=== PATIENT | female | born 1950 | race Caucasian/White ===

== ENCOUNTER 2016-05-10 09:39 | Outpatient (CLI) | payer MEDICARE, OTHER | END 2016-05-10 09:40 | disposition home or self-care (01) | DX: Z12.31 Encounter for screening mammogram for malignant neoplasm of breast (principal); Z80.3 Family history of malignant neoplasm of breast ==

== ENCOUNTER 2016-05-10 09:40 | Outpatient (CLI) | payer MEDICARE, OTHER | END 2016-05-10 09:41 | disposition home or self-care (01) | DX: M85.88 Other specified disorders of bone density and structure, other site (principal) ==

== ENCOUNTER 2016-07-19 05:23 | Emergency (ER) | payer MEDICARE, OTHER ==
[2016-07-19] MEDS ORDERED: IBUPROFEN 600 MG TABLET PO STA (05:40)
[2016-07-19] MEDS ORDERED: ACETAMINOPHEN 325 MG TABLET PO STA (05:41)
[2016-07-19] MEDS ORDERED: oxyCOD/ACETAMIN 5 MG/325 MG TABLET PO STA (06:25)
[2016-07-19] MEDS ORDERED: oxyCOD/ACETAMIN 5 MG/325 MG TABLET PO ONE (06:40)
== END 2016-07-19 06:46 | disposition home or self-care (01) ==
DX: E11.9 Type 2 diabetes mellitus without complications (principal); S82.841A Displaced bimalleolar fracture of right lower leg, initial encounter for closed fracture; X50.0XXA Overexertion from strenuous movement or load, initial encounter; X50.1XXA Overexertion from prolonged static or awkward postures, initial encounter; Y93.9 Activity, unspecified; Y92.009 Unspecified place in unspecified non-institutional (private) residence as the place of occurrence of the external cause; Y99.9 Unspecified external cause status
CPT/HCPCS: 29505; 73610; 99283; 99284; A9270

== ENCOUNTER 2016-07-25 10:25 | Day surgery (SDC) | payer MEDICARE, OTHER ==
[2016-07-25] MEDS ORDERED: ceFAZolin 2 GM/50 ML 50 ML IV ONE (10:26)
[2016-07-25] MEDS ORDERED: LACTATED RINGERS 1,000 ML IV ONE ×2 (11:04→13:10)
[2016-07-25] MEDS ORDERED: INSULIN REGULAR HUMAN 100 UNIT/1 ML 10 ML MDV ONE (11:19)
[2016-07-25] MEDS ORDERED: fentaNYL 100 MCG/2 ML VIAL IVP ONE (12:00)
[2016-07-25] MEDS ORDERED: LIDOCAINE-MPF 2% 5 ML VIAL IM ONE (12:00)
[2016-07-25] MEDS ORDERED: KETOROLAC 30 MG/ML VIAL IVP ONE (12:00)
[2016-07-25] MEDS ORDERED: ONDANSETRON 4 MG/2 ML VIAL IVP ONE (12:00)
[2016-07-25] MEDS ORDERED: HYDROmorphone 1 MG/ML SYRINGE IVP ONE (12:00)
[2016-07-25] MEDS ORDERED: MIDAZOLAM 2 MG/2 ML VIAL IVP ONE (12:00)
[2016-07-25] MEDS ORDERED: ACETAMINOPHEN 1,000 MG/100 ML VIAL IV ONE (12:00)
[2016-07-25] MEDS ORDERED: PROPOFOL 200 MG/20 ML VIAL IVP ONE (12:00)
[2016-07-25] MEDS ORDERED: ROPIVACAINE 0.5% PF 20 ML AMPULE EP ONE (12:00)
[2016-07-25] MEDS ORDERED: BUPIVACAINE 0.5% PF 10 ML VIAL SUBQ ONE ×2 (12:36→13:25)
[2016-07-25] MEDS ORDERED: ACETAMINOPHEN 1,000 MG/100 ML 100 ML IV PRN (20:08)
[2016-07-25] MEDS ORDERED: ONDANSETRON 4 MG/2 ML VIAL IVP PRN (20:08)
[2016-07-25] MEDS ORDERED: LACTATED RINGERS 1,000 ML IV SCH (21:00)
[2016-07-25] MEDS ORDERED: oxyCOD/ACETAMIN 5 MG/325 MG TABLET PO PRN (21:31)
== END 2016-07-25 10:26 | disposition home or self-care (01) ==
PROC: 0QSG04Z Reposition Right Tibia with Internal Fixation Device, Open Approach (ICD-10-PCS; 2016-07-25)
PROC: 0QSJ04Z Reposition Right Fibula with Internal Fixation Device, Open Approach (ICD-10-PCS; principal; 2016-07-25 11:30)
DX: S82.841A Displaced bimalleolar fracture of right lower leg, initial encounter for closed fracture (principal); X50.1XXA Overexertion from prolonged static or awkward postures, initial encounter; Y92.008 Other place in unspecified non-institutional (private) residence as the place of occurrence of the external cause; E11.9 Type 2 diabetes mellitus without complications; G47.30 Sleep apnea, unspecified; M19.90 Unspecified osteoarthritis, unspecified site; Z83.49 Family history of other endocrine, nutritional and metabolic diseases; Z82.61 Family history of arthritis; Z83.3 Family history of diabetes mellitus; Z81.8 Family history of other mental and behavioral disorders; Z80.9 Family history of malignant neoplasm, unspecified; Z79.84 Long term (current) use of oral hypoglycemic drugs
CPT/HCPCS: 27814; 73600; A9270; C1713; J0131; J0690; J1170; J1815; J7120

== ENCOUNTER 2016-11-15 07:35 | Outpatient (CLI) | payer MEDICARE, OTHER ==
--- NOTE | 2016-11-15 12:22 | MRI Report ---
EXAM: RIGHT SHOULDER MRI WITHOUT CONTRAST EXAM DATE: 11/15/2016 08:20 AM. CLINICAL HISTORY: Impingement syndrome of right shoulder. COMPARISON: None. TECHNIQUE: Multiplanar, multisequence T1-weighted and fluid-sensitive sequences of the shoulder witho ut contrast. Other: None. FINDINGS: Rotator Cuff: Full-thickness tear of the distal anterior supraspinatus measuring 1.2 cm medial to lat eral and 1.4 cm anteroposterior. Moderate to severe thickening and increased intrasubstance signal th roughout the distal supraspinatus and infraspinatus as well as upper fibers of the subscapularis. Mil d atrophy of the supraspinatus with minimal fatty infiltration. Long Head Biceps Tendon: Thickening and increased intrasubstance signal throughout the intra-articula r portion. Otherwise intact. Labrum: Linear high signal consistent with small tear at the base of the lower anterior labrum. Adjac ent subchondral cyst formation and mild degree of marrow edema. Some blunting of the superior labrum. Remainder of the labrum appears intact. Bones and Articular Surfaces: There may be small cartilage fissuring adjacent to the anteroinferior l abral tear. Mild cartilage thinning over the humeral head. Irregularity of the humeral head subchondr al bone plate. Marrow edema throughout the humeral head most pronounced in the subchondral region. Ap pearance suggests either humeral head avascular necrosis with some collapse of the articular surface versus late subacute or chronic fracture deformity and secondary degenerative change. Acromioclavicular Joint: Mild degenerative change. Type II acromion. IMPRESSION: 1. Full-thickness tear of the distal anterior supraspinatus measuring 1.2 x 1.4 cm. 2. Moderate to severe supraspinatus, infraspinatus and subscapularis tendinosis. 3. Tear at the anteroinferior glenoid with some adjacent cartilage fissuring, subchondral edema and s ubchondral cyst formation. 4. Deformity of the humeral head subchondral bone plate with pronounced subchondral edema. 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 Alternatively, old posttraumatic deformity with secondary degenerative change. 5. Moderate tendinosis of the intra-articular long head biceps. [facility] MUSCULOSKELET[facility]IOLOG[facility] SECTION Referring Provider Line: [phone] SITE ID: [id number]
== END 2016-11-15 07:36 | disposition home or self-care (01) ==
LOC: DI 07:35
PROVIDERS: ATTEND Orthopaedic Surgery
DX: S46.811A Strain of other muscles, fascia and tendons at shoulder and upper arm level, right arm, initial encounter (principal); M21.821 Other specified acquired deformities of right upper arm; M75.91 Shoulder lesion, unspecified, right shoulder

== ENCOUNTER 2016-12-10 10:49 | Outpatient (CLI) | payer MEDICARE, OTHER ==
[2016-12-10 11:03] LABS: BASOPHILS % (AUTO) 0.4 %; EOSINOPHILS # (AUTO) 0.1 10^3/uL (0.0-0.7); EOSINOPHILS % (AUTO) 0.9 %; HCT - HEMATOCRIT 45.5 % (37.0-47.0); HGB - HEMOGLOBIN 15.3 g/dL (12.0-16.0); LYMPHOCYTES # (AUTO) 1.7 10^3/uL (1.5-3.5); LYMPHOCYTES % (AUTO) 18.6 %; MEAN CORPUSCULAR HEMOGLOBIN 31.4 pg (27.0-31.0); MEAN CORPUSCULAR HGB CONC 33.6 g/dL (32.0-36.0); MEAN CORPUSCULAR VOLUME 93.4 fL (81.0-99.0); MEAN PLATELET VOLUME 7.8 fL (7.9-10.8); MONOCYTES # (AUTO) 0.7 10^3/uL (0.0-1.0); MONOCYTES % (AUTO) 8.1 %; NEUTROPHILS # (AUTO) 6.4 10^3/uL (1.5-6.6); RED BLOOD COUNT 4.88 10^6/uL (4.20-5.40); RED CELL DISTRIBUTION WIDTH 13.2 % (12.0-15.0); UNCORRECTED WHITE BLOOD COUNT 8.9 x10^3/uL; WHITE BLOOD COUNT 8.9 x10^3/uL (4.8-10.8)
[2016-12-10 11:34] LABS: ALBUMIN/GLOBULIN RATIO 1.3 (1.0-2.2); BILIRUBIN,TOTAL 0.7 mg/dL (0.2-1.0); CALCIUM 9.4 mg/dL (8.5-10.3); CREATININE 0.7 mg/dL (0.4-1.0); POTASSIUM 4.1 mmol/L (3.5-5.0); TOTAL PROTEIN 7.5 g/dL (6.7-8.2)
== END 2016-12-10 10:50 | disposition home or self-care (01) ==
LOC: LAB 10:49
PROVIDERS: ATTEND Orthopaedic Surgery
DX: Z01.818 Encounter for other preprocedural examination (principal); Z79.899 Other long term (current) drug therapy
CPT/HCPCS: 36415; 80053; 85025; 93005

== ENCOUNTER → 2016-12-11 | Outpatient (CLI) | payer MEDICARE, OTHER ==
[2016-12-11 20:12] LABS: CHOL/HDL RATIO 4.9 (<4.4); CHOLESTEROL 251 mg/dL; HDL CHOLESTEROL 51 mg/dL; LDL/HDL RATIO 2.7 (<4.4); TRIGLYCERIDES 307 mg/dL; VLDL CHOLESTEROL 61 mg/dL
[2016-12-11 20:37] LABS: HEMOGLOBIN A1C 1.68 g/dL
[2016-12-11 20:42] LABS: THYROID STIMULATING HORMONE 1.99 uIU/mL (0.34-5.60)
== END ==
LOC: LAB.WCP 08:00
PROVIDERS: ATTEND Family Medicine
DX: E11.9 Type 2 diabetes mellitus without complications (principal); R53.83 Other fatigue
CPT/HCPCS: 36415; 80061; 83036; 84439; 84443; 84481; 84482

== ENCOUNTER 2017-04-15 08:00 | Outpatient (CLI) | payer MEDICARE, OTHER ==
[2017-04-15 19:02] LABS: BASOPHILS % (AUTO) 0.3 %; EOSINOPHILS # (AUTO) 0.1 10^3/uL (0.0-0.7); EOSINOPHILS % (AUTO) 1.7 %; HGB - HEMOGLOBIN 14.2 g/dL (12.0-16.0); LYMPHOCYTES # (AUTO) 1.8 10^3/uL (1.5-3.5); LYMPHOCYTES % (AUTO) 21.3 %; MEAN CORPUSCULAR HEMOGLOBIN 31.3 pg (27.0-31.0); MEAN CORPUSCULAR VOLUME 94.9 fL (81.0-99.0); MONOCYTES # (AUTO) 0.8 10^3/uL (0.0-1.0); MONOCYTES % (AUTO) 9.5 %; NEUTROPHILS # (AUTO) 5.7 10^3/uL (1.5-6.6); NEUTROPHILS % (AUTO) 67.2 %; PLT - PLATELET COUNT 263 10^3/uL (130-450); RED BLOOD COUNT 4.55 10^6/uL (4.20-5.40); WHITE BLOOD COUNT 8.6 x10^3/uL (4.8-10.8)
[2017-04-15 19:25] LABS: ALBUMIN 4.2 g/dL (3.2-5.5); ALBUMIN/GLOBULIN RATIO 1.3 (1.0-2.2); ALKALINE PHOSPHATASE 107 IU/L (42-121); ALT ALANINE AMINOTRANSFERASE 31 IU/L (10-60); AST ASPARTATE AMINOTRANSFERASE 23 IU/L (10-42); BILIRUBIN,TOTAL 0.8 mg/dL (0.2-1.0); BUN - BLOOD UREA NITROGEN 16 mg/dL (6-20); CALCIUM 8.9 mg/dL (8.5-10.3); CARBON DIOXIDE - CO2 21 mmol/L (21-32); CHLORIDE 104 mmol/L (101-111); CHOL/HDL RATIO 4.9 (<4.4); CHOLESTEROL 231 mg/dL; CREATININE 0.5 mg/dL (0.4-1.0); GFR - MDRD 123 (>89); GLUCOSE 143 mg/dL (70-100); HDL CHOLESTEROL 47 mg/dL; LDL CHOLESTEROL,CALCULATED 151 mg/dL; LDL/HDL RATIO 3.2 (<4.4); SODIUM 134 mmol/L (135-145); TOTAL PROTEIN 7.4 g/dL (6.7-8.2); VLDL CHOLESTEROL 33 mg/dL
[2017-04-15 19:40] LABS: HB2 TOTAL 15.2 g/dL; HEMOGLOBIN A1C 0.99 g/dL; HEMOGLOBIN A1C % 8.1 % (4.6-6.2)
== END 2017-04-15 08:01 | disposition home or self-care (01) ==
LOC: LAB.WCP 08:00
PROVIDERS: ATTEND Family Medicine
DX: E11.65 Type 2 diabetes mellitus with hyperglycemia (principal)
CPT/HCPCS: 36415; 80053; 80061; 82043; 83036; 85025

== ENCOUNTER 2017-06-06 14:47 | Outpatient (CLI) | payer MEDICARE, OTHER | END 2017-06-06 14:48 | disposition home or self-care (01) | LOC: RT 14:47 | PROVIDERS: ATTEND Orthopaedic Surgery | DX: Z01.810 Encounter for preprocedural cardiovascular examination (principal) | CPT/HCPCS: 93005 ==

== ENCOUNTER 2017-06-20 08:00 | Outpatient (CLI) | payer MEDICARE, OTHER ==
[2017-06-20 18:59] LABS: BASOPHILS % (AUTO) 0.5 %; EOSINOPHILS # (AUTO) 0.1 10^3/uL (0.0-0.7); EOSINOPHILS % (AUTO) 1.6 %; HGB - HEMOGLOBIN 13.4 g/dL (12.0-16.0); LYMPHOCYTES # (AUTO) 1.7 10^3/uL (1.5-3.5); LYMPHOCYTES % (AUTO) 25.3 %; MEAN CORPUSCULAR HEMOGLOBIN 30.4 pg (27.0-31.0); MEAN CORPUSCULAR HGB CONC 32.6 g/dL (32.0-36.0); MEAN CORPUSCULAR VOLUME 93.3 fL (81.0-99.0); MEAN PLATELET VOLUME 8.2 fL (7.9-10.8); MONOCYTES # (AUTO) 0.6 10^3/uL (0.0-1.0); MONOCYTES % (AUTO) 9.3 %; NEUTROPHILS # (AUTO) 4.4 10^3/uL (1.5-6.6); NEUTROPHILS % (AUTO) 63.3 %; PLT - PLATELET COUNT 275 10^3/uL (130-450); RED BLOOD COUNT 4.41 10^6/uL (4.20-5.40); RED CELL DISTRIBUTION WIDTH 13.6 % (12.0-15.0); WHITE BLOOD COUNT 6.9 x10^3/uL (4.8-10.8)
[2017-06-20 19:25] LABS: BILIRUBIN,URINE NEGATIVE (NEGATIVE); GLUCOSE, URINE (UA) 100 mg/dL (NEGATIVE); KETONES,URINE (UA) NEGATIVE (NEGATIVE); LEUKOCYTE ESTERASE, URINE NEGATIVE (NEGATIVE); NITRITE,URINE NEGATIVE (NEGATIVE); OCCULT BLOOD,URINE NEGATIVE (NEGATIVE); PROTEIN,URINE 30 mg/dL (NEGATIVE); UROBILINOGEN,URINE 0.2 (NORMAL) E.U./dL (NORMAL)
[2017-06-20 19:38] LABS: HB2 TOTAL 14.2 g/dL; HEMOGLOBIN A1C 1.05 g/dL; HEMOGLOBIN A1C % 8.9 % (4.6-6.2)
[2017-06-20 19:42] LABS: CLARITY,URINE HAZY (CLEAR)
[2017-06-20 19:44] LABS: CALCIUM 8.6 mg/dL (8.5-10.3); CREATININE 0.5 mg/dL (0.4-1.0)
[2017-06-20 20:33] LABS: BACTERIA,URINE None Seen /HPF (None Seen); RBC,URINE 0-5 /HPF (0-5); SQUAMOUS EPITHELIAL CELL,UR FEW Squamous (<= Few)
== END 2017-06-20 08:01 | disposition home or self-care (01) ==
LOC: LAB.WCP 08:00
PROVIDERS: ATTEND Orthopaedic Surgery
DX: Z01.812 Encounter for preprocedural laboratory examination (principal); D64.9 Anemia, unspecified; M25.511 Pain in right shoulder; N39.0 Urinary tract infection, site not specified; R73.9 Hyperglycemia, unspecified
CPT/HCPCS: 36415; 80048; 81001; 81003; 83036; 84466; 85025; 87086

== ENCOUNTER 2018-06-16 14:40 | Outpatient (CLI) | payer MEDICARE, OTHER ==
[2018-06-16 19:04] LABS: HB2 TOTAL 16.8 g/dL; HEMOGLOBIN A1C 1.66 g/dL; HEMOGLOBIN A1C % 11.2 % (4.6-6.2)
[2018-06-16 19:11] LABS: ALBUMIN 3.8 g/dL (3.2-5.5); ALKALINE PHOSPHATASE 132 IU/L (42-121); ALT ALANINE AMINOTRANSFERASE 24 IU/L (10-60); AST ASPARTATE AMINOTRANSFERASE 26 IU/L (10-42); BILIRUBIN,TOTAL 1.1 mg/dL (0.2-1.0); BUN - BLOOD UREA NITROGEN 10 mg/dL (6-20); CALCIUM 9.3 mg/dL (8.5-10.3); CARBON DIOXIDE - CO2 26 mmol/L (21-32); CHLORIDE 98 mmol/L (101-111); CHOL/HDL RATIO 4.3 (<4.4); CHOLESTEROL 232 mg/dL; CREATININE 0.5 mg/dL (0.4-1.0); GFR - MDRD 123 (>89); GLUCOSE 187 mg/dL (70-100); HDL CHOLESTEROL 54 mg/dL; LDL CHOLESTEROL,CALCULATED 133 mg/dL; LDL/HDL RATIO 2.5 (<4.4); SODIUM 136 mmol/L (135-145); TOTAL PROTEIN 7.6 g/dL (6.7-8.2); VLDL CHOLESTEROL 45 mg/dL
[2018-06-16 19:27] LABS: BASOPHILS % (AUTO) 0.3 %; EOSINOPHILS # (AUTO) 0.1 10^3/uL (0.0-0.7); EOSINOPHILS % (AUTO) 1.2 %; HGB - HEMOGLOBIN 15.3 g/dL (12.0-16.0); LYMPHOCYTES # (AUTO) 2.1 10^3/uL (1.5-3.5); LYMPHOCYTES % (AUTO) 21.3 %; MEAN CORPUSCULAR HEMOGLOBIN 30.6 pg (27.0-31.0); MEAN CORPUSCULAR HGB CONC 33.1 g/dL (32.0-36.0); MEAN CORPUSCULAR VOLUME 92.2 fL (81.0-99.0); MEAN PLATELET VOLUME 8.4 fL (7.9-10.8); MONOCYTES # (AUTO) 0.8 10^3/uL (0.0-1.0); MONOCYTES % (AUTO) 7.9 %; NEUTROPHILS # (AUTO) 6.8 10^3/uL (1.5-6.6); NEUTROPHILS % (AUTO) 69.3 %; PLT - PLATELET COUNT 300 10^3/uL (130-450); WHITE BLOOD COUNT 9.8 x10^3/uL (4.8-10.8)
== END 2018-06-16 14:41 | disposition home or self-care (01) ==
LOC: LAB.WCP 14:40
PROVIDERS: ATTEND Family Medicine
DX: E11.65 Type 2 diabetes mellitus with hyperglycemia (principal)
CPT/HCPCS: 36415; 80053; 80061; 82043; 83036; 83721; 84443; 85025

== ENCOUNTER 2018-09-17 11:54 | Outpatient (CLI) | payer MEDICARE, OTHER ==
[2018-09-17 19:17] LABS: HGB - HEMOGLOBIN 14.7 g/dL (12.0-16.0); MEAN CORPUSCULAR HEMOGLOBIN 31.2 pg (27.0-31.0); MEAN CORPUSCULAR HGB CONC 33.5 g/dL (32.0-36.0); MEAN CORPUSCULAR VOLUME 93.2 fL (81.0-99.0); MEAN PLATELET VOLUME 8.9 fL (7.9-10.8); RED BLOOD COUNT 4.71 10^6/uL (4.20-5.40); RED CELL DISTRIBUTION WIDTH 13.7 % (12.0-15.0); WHITE BLOOD COUNT 8.7 x10^3/uL (4.8-10.8)
[2018-09-17 19:34] LABS: BUN - BLOOD UREA NITROGEN 13 mg/dL (6-20); CARBON DIOXIDE - CO2 22 mmol/L (21-32); CHLORIDE 101 mmol/L (101-111); CREATININE 0.5 mg/dL (0.4-1.0); GFR - MDRD 123 (>89); GLUCOSE 436 mg/dL (70-100); SODIUM 134 mmol/L (135-145); URIC ACID 3.2 mg/dL (2.6-7.2)
[2018-09-17 20:16] LABS: CRP - C-REACTIVE PROTEIN < 1.0 mg/dL (0-1.0)
[2018-09-18 19:44] LABS: HB2 TOTAL 15.9 g/dL; HEMOGLOBIN A1C 1.9 g/dL; HEMOGLOBIN A1C % 13.1 % (4.6-6.2)
== END 2018-09-17 11:55 | disposition home or self-care (01) ==
LOC: LAB.WCP 11:54
PROVIDERS: ATTEND Family Medicine
DX: E11.8 Type 2 diabetes mellitus with unspecified complications (principal); M79.10 Myalgia, unspecified site
CPT/HCPCS: 36415; 80048; 81599; 83036; 84443; 84550; 85027; 85651; 86140

== ENCOUNTER 2018-10-06 18:40 | Outpatient (CLI) | payer MEDICARE, OTHER | END 2018-10-06 19:15 | disposition home or self-care (01) | LOC: LAB.R 18:40 | PROVIDERS: ATTEND Physician Assistant Medical | DX: N30.00 Acute cystitis without hematuria (principal) | CPT/HCPCS: 87077; 87086; 87181 ==

== ENCOUNTER 2019-03-11 08:00 | Outpatient (CLI) | payer MEDICARE, OTHER ==
[2019-03-11 19:01] LABS: ALBUMIN 3.9 g/dL (3.2-5.5); ALBUMIN/GLOBULIN RATIO 1.1 (1.0-2.2); BILIRUBIN,TOTAL 0.8 mg/dL (0.2-1.0); CALCIUM 8.9 mg/dL (8.5-10.3); CREATININE 0.6 mg/dL (0.4-1.0); TOTAL PROTEIN 7.3 g/dL (6.7-8.2)
[2019-03-11 19:22] LABS: HB2 TOTAL 14.8 g/dL; HEMOGLOBIN A1C 0.9 g/dL; HEMOGLOBIN A1C % 7.7 % (4.6-6.2)
== END 2019-03-11 23:59 | disposition home or self-care (01) ==
LOC: LAB.WCP 08:00
PROVIDERS: ATTEND Family Medicine
DX: Z79.4 Long term (current) use of insulin (principal); E11.65 Type 2 diabetes mellitus with hyperglycemia
CPT/HCPCS: 36415; 80053; 83036

== ENCOUNTER 2019-04-16 12:35 | Outpatient (CLI) | payer MEDICARE, OTHER | END 2019-04-16 12:36 | disposition critical access hospital (66) | LOC: EMS 12:35 | PROVIDERS: ATTEND Surgery | DX: R06.03 Acute respiratory distress (principal); R06.02 Shortness of breath; R05 Cough | CPT/HCPCS: A0425; A0427 ==

== ENCOUNTER 2019-04-16 12:48 | Emergency (ER) | payer MEDICARE, OTHER ==
[2019-04-16] MEDS ORDERED: ALBUTEROL NEB 2.5 MG/3 ML INH STA (13:32)
[2019-04-16] MEDS ORDERED: predniSONE 20 MG TABLET PO STA (14:22)
--- NOTE | 2019-04-16 14:22 | ED Physician Documentation ---
History of Present Illness - Stated complaint Stated Complaint: SOA - Chief complaint Chief Complaint: Resp - History obtained from History obtained from: Patient, EMS - History of Present Illness Timing: How many days ago (Several days) Pain level max: 0 Pain level now: 0 Improved by: nebulizer Worsened by: exertion, cough - Additonal information Additional information: 68-year-old female presents to the emergency department with a cough for the past few weeks. She states over the past few days had difficulty breathing. Has used inhalers in the past, but she states that she has not used 1 this time. She saw her doctor this morning and was prescribed steroids and an inhaler, she started feeling more short of breath when she got home and called 911. EMS arrived and states that she appeared hypoxic. They gave her a DuoNeb en route and she is feeling better. No fevers. Review of Systems Ten Systems: 10 systems reviewed and negative Constitutional: denies: Fever, Chills Nose: denies: Rhinorrhea / runny nose, Congestion GI: denies: Vomiting, Diarrhea Skin: denies: Rash Musculoskeletal: denies: Neck pain, Back pain Neurologic: denies: Headache PD PAST MEDICAL HISTORY - Past Medical History Cardiovascular: None Respiratory: Sleep apnea Endocrine/Autoimmune: Type 2 diabetes GI: GERD : None HEENT: None Psych: Depression, Anxiety, ADD/ADHD Musculoskeletal: Osteoarthritis, Fibromyalgia Derm: None - Past Surgical History Past Surgical History: Yes General: Colonoscopy Ortho: Carpal Tunnel surgery, Other HEENT: Other - Present Medications Home Medications: Ambulatory Orders Medication Instructions Recorded Confirmed Acetaminophen [Tylenol] 650 mg PO Q4HR PRN 12/10/16 09/29/18 Cyanocobalamin (Vitamin B-12) 1,000 mcg PO BID 12/10/16 09/29/18 [Vitamin B-12] Folic Acid 0.4 mg PO DAILY 12/10/16 09/29/18 Ibuprofen [Motrin] 400 - 800 mg PO Q4HR PRN 12/10/16 09/29/18 Metformin HCl [Metformin HCl ER] 1,000 mg PO BID 12/10/16 09/29/18 Ascorbic Acid [Vitamin C] 500 mg PO DAILY 09/29/18 09/29/18 Cholecalciferol (Vitamin D3) 4,000 unit PO DAILY 09/29/18 09/29/18 [Vitamin D] Lactobacillus Acidophilus 1 each PO DAILY 09/29/18 09/29/18 [Probiotic Acidophilus] Phenylephrine HCl [Sudafed PE] 10 mg PO DAILY PM PRN 09/29/18 09/29/18 diphenhydrAMINE [Benadryl] 25 mg PO Q4-6H PRN 09/29/18 09/29/18 Albuterol Sulfate [Proair Hfa 1 - 2 puffs INH Q4H PRN #1 inhaler 04/16/19 Inhaler] - Allergies Allergies/Adverse Reactions: Allergies Allergy/AdvReac Type Severity Reaction Status Date / Time No Known Drug Allergies Allergy Verified 04/16/19 12:52 - Social History Does the pt smoke?: No Smoking Status: Never smoker Does the pt drink ETOH?: No Does the pt have substance abuse?: No - Immunizations Immunizations are current?: Yes - POLST Patient has POLST: No PD ED PE NORMAL - Vitals Vital signs reviewed: Yes - General General: Alert and oriented X 3, No acute distress, Well developed/nourished - HEENT HEENT: Ears normal, Moist mucous membranes, Pharynx benign - Neck Neck: Supple, no meningeal sign - Cardiac Cardiac: RRR - Respiratory Respiratory: No respiratory distress, Other (Diminished breath sounds and wheezing bilaterally) - Abdomen Abdomen: Soft, Non tender, Non distended - Derm Derm: Warm and dry - Extremities Extremities: No calf tenderness / cord - Neuro Neuro: Alert and oriented X 3 - Psych Psych: Normal mood, Normal affect Results - Vitals Vitals: Vital Signs - 24 hr 04/16/19 04/16/19 04/16/19 12:52 13:10 14:01 Temperature 37.0 C 36.8 C Heart Rate 130 H 106 H 97 Respiratory 18 24 20 Rate Blood Pressure 144/84 H 144/83 H O2 Saturation 84 L 96 04/16/19 04/16/19 14:37 15:41 Temperature 36.8 C Heart Rate 103 H 99 Respiratory 18 24 Rate Blood Pressure 138/78 H 137/74 H O2 Saturation 92 94 Oxygen O2 Source Room air Oxygen Flow Rate 4 - Labs Labs: Laboratory Tests 04/16/19 04/16/19 14:19 14:19 WBC 16.6 H RBC 4.88 Hgb 15.3 Hct 46.0 MCV 94.3 MCH 31.4 H MCHC 33.3 RDW 13.2 Plt Count 292 MPV 9.2 Neut # (Auto) 14.0 H Lymph # (Auto) 1.1 L Alger # (Auto) 1.1 H Eos # (Auto) 0.1 Baso # (Auto) 0.1 Absolute Nucleated RBC 0.00 Nucleated RBC % 0.0 Sodium 134 L Potassium 4.1 Chloride 101 Carbon Dioxide 23 Anion Gap 10.0 BUN 16 Creatinine 0.7 Estimated GFR (MDRD) 83 L Glucose 224 H Calcium 9.0 Total Bilirubin 0.7 AST 48 H ALT 38 Alkaline Phosphatase 117 Total Protein 7.6 Albumin 3.9 Globulin 3.7 Albumin/Globulin Ratio 1.1 Lipase 72 H - Rads (name of study) cxr Radiology: Prelim report reviewed, EMP read contemporaneously, See rad report (No acute disease) PD MEDICAL DECISION MAKING - ED course Complexity details: reviewed results, re-evaluated patient, considered differential, d/w patient ED course: Patient feels better after steroids and nebulizer treatments. Patient is well- appearing, nontoxic. Afebrile. No hypoxia or respiratory distress after treatment. Ambulating without difficulty. She only has a nebulizer at home, will prescribe an inhaler for her as well. She already has a prednisone prescription at home. Patient counseled regarding signs and symptoms for which I believe and urgent re-evaluation would be necessary. Patient with good understanding of and agreement to plan and is comfortable going home at this time This document was made in part using voice recognition software. While efforts are made to proofread this document, sound alike and grammatical errors may occur. Departure - Departure Disposition: 01 Home, Self Care Clinical Impression: Viral URI Condition: Good Instructions: ED URI Viral W Wheezing Follow-Up: Vern Muhammad DO [Primary Care Provider] - Within 1 week Prescriptions: Albuterol Sulfate [Proair Hfa Inhaler] 1 - 2 puffs INH Q4H PRN #1 inhaler PRN Reason: Shortness Of Air/Wheezing Comments: Continue the prednisone and albuterol as prescribed by your doctor this morning. Return if you worsen. Discharge Date/Time: 04/16/19 16:04
[2019-04-16 14:25] LABS: BASOPHILS # (AUTO) 0.1 10^3/uL (0.0-0.1); BASOPHILS % (AUTO) 0.5 %; EOSINOPHILS # (AUTO) 0.1 10^3/uL (0.0-0.7); EOSINOPHILS % (AUTO) 0.6 %; HGB - HEMOGLOBIN 15.3 g/dL (12.0-16.0); LYMPHOCYTES # (AUTO) 1.1 10^3/uL (1.5-3.5); LYMPHOCYTES % (AUTO) 6.9 %; MEAN CORPUSCULAR HEMOGLOBIN 31.4 pg (27.0-31.0); MEAN CORPUSCULAR HGB CONC 33.3 g/dL (32.0-36.0); MEAN CORPUSCULAR VOLUME 94.3 fL (81.0-99.0); MEAN PLATELET VOLUME 9.2 fL (7.9-10.8); MONOCYTES # (AUTO) 1.1 10^3/uL (0.0-1.0); MONOCYTES % (AUTO) 6.6 %; NEUTROPHILS % (AUTO) 84.4 %; PLT - PLATELET COUNT 292 10^3/uL (130-450); RED BLOOD COUNT 4.88 10^6/uL (4.20-5.40); RED CELL DISTRIBUTION WIDTH 13.2 % (12.0-15.0); WHITE BLOOD COUNT 16.6 x10^3/uL (4.8-10.8)
[2019-04-16] MEDS ORDERED: predniSONE 20 MG TABLET ONE (14:32)
--- NOTE | 2019-04-16 14:36 | XRAY Report ---
Reason: dyspnea Procedure Date: 04/16/2019 Accession Number: [id number] / [id number] Procedure: XR - Chest 1 View X-Ray CPT Code: 32783 Final Report FULL RESULT: EXAM: CHEST RADIOGRAPHY EXAM DATE: 04/16/2019 02:26 PM. CLINICAL HISTORY: Dyspnea. COMPARISON: None. TECHNIQUE: 1 view. FINDINGS: Lungs/Pleura: No focal opacities evident. No pleural effusion. No pneumothorax. Mediastinum: Atherosclerotic aortic calcification. Other: Potential small hiatal hernia. IMPRESSION: No consolidation. [facility]
[2019-04-16 14:38] LABS: ALBUMIN 3.9 g/dL (3.2-5.5); ALBUMIN/GLOBULIN RATIO 1.1 (1.0-2.2); BILIRUBIN,TOTAL 0.7 mg/dL (0.2-1.0); CREATININE 0.7 mg/dL (0.4-1.0); TOTAL PROTEIN 7.6 g/dL (6.7-8.2)
[2019-04-16 15:42] VITALS: BP 137/74
== END 2019-04-16 16:04 | disposition home or self-care (01) ==
LOC: EDUNIT# → ED 12:48
DX: J06.9 Acute upper respiratory infection, unspecified (principal); R06.2 Wheezing; E11.9 Type 2 diabetes mellitus without complications; Z79.84 Long term (current) use of oral hypoglycemic drugs
CPT/HCPCS: 36415; 71045; 80053; 83690; 85025; 94640; 99284; J7512

== ENCOUNTER 2019-04-16 23:32 | Emergency (ER) | payer MEDICARE, OTHER ==
--- NOTE | 2019-04-16 23:42 | ED Physician Documentation ---
PD HPI DYSPNEA - Stated complaint Stated Complaint: SOA - Chief complaint Chief Complaint: Resp - History obtained from History obtained from: Patient - History of Present Illness Timing - onset: How many weeks ago ("few weeks" (per patient) of sinus congestion with post-nasal drip and occasional cough and frequently "clearing throat". The cough has been steadily worsening, and became associated with dyspnea past 1-2 days. She saw her PMD this morning, was prescribed medication for her nebulizer as well as steroid (prednisone). Patient had not yet filled the rx when the difficulty breathing worsened and thus she came to [facility] ED. She was found to have wheezing on exam and responded well to neb treatements. Also given 60mg prednisone. CXR and blood tests were reassuring although 16K WBC noted. She says she felt back to baseline by the time she was discharged. She then filled the prescriptions. Her breathing worsened and thus she returns to the ED for reevaluation) Timing - duration: Weeks Timing - details: Gradual onset Pain level max: 0 Pain level now: 0 Improved by: Inhaler/neb, Rest Worsened by: Exertion Associated symptoms: Cough. No: Fever, Wheezing, Chest pain / discomfort, Palpitations, Diaphoresis, Bilateral edema, Unilateral edema Recently seen: Clinic, Emergency Dept Review of Systems Constitutional: denies: Fever, Chills, Sweats Ears: denies: Ear pain Throat: denies: Sore throat Cardiac: reports: Reviewed and negative Respiratory: reports: Dyspnea, Cough. denies: Hemoptysis, Wheezing GI: reports: Reviewed and negative Skin: denies: Rash Musculoskeletal: denies: Neck pain PD PAST MEDICAL HISTORY - Past Medical History Cardiovascular: None Respiratory: Sleep apnea Endocrine/Autoimmune: Type 2 diabetes GI: GERD : None HEENT: None Psych: Depression, Anxiety, ADD/ADHD Musculoskeletal: Osteoarthritis, Fibromyalgia Derm: None - Past Surgical History Past Surgical History: Yes General: Colonoscopy Ortho: Carpal Tunnel surgery, Other HEENT: Other - Present Medications Home Medications: Ambulatory Orders Medication Instructions Recorded Confirmed Acetaminophen [Tylenol] 650 mg PO Q4HR PRN 12/10/16 09/29/18 Cyanocobalamin (Vitamin B-12) 1,000 mcg PO BID 12/10/16 09/29/18 [Vitamin B-12] Folic Acid 0.4 mg PO DAILY 12/10/16 09/29/18 Ibuprofen [Motrin] 400 - 800 mg PO Q4HR PRN 12/10/16 09/29/18 Metformin HCl [Metformin HCl ER] 1,000 mg PO BID 12/10/16 09/29/18 Ascorbic Acid [Vitamin C] 500 mg PO DAILY 09/29/18 09/29/18 Cholecalciferol (Vitamin D3) 4,000 unit PO DAILY 09/29/18 09/29/18 [Vitamin D] Lactobacillus Acidophilus 1 each PO DAILY 09/29/18 09/29/18 [Probiotic Acidophilus] Phenylephrine HCl [Sudafed PE] 10 mg PO DAILY PM PRN 09/29/18 09/29/18 diphenhydrAMINE [Benadryl] 25 mg PO Q4-6H PRN 09/29/18 09/29/18 Albuterol Sulfate [Proair Hfa 1 - 2 puffs INH Q4H PRN #1 inhaler 04/16/19 Inhaler] - Allergies Allergies/Adverse Reactions: Allergies Allergy/AdvReac Type Severity Reaction Status Date / Time No Known Drug Allergies Allergy Verified 04/16/19 23:36 - Social History Does the pt smoke?: No Smoking Status: Never smoker Does the pt drink ETOH?: No Does the pt have substance abuse?: No - Immunizations Immunizations are current?: Yes - POLST Patient has POLST: No PD ED PE NORMAL - Vitals Vital signs reviewed: Yes - General General: Alert and oriented X 3, No acute distress, Well developed/nourished, Other (inspiratory stridor but otherwise NAD, speaking in full sentences) - HEENT HEENT: Moist mucous membranes, Pharynx benign - Neck Neck: Supple, no meningeal sign - Cardiac Cardiac: RRR, No murmur - Respiratory Respiratory: No respiratory distress, Clear bilaterally - Abdomen Abdomen: Soft, Non tender - Derm Derm: Normal color, Warm and dry - Extremities Extremities: No edema Results - Vitals Vitals: Oxygen O2 Source Room air - Labs Labs: Laboratory Tests 04/17/19 04/17/19 01:58 01:58 WBC 13.9 H RBC 4.62 Hgb 14.1 Hct 43.3 MCV 93.7 MCH 30.5 MCHC 32.6 RDW 13.3 Plt Count 335 MPV 9.2 Neut # (Auto) 11.4 H Lymph # (Auto) 1.2 L Ray # (Auto) 1.2 H Eos # (Auto) 0.0 Baso # (Auto) 0.0 Absolute Nucleated RBC 0.00 Nucleated RBC % 0.0 Sodium 137 Potassium 4.1 Chloride 104 Carbon Dioxide 22 Anion Gap 11.0 BUN 22 H Creatinine 0.9 Estimated GFR (MDRD) 62 L Glucose 235 H Calcium 9.4 - Rads (name of study) CT chest w/contrast Radiology: Prelim report reviewed, See rad report CT neck w/ contrast Radiology: Prelim report reviewed, See rad report PD MEDICAL DECISION MAKING - ED course Complexity details: reviewed results, re-evaluated patient, considered differential, d/w patient ED course: modest improvement after duoneb, both by patient report as well as noticeable decrease in inspiratory stridor. While awaiting CT results, her stridor and report of dyspnea worsened. Given another neb (albuterol). I discussed this case with process project engineer recreation coordinator at [facility]; he recommends I discuss case with ENT. Patient did not have noticeable improvement with albuterol, although she did subsequently gradually improve without further intervention. I then d/w Dr. Agee (ENT at [facility]); he recommends 20mg IV decadron and can discharge if she continues to improve. This medication/dose was given and patient continued to improve. Prior to discharge, she had no stridor at rest, mild inspiratory stridor with ambulation. She is comfortable with d/c and has appointment already arranged to see PMD on Friday. I encouraged her to return if worse in any way Departure - Departure Disposition: 01 Home, Self Care Clinical Impression: Stridor Dyspnea Qualifiers: Dyspnea type: unspecified Qualified Code(s): R06.00 - Dyspnea, unspecified Condition: Good Instructions: ED Dyspnea Shortness of Breath Follow-Up: Kem Agee MD [Physician No Access] - Vern Muhammad DO [Primary Care Provider] - (Friday as scheduled. ) Discharge Date/Time: 04/17/19 06:09
[2019-04-16] MEDS ORDERED: IPRATROPIUM/ALBUTEROL 3 ML NEB INH STA (23:44)
[2019-04-17 02:03] LABS: BASOPHILS % (AUTO) 0.1 %; HGB - HEMOGLOBIN 14.1 g/dL (12.0-16.0); LYMPHOCYTES # (AUTO) 1.2 10^3/uL (1.5-3.5); LYMPHOCYTES % (AUTO) 8.6 %; MEAN CORPUSCULAR HEMOGLOBIN 30.5 pg (27.0-31.0); MEAN CORPUSCULAR HGB CONC 32.6 g/dL (32.0-36.0); MEAN CORPUSCULAR VOLUME 93.7 fL (81.0-99.0); MEAN PLATELET VOLUME 9.2 fL (7.9-10.8); MONOCYTES # (AUTO) 1.2 10^3/uL (0.0-1.0); MONOCYTES % (AUTO) 8.3 %; NEUTROPHILS # (AUTO) 11.4 10^3/uL (1.5-6.6); NEUTROPHILS % (AUTO) 82.3 %; PLT - PLATELET COUNT 335 10^3/uL (130-450); RED BLOOD COUNT 4.62 10^6/uL (4.20-5.40); RED CELL DISTRIBUTION WIDTH 13.3 % (12.0-15.0); WHITE BLOOD COUNT 13.9 x10^3/uL (4.8-10.8)
[2019-04-17 02:10] LABS: CALCIUM 9.4 mg/dL (8.5-10.3); CREATININE 0.9 mg/dL (0.4-1.0)
[2019-04-17] MEDS ORDERED: IOVERSOL 320 100 ML VIAL IVP ONE ×2 (02:18→03:06)
--- NOTE | 2019-04-17 03:20 | CT Report ---
Reason: dyspnea, stridor Procedure Date: 04/17/2019 Accession Number: [id number] / [id number] Procedure: CT - CHEST W CPT Code: Final Report FULL RESULT: EXAM: CT CHEST EXAM DATE:04/17/2019 02:36 AM CLINICAL HISTORY: Dyspnea, stridor. COMPARISONS: None. TECHNIQUE: Routine helical CT imaging was performed through the chest. IV contrast: OPTI 320 100ML. Oral contrast No. Reconstructions: Coronal and sagittal. In accordance with CT protocol optimization, one or more of the following dose reduction techniques were utilized for this exam: automated exposure control, adjustment of mA and/or KV based on patient size, or use of iterative reconstructive technique. FINDINGS: Lungs/Pleura: Multifocal air trapping throughout both lungs greatest in the left lower lobe where there is also faint groundglass opacification. 5 mm nodule in the lateral segment of middle lobe image 2 of 3 series 11. Pulmonary vasculature is normal. No pleural effusion. No pneumothorax. Heart/mediastinum: Calcification at the wall of the left atrium. No pericardial effusion. No lymphadenopathy or mass. Bones: Unremarkable. Visualized Abdomen: Unremarkable. Other: Moderate coronary artery and mild aortic atherosclerotic calcifications. IMPRESSION: Multifocal air trapping throughout both lungs and ground glass opacification in the left lower lobe, which may reflect small airways disease from inflammation or infection. Calcification at the wall of the left atrium, which may reflect chronic thrombus. A workup for atrial fibrillation may be considered. Moderate coronary artery and mild aortic atherosclerotic calcifications. 5 mm pulmonary nodule in the right middle lobe. In the absence of risk factors, no further workup is warranted. In a patient with risk factors, a follow-up chest CT in 12 months may be considered. [facility]
--- NOTE | 2019-04-17 04:13 | CT Report ---
Reason: dyspnea, stridor Procedure Date: 04/17/2019 Accession Number: [id number] / [id number] Procedure: CT - SOFT TISSUE NECK W CPT Code: Final Report FULL RESULT: EXAM: CT SOFT TISSUE NECK WITH CONTRAST. EXAM DATE: 04/17/2019 03:02 AM. HISTORY: Dyspnea, stridor. COMPARISONS: None. TECHNIQUE: Routine soft tissue neck CT protocol with contrast. Reconstructions: Coronal and sagittal. IV contrast: OPTI 320 100ML. In accordance with CT protocol optimization, one or more of the following dose reduction techniques were utilized for this exam: automated exposure control, adjustment of mA and/or KV based on patient size, or use of iterative reconstructive technique. FINDINGS: There is no evidence of a mass lesion, abscess, or lymphadenopathy in the neck. The nasopharynx, oropharynx, and hypopharynx are unremarkable. Oral cavity is partially obscured by dental artifact but otherwise unremarkable. Floor of mouth is unremarkable. Major salivary glands appear normal. Laryngeal structures are unremarkable. Subglottic airway is widely patent. Thyroid gland appears normal. Partially visualized intracranial structures and orbits are unremarkable. Visualized sinuses and mastoid air cells are clear. Visualized lung apices are clear. Moderate degenerative change is noted in the lower cervical spine. IMPRESSION: 1. Unremarkable CT of neck soft tissues. 2. No evidence of a mass lesion, abscess, or lymphadenopathy in the neck. 3. Upper aerodigestive tract appears unremarkable. No evidence of airway compromise in the neck. [facility]
[2019-04-17] MEDS ORDERED: ALBUTEROL NEB 2.5 MG/3 ML INH STA (04:35)
[2019-04-17] MEDS ORDERED: DEXAMETHASONE 10 MG/ML VIAL IVP STA (05:01)
[2019-04-17 06:09] VITALS: BP 135/70
== END 2019-04-17 06:09 | disposition home or self-care (01) ==
LOC: ED 23:32
DX: R06.1 Stridor (principal); R06.00 Dyspnea, unspecified; R91.1 Solitary pulmonary nodule; E11.9 Type 2 diabetes mellitus without complications; J06.9 Acute upper respiratory infection, unspecified; R06.2 Wheezing; Z79.84 Long term (current) use of oral hypoglycemic drugs; G47.30 Sleep apnea, unspecified
CPT/HCPCS: 36415; 70491; 71045; 71260; 80048; 80053; 83690; 85025; 94640; 96374; 99284; J7512; Q9967

== ENCOUNTER 2019-04-22 11:01 | Outpatient (CLI) | payer MEDICARE, OTHER | END 2019-04-22 11:02 | disposition home or self-care (01) | LOC: DI 11:01 | PROVIDERS: ATTEND Family Medicine | DX: I25.10 Atherosclerotic heart disease of native coronary artery without angina pectoris (principal); I51.7 Cardiomegaly | CPT/HCPCS: 93306 ==

== ENCOUNTER 2019-05-07 13:00 | Outpatient (CLI) | payer MEDICARE, OTHER ==
--- NOTE | 2019-05-07 14:06 | CT Report ---
Reason: POSTNASAL DRIP, CHRONIC SINUSITIS Procedure Date: 05/07/2019 Accession Number: [id number] / [id number] Procedure: CT - Sinuses CPT Code: Final Report FULL RESULT: EXAM: CT SINUS EXAM DATE: 05/07/2019 01:33 PM. HISTORY: postnasal drip, chronic sinusitis. COMPARISONS: None. TECHNIQUE: Bone algorithm CT imaging performed through the sinuses. Iodinated IV contrast: None. Reconstructions: Multiplanar reformats. In accordance with CT protocol optimization, one or more of the following dose reduction techniques were utilized for this exam: automated exposure control, adjustment of mA and/or KV based on patient size, or use of iterative reconstructive technique. FINDINGS: Mastoid air cells are well aerated. Mucosal thickening versus sessile retention cyst/polyp formation is seen in each sphenoid sinus. Paranasal sinuses are otherwise clear. Nasal septum is minimally bowed to the right posteriorly. Nasal cavity is patent. The osteomeatal unit is patent bilaterally. IMPRESSION: 1. Mucosal thickening versus sessile retention cyst/polyp formation is seen in each sphenoid sinus. [facility]
--- NOTE | 2019-05-07 15:33 | XRAY Report ---
Reason: DYSPHONIA Procedure Date: 05/07/2019 Accession Number: [id number] / [id number] Procedure: FL - Esophogram CPT Code: Final Report FULL RESULT: EXAM: BARIUM ESOPHAGRAM EXAM DATE: 05/07/2019 02:52 PM. CLINICAL HISTORY: DYSPHONIA. COMPARISONS: None. TECHNIQUE: Routine double contrast esophagram. Fluoroscopy Time: 1 minute 18 seconds. Number of Images: 26. FINDINGS: Swallowing Mechanism: Normal. No tracheal aspiration or penetration. Esophageal Motility: Disorganized peristaltic stripping wave ending in diffuse esophageal spasm. Mucosa: Normal. No ulcerations or masses. Gastroesophageal Junction: There is a small hiatal hernia and spontaneous reflux. Other: None. IMPRESSION: Spontaneous reflux with diffuse esophageal spasm in the setting of small hiatal hernia. [facility]
== END 2019-05-07 13:01 | disposition home or self-care (01) ==
LOC: DI 13:00
PROVIDERS: ATTEND Otolaryngology
DX: J32.8 Other chronic sinusitis (principal); K21.9 Gastro-esophageal reflux disease without esophagitis; K44.9 Diaphragmatic hernia without obstruction or gangrene; K22.4 Dyskinesia of esophagus; R49.0 Dysphonia
CPT/HCPCS: 70486; 74220

== ENCOUNTER 2019-07-02 08:00 | Outpatient (CLI) | payer MEDICARE, OTHER ==
[2019-07-02 17:32] LABS: BASOPHILS # (AUTO) 0.1 10^3/uL (0.0-0.1); BASOPHILS % (AUTO) 0.6 %; EOSINOPHILS # (AUTO) 0.2 10^3/uL (0.0-0.7); HGB - HEMOGLOBIN 14.2 g/dL (12.0-16.0); LYMPHOCYTES # (AUTO) 1.8 10^3/uL (1.5-3.5); LYMPHOCYTES % (AUTO) 19.8 %; MEAN CORPUSCULAR HEMOGLOBIN 29.8 pg (27.0-31.0); MEAN CORPUSCULAR HGB CONC 32.3 g/dL (32.0-36.0); MEAN CORPUSCULAR VOLUME 92.2 fL (81.0-99.0); MEAN PLATELET VOLUME 9.8 fL (7.9-10.8); MONOCYTES # (AUTO) 0.8 10^3/uL (0.0-1.0); NEUTROPHILS # (AUTO) 6.1 10^3/uL (1.5-6.6); PLT - PLATELET COUNT 316 10^3/uL (130-450); RED BLOOD COUNT 4.76 10^6/uL (4.20-5.40); RED CELL DISTRIBUTION WIDTH 13.3 % (12.0-15.0)
[2019-07-02 18:28] LABS: ALBUMIN 4.2 g/dL (3.2-5.5); ALBUMIN/GLOBULIN RATIO 1.2 (1.0-2.2); ALKALINE PHOSPHATASE 102 IU/L (42-121); ALT ALANINE AMINOTRANSFERASE 23 IU/L (10-60); AST ASPARTATE AMINOTRANSFERASE 20 IU/L (10-42); BUN - BLOOD UREA NITROGEN 15 mg/dL (6-20); CARBON DIOXIDE - CO2 23 mmol/L (21-32); CHLORIDE 104 mmol/L (101-111); CHOL/HDL RATIO 4.6 (<4.4); CHOLESTEROL 223 mg/dL; CREATININE 0.6 mg/dL (0.4-1.0); CREATININE,URINE 159.3 mg/dL; GLUCOSE 161 mg/dL (70-100); HB2 TOTAL 14.5 g/dL; HDL CHOLESTEROL 49 mg/dL; HEMOGLOBIN A1C 0.95 g/dL; HEMOGLOBIN A1C % 8.1 % (4.6-6.2); LDL CHOLESTEROL,CALCULATED 145 mg/dL; MICROALBUM/CREATININE RATIO,UR 175.1 ug/mg (<30.0); MICROALBUMIN,URINE 27.9 mg/dL (0-300.0); SODIUM 137 mmol/L (135-145); TOTAL PROTEIN 7.6 g/dL (6.7-8.2); VLDL CHOLESTEROL 29 mg/dL
== END 2019-07-02 23:59 | disposition home or self-care (01) ==
LOC: LAB.WCP 08:00
PROVIDERS: ATTEND Family Medicine
DX: E11.9 Type 2 diabetes mellitus without complications (principal)
CPT/HCPCS: 36415; 80053; 80061; 82043; 82570; 83036; 83721; 85025

== ENCOUNTER 2020-02-22 08:00 | Outpatient (CLI) | payer MEDICARE, OTHER ==
[2020-02-22 17:49] LABS: BASOPHILS % (AUTO) 0.3 %; EOSINOPHILS # (AUTO) 0.1 10^3/uL (0.0-0.7); EOSINOPHILS % (AUTO) 1.6 %; LYMPHOCYTES # (AUTO) 2.1 10^3/uL (1.5-3.5); LYMPHOCYTES % (AUTO) 23.2 %; MEAN CORPUSCULAR HEMOGLOBIN 29.7 pg (27.0-31.0); MEAN CORPUSCULAR HGB CONC 32.1 g/dL (32.0-36.0); MEAN CORPUSCULAR VOLUME 92.6 fL (81.0-99.0); MEAN PLATELET VOLUME 10.3 fL (7.9-10.8); MONOCYTES # (AUTO) 0.8 10^3/uL (0.0-1.0); MONOCYTES % (AUTO) 8.3 %; PLT - PLATELET COUNT 301 10^3/uL (130-450); RED BLOOD COUNT 4.71 10^6/uL (4.20-5.40); RED CELL DISTRIBUTION WIDTH 13.8 % (12.0-15.0)
[2020-02-22 18:07] LABS: CREATININE,URINE 106.1 mg/dL; MICROALBUM/CREATININE RATIO,UR 74.5 ug/mg (<30.0); MICROALBUMIN,URINE 7.9 mg/dL (0-300.0)
[2020-02-22 18:16] LABS: ALBUMIN 3.9 g/dL (3.2-5.5); ALBUMIN/GLOBULIN RATIO 1.1 (1.0-2.2); ALKALINE PHOSPHATASE 118 IU/L (42-121); ALT ALANINE AMINOTRANSFERASE 24 IU/L (10-60); AST ASPARTATE AMINOTRANSFERASE 23 IU/L (10-42); BUN - BLOOD UREA NITROGEN 12 mg/dL (6-20); CARBON DIOXIDE - CO2 24 mmol/L (21-32); CHLORIDE 103 mmol/L (101-111); CHOL/HDL RATIO 3.3 (<4.4); CHOLESTEROL 157 mg/dL; CREATININE 0.4 mg/dL (0.4-1.0); GLUCOSE 188 mg/dL (70-100); HDL CHOLESTEROL 47 mg/dL; LDL CHOLESTEROL,CALCULATED 86 mg/dL; LDL/HDL RATIO 1.8 (<4.4); SODIUM 137 mmol/L (135-145); TOTAL PROTEIN 7.3 g/dL (6.7-8.2); VLDL CHOLESTEROL 24 mg/dL
== END 2020-02-22 23:59 | disposition home or self-care (01) ==
LOC: LAB.WCP 08:00
PROVIDERS: ATTEND Family Medicine
DX: E11.9 Type 2 diabetes mellitus without complications (principal)
CPT/HCPCS: 36415; 80053; 80061; 82043; 82570; 83036; 83721; 84443; 85025

== ENCOUNTER 2020-05-16 07:00 | Outpatient (CLI) | payer MEDICARE, OTHER ==
--- NOTE | 2020-05-16 20:43 | XRAY Report ---
PROCEDURE: Knee 3 View RT INDICATIONS: PX IN R KNEE TECHNIQUE: 3 views of the right knee(s) were acquired. COMPARISON: None. FINDINGS: Bones: No fractures or dislocations. Mild to moderate tricompartmental osteoarthritis is seen more prominent in medial femoral tibial compartment. No suspicious bony lesions. Soft tissues: No joint effusion. No suspicious soft tissue calcifications. IMPRESSION: Mild to moderate tricompartmental osteoarthritis more prominent in medial femoral tibial compartment. No right knee fracture or dislocation. No significant joint effusion. Reviewed by: Norman Campbell MD on 05/16/2020 8:42 PM PST Approved by: Norman Campbell MD on 05/16/2020 8:42 PM PST Station ID: [id number]
== END 2020-05-16 23:59 | disposition home or self-care (01) ==
LOC: DI.N 07:00
PROVIDERS: ATTEND Nurse Practitioner
DX: M17.11 Unilateral primary osteoarthritis, right knee (principal)

== ENCOUNTER 2020-05-23 08:00 | Outpatient (CLI) | payer MEDICARE, OTHER ==
[2020-05-23 18:02] LABS: CREATININE 0.5 mg/dL (0.4-1.0)
[2020-05-23 18:16] LABS: CREATININE,URINE 92.2 mg/dL; MICROALBUM/CREATININE RATIO,UR 201.7 ug/mg (<30.0); MICROALBUMIN,URINE 18.6 mg/dL (0-300.0)
[2020-05-23 20:18] LABS: HEMOGLOBIN A1c% 10.2 % (4.27-6.07)
== END 2020-05-23 23:59 | disposition home or self-care (01) ==
LOC: LAB.WCP 08:00
PROVIDERS: ATTEND Family Medicine
DX: E11.8 Type 2 diabetes mellitus with unspecified complications (principal)
CPT/HCPCS: 36415; 80048; 82043; 82570; 83036

== ENCOUNTER 2020-08-28 08:00 | Outpatient (CLI) | payer MEDICARE, OTHER ==
[2020-08-28 12:31] LABS: THYROID STIMULATING HORMONE 4.78 uIU/mL (0.34-5.60)
[2020-08-28 12:33] LABS: FREE T3 3.7 pg/mL (2.5-3.9)
[2020-08-28 12:34] LABS: FREE T4 (FREE THYROXINE) 0.7 ng/dL (0.58-1.64)
[2020-08-28 12:35] LABS: ALBUMIN 4.2 g/dL (3.2-5.5); ALBUMIN/GLOBULIN RATIO 1.3 (1.0-2.2); ALKALINE PHOSPHATASE 127 IU/L (42-121); ALT ALANINE AMINOTRANSFERASE 19 IU/L (10-60); AST ASPARTATE AMINOTRANSFERASE 22 IU/L (10-42); BILIRUBIN,TOTAL 0.8 mg/dL (0.2-1.0); BUN - BLOOD UREA NITROGEN 12 mg/dL (6-20); CARBON DIOXIDE - CO2 26 mmol/L (21-32); CHLORIDE 100 mmol/L (101-111); CHOL/HDL RATIO 5.2 (<4.4); CHOLESTEROL 234 mg/dL; CREATININE 0.6 mg/dL (0.4-1.0); GFR - MDRD 99 (>89); GLUCOSE 158 mg/dL (70-100); HDL CHOLESTEROL 45 mg/dL; LDL CHOLESTEROL,CALCULATED 155 mg/dL; LDL/HDL RATIO 3.4 (<4.4); SODIUM 134 mmol/L (135-145); TOTAL PROTEIN 7.5 g/dL (6.7-8.2); TRIGLYCERIDES 170 mg/dL; VLDL CHOLESTEROL 34 mg/dL
[2020-08-28 13:22] LABS: ESTIMATED AVERAGE GLUCOSE 214 mg/dL (70-100); HEMOGLOBIN A1c% 9.1 % (4.27-6.07)
== END 2020-08-28 23:59 | disposition home or self-care (01) ==
LOC: LAB.WCP 08:00
PROVIDERS: ATTEND Physician Assistant Medical
DX: E11.8 Type 2 diabetes mellitus with unspecified complications (principal)
CPT/HCPCS: 36415; 80053; 80061; 83036; 83721; 84439; 84443; 84481

== ENCOUNTER 2020-12-04 12:57 | Outpatient (CLI) | payer MEDICARE, OTHER ==
[2020-12-04 17:57] LABS: BASOPHILS # (AUTO) 0.1 10^3/uL (0.0-0.1); BASOPHILS % (AUTO) 0.6 %; EOSINOPHILS # (AUTO) 0.2 10^3/uL (0.0-0.7); EOSINOPHILS % (AUTO) 1.6 %; HCT - HEMATOCRIT 46.5 % (37.0-47.0); LYMPHOCYTES # (AUTO) 1.9 10^3/uL (1.5-3.5); LYMPHOCYTES % (AUTO) 17.3 %; MEAN CORPUSCULAR HEMOGLOBIN 30.1 pg (27.0-31.0); MEAN CORPUSCULAR HGB CONC 32.3 g/dL (32.0-36.0); MEAN CORPUSCULAR VOLUME 93.4 fL (81.0-99.0); MEAN PLATELET VOLUME 9.9 fL (7.9-10.8); MONOCYTES # (AUTO) 0.9 10^3/uL (0.0-1.0); MONOCYTES % (AUTO) 8.5 %; NEUTROPHILS # (AUTO) 7.7 10^3/uL (1.5-6.6); NEUTROPHILS % (AUTO) 71.3 %; PLT - PLATELET COUNT 339 10^3/uL (130-450); RED BLOOD COUNT 4.98 10^6/uL (4.20-5.40); RED CELL DISTRIBUTION WIDTH 13.3 % (12.0-15.0); WHITE BLOOD COUNT 10.8 x10^3/uL (4.8-10.8)
[2020-12-04 18:17] LABS: ALBUMIN 3.9 g/dL (3.2-5.5); ALBUMIN/GLOBULIN RATIO 1.1 (1.0-2.2); ALKALINE PHOSPHATASE 138 IU/L (42-121); ALT ALANINE AMINOTRANSFERASE 21 IU/L (10-60); AST ASPARTATE AMINOTRANSFERASE 23 IU/L (10-42); BUN - BLOOD UREA NITROGEN 12 mg/dL (6-20); CALCIUM 9.2 mg/dL (8.5-10.3); CARBON DIOXIDE - CO2 25 mmol/L (21-32); CHLORIDE 102 mmol/L (101-111); CHOL/HDL RATIO 4.5 (<4.4); CHOLESTEROL 204 mg/dL; CREATININE 0.7 mg/dL (0.4-1.0); GFR - MDRD 83 (>89); GLUCOSE 202 mg/dL (70-100); HDL CHOLESTEROL 45 mg/dL; LDL CHOLESTEROL,CALCULATED 126 mg/dL; LDL/HDL RATIO 2.8 (<4.4); POTASSIUM 4.2 mmol/L (3.5-5.0); SODIUM 136 mmol/L (135-145); TOTAL PROTEIN 7.6 g/dL (6.7-8.2); TRIGLYCERIDES 163 mg/dL; VLDL CHOLESTEROL 33 mg/dL
[2020-12-04 18:25] LABS: THYROID STIMULATING HORMONE 2.48 uIU/mL (0.34-5.60)
[2020-12-04 18:26] LABS: CREATININE,URINE 106.3 mg/dL; MICROALBUMIN,URINE 40.5 mg/dL (0-300.0)
[2020-12-04 20:08] LABS: ESTIMATED AVERAGE GLUCOSE 217 mg/dL (70-100); HEMOGLOBIN A1c% 9.2 % (4.27-6.07)
== END 2020-12-04 23:59 | disposition home or self-care (01) ==
LOC: LAB.WCP 12:57
PROVIDERS: ATTEND Family Medicine
DX: I10 Essential (primary) hypertension (principal); E78.5 Hyperlipidemia, unspecified; E11.8 Type 2 diabetes mellitus with unspecified complications
CPT/HCPCS: 36415; 80053; 80061; 82043; 82570; 83036; 83721; 84443; 85025

== ENCOUNTER 2021-03-16 13:35 | Outpatient (CLI) | payer MEDICARE, OTHER ==
[2021-03-16 18:25] LABS: ALBUMIN/GLOBULIN RATIO 1.1 (1.0-2.2); ALKALINE PHOSPHATASE 138 IU/L (42-121); ALT ALANINE AMINOTRANSFERASE 39 IU/L (10-60); AST ASPARTATE AMINOTRANSFERASE 28 IU/L (10-42); BILIRUBIN,TOTAL 0.9 mg/dL (0.2-1.0); BUN - BLOOD UREA NITROGEN 10 mg/dL (6-20); CALCIUM 8.9 mg/dL (8.5-10.3); CARBON DIOXIDE - CO2 26 mmol/L (21-32); CHLORIDE 98 mmol/L (101-111); CHOLESTEROL 216 mg/dL; CREATININE 0.5 mg/dL (0.4-1.0); GFR - MDRD 122 (>89); GLUCOSE 175 mg/dL (70-100); HDL CHOLESTEROL 43 mg/dL; LDL CHOLESTEROL,CALCULATED 130 mg/dL; POTASSIUM 4.2 mmol/L (3.5-5.0); SODIUM 134 mmol/L (135-145); TOTAL PROTEIN 7.5 g/dL (6.7-8.2); TRIGLYCERIDES 216 mg/dL; VLDL CHOLESTEROL 43 mg/dL
[2021-03-16 20:20] LABS: ESTIMATED AVERAGE GLUCOSE 189 mg/dL (70-100); HEMOGLOBIN A1c% 8.2 % (4.27-6.07)
== END 2021-03-16 23:59 | disposition home or self-care (01) ==
LOC: LAB.WCP 13:35
PROVIDERS: ATTEND Family Medicine
DX: E11.8 Type 2 diabetes mellitus with unspecified complications (principal)
CPT/HCPCS: 36415; 80053; 80061; 83036; 83721

== ENCOUNTER 2021-04-05 07:00 | Outpatient (CLI) | payer MEDICARE, OTHER ==
[2021-04-05] MEDS ORDERED: ALBUTEROL 1 PUFF INH STA (14:46)
== END 2021-04-05 23:59 | disposition home or self-care (01) ==
LOC: RT 07:00
PROVIDERS: ATTEND Family Medicine
DX: R06.02 Shortness of breath (principal)
CPT/HCPCS: 94060

== ENCOUNTER 2021-04-05 13:09 | Outpatient (CLI) | payer MEDICARE, OTHER ==
--- NOTE | 2021-04-05 15:56 | CT Report ---
PROCEDURE: CHEST WO INDICATIONS: SHORTNESS OF BREATH TECHNIQUE: Noncontrast 1mm axial images were acquired from the pulmonary apices to the posterior costophrenic an gles. Axial 5 mm soft tissue kernel reconstructions were performed as well as 8 mm axial MIP and cor onal and sagittal 5 mm reformations. For radiation dose reduction, the following was used: automate d exposure control, adjustment of mA and/or kV according to patient size. COMPARISON: 04/17/2019 FINDINGS: Image quality: Excellent. Lungs and pleura: Subtle bibasilar groundglass opacities are no longer seen. There are persistent sm all areas of air trapping throughout both lungs. No emphysematous changes. A subpleural right middle lobe nodule measuring about 4 mm is stable. No new nodules. No dense consolidation, pleural effusion, or pneumothorax. Central and peripheral airways are patent and of normal caliber. Mediastinum: Heart size is normal. Moderate coronary artery calcification. No pericardial effusion. No mediastinal adenopathy by size criteria. Thoracic aorta and central pulmonary arteries are norm al in size. Esophagus is normal in caliber. Small hiatal hernia. Bones and chest wall: No suspicious bony lesions. Multilevel degenerative endplate spurs throughout the thoracic spine. No vertebral body compression fractures. No axillary or supraclavicular adenopa thy by size criteria. The thyroid is normal in size and there are no incidental findings. Abdomen: Marked hepatic steatosis. Mildly prominent josh hepatis lymph node measuring 1.5 cm in víctor rt axis, . Visualized upper abdominal solid organs and bowel loops appear otherwise normal in the absence of contrast. IMPRESSION: 1. Persistent changes of mild air trapping throughout both lungs, but no new nodules, consolidations, or emphysematous changes. 2. Stable right middle lobe lung nodule. Follow-up in one year recommended. 3. Interval resolution of mild bibasilar groundglass opacities. 4. Moderate coronary artery atherosclerotic calcification. 5. Marked hepatic steatosis seen previously. There is also stable josh hepatis lymph node, potential ly reactive. Reviewed by: Celia Leavitt MD on 04/05/2021 3:55 PM PST Approved by: Celia Leavitt MD on 04/05/2021 3:55 PM PST Station ID: [id number]
== END 2021-04-05 13:10 | disposition home or self-care (01) ==
LOC: DI 13:09
PROVIDERS: ATTEND Family Medicine
DX: R06.02 Shortness of breath (principal); R91.1 Solitary pulmonary nodule; I25.10 Atherosclerotic heart disease of native coronary artery without angina pectoris; K76.0 Fatty (change of) liver, not elsewhere classified; J98.8 Other specified respiratory disorders

== ENCOUNTER 2021-06-13 13:45 | Outpatient (CLI) | payer MEDICARE, OTHER ==
[2021-06-13 18:00] LABS: BASOPHILS % (AUTO) 0.4 %; EOSINOPHILS # (AUTO) 0.2 10^3/uL (0.0-0.7); EOSINOPHILS % (AUTO) 1.7 %; HCT - HEMATOCRIT 41.8 % (37.0-47.0); HGB - HEMOGLOBIN 14.1 g/dL (12.0-16.0); LYMPHOCYTES # (AUTO) 2.1 10^3/uL (1.5-3.5); LYMPHOCYTES % (AUTO) 20.3 %; MEAN CORPUSCULAR HEMOGLOBIN 31.2 pg (27.0-31.0); MEAN CORPUSCULAR HGB CONC 33.7 g/dL (32.0-36.0); MEAN CORPUSCULAR VOLUME 92.5 fL (81.0-99.0); MEAN PLATELET VOLUME 10.1 fL (7.9-10.8); MONOCYTES # (AUTO) 0.9 10^3/uL (0.0-1.0); MONOCYTES % (AUTO) 8.6 %; NEUTROPHILS # (AUTO) 7.1 10^3/uL (1.5-6.6); NEUTROPHILS % (AUTO) 68.3 %; PLT - PLATELET COUNT 333 10^3/uL (130-450); RED BLOOD COUNT 4.52 10^6/uL (4.20-5.40); RED CELL DISTRIBUTION WIDTH 13.9 % (12.0-15.0); WHITE BLOOD COUNT 10.4 x10^3/uL (4.8-10.8)
[2021-06-13 18:29] LABS: CREATININE,URINE 148.1 mg/dL; MICROALBUM/CREATININE RATIO,UR 106.7 ug/mg (<30.0); MICROALBUMIN,URINE 15.8 mg/dL (0-300.0)
[2021-06-13 21:17] LABS: ESTIMATED AVERAGE GLUCOSE 200 mg/dL (70-100); HEMOGLOBIN A1c% 8.6 % (4.27-6.07)
[2021-06-13 21:35] LABS: ALBUMIN/GLOBULIN RATIO 1.2 (1.0-2.2); ALKALINE PHOSPHATASE 151 IU/L (42-121); ALT ALANINE AMINOTRANSFERASE 29 IU/L (10-60); AST ASPARTATE AMINOTRANSFERASE 25 IU/L (10-42); BILIRUBIN,TOTAL 0.8 mg/dL (0.2-1.0); BUN - BLOOD UREA NITROGEN 12 mg/dL (6-20); CALCIUM 9.3 mg/dL (8.5-10.3); CARBON DIOXIDE - CO2 25 mmol/L (21-32); CHLORIDE 103 mmol/L (101-111); CHOL/HDL RATIO 5.1 (<4.4); CHOLESTEROL 228 mg/dL; CREATININE 0.5 mg/dL (0.4-1.0); GFR - MDRD 122 (>89); GLUCOSE 165 mg/dL (70-100); HDL CHOLESTEROL 45 mg/dL; LDL CHOLESTEROL,CALCULATED 158 mg/dL; LDL/HDL RATIO 3.5 (<4.4); POTASSIUM 4.4 mmol/L (3.5-5.0); SODIUM 137 mmol/L (135-145); TOTAL PROTEIN 7.3 g/dL (6.7-8.2); TRIGLYCERIDES 123 mg/dL; VLDL CHOLESTEROL 25 mg/dL
== END 2021-06-13 13:46 | disposition home or self-care (01) ==
LOC: LAB.N 13:45
PROVIDERS: ATTEND Family Medicine
DX: E11.8 Type 2 diabetes mellitus with unspecified complications (principal); Z79.4 Long term (current) use of insulin; I25.10 Atherosclerotic heart disease of native coronary artery without angina pectoris; E78.5 Hyperlipidemia, unspecified
CPT/HCPCS: 36415; 80053; 80061; 82043; 82570; 83036; 83721; 85025

== ENCOUNTER 2021-09-27 10:26 | Outpatient (CLI) | payer MEDICARE, OTHER | END 2021-09-27 10:27 | disposition home or self-care (01) | LOC: DI 10:26 | PROVIDERS: ATTEND Nurse Practitioner Family | DX: R01.1 Cardiac murmur, unspecified (principal) | CPT/HCPCS: 93306 ==

== ENCOUNTER 2021-10-12 14:06 | Outpatient (CLI) | payer MEDICARE, OTHER ==
[2021-10-12 17:57] LABS: BASOPHILS # (AUTO) 0.1 10^3/uL (0.0-0.1); BASOPHILS % (AUTO) 0.4 %; EOSINOPHILS # (AUTO) 0.2 10^3/uL (0.0-0.7); EOSINOPHILS % (AUTO) 1.9 %; HCT - HEMATOCRIT 44.7 % (37.0-47.0); HGB - HEMOGLOBIN 14.7 g/dL (12.0-16.0); LYMPHOCYTES % (AUTO) 17.7 %; MEAN CORPUSCULAR HEMOGLOBIN 30.4 pg (27.0-31.0); MEAN CORPUSCULAR HGB CONC 32.9 g/dL (32.0-36.0); MEAN CORPUSCULAR VOLUME 92.4 fL (81.0-99.0); MEAN PLATELET VOLUME 10.2 fL (7.9-10.8); MONOCYTES # (AUTO) 1.1 10^3/uL (0.0-1.0); MONOCYTES % (AUTO) 9.4 %; NEUTROPHILS # (AUTO) 7.8 10^3/uL (1.5-6.6); PLT - PLATELET COUNT 332 10^3/uL (130-450); RED BLOOD COUNT 4.84 10^6/uL (4.20-5.40); RED CELL DISTRIBUTION WIDTH 13.9 % (12.0-15.0); WHITE BLOOD COUNT 11.2 x10^3/uL (4.8-10.8)
[2021-10-12 18:04] LABS: ALBUMIN 3.8 g/dL (3.2-5.5); ALBUMIN/GLOBULIN RATIO 0.9 (1.0-2.2); ALKALINE PHOSPHATASE 144 IU/L (42-121); ALT ALANINE AMINOTRANSFERASE 21 IU/L (10-60); AST ASPARTATE AMINOTRANSFERASE 23 IU/L (10-42); BILIRUBIN,TOTAL 0.9 mg/dL (0.2-1.0); BUN - BLOOD UREA NITROGEN 12 mg/dL (6-20); CALCIUM 9.5 mg/dL (8.5-10.3); CARBON DIOXIDE - CO2 26 mmol/L (21-32); CHLORIDE 100 mmol/L (101-111); CHOL/HDL RATIO 5.1 (<4.4); CHOLESTEROL 215 mg/dL; CREATININE 0.7 mg/dL (0.4-1.0); GFR - MDRD 83 (>89); GLUCOSE 191 mg/dL (70-100); HDL CHOLESTEROL 42 mg/dL; LDL CHOLESTEROL,CALCULATED 141 mg/dL; LDL/HDL RATIO 3.4 (<4.4); POTASSIUM 4.4 mmol/L (3.5-5.0); SODIUM 137 mmol/L (135-145); TOTAL PROTEIN 7.9 g/dL (6.7-8.2); TRIGLYCERIDES 158 mg/dL; VLDL CHOLESTEROL 32 mg/dL
[2021-10-12 18:14] LABS: THYROID STIMULATING HORMONE 2.66 uIU/mL (0.34-5.60)
[2021-10-12 20:24] LABS: ESTIMATED AVERAGE GLUCOSE 197 mg/dL (70-100); HEMOGLOBIN A1c% 8.5 % (4.27-6.07)
== END 2021-10-12 14:07 | disposition home or self-care (01) ==
LOC: LAB.N 14:06
PROVIDERS: ATTEND Nurse Practitioner Family
DX: I10 Essential (primary) hypertension (principal); E11.8 Type 2 diabetes mellitus with unspecified complications; E78.5 Hyperlipidemia, unspecified; E55.9 Vitamin D deficiency, unspecified
CPT/HCPCS: 36415; 80053; 80061; 82306; 83036; 83721; 84443; 85025

== ENCOUNTER 2021-10-25 10:00 | Outpatient (CLI) | payer MEDICARE, OTHER ==
--- NOTE | 2021-11-06 09:10 | Mammography Report ---
BILATERAL DIGITAL SCREENING MAMMOGRAM 3D/2D: 10/25/2021 CLINICAL: Routine screening. Comparison is made to exams dated: 04/03/2015 mammogram and 05/10/2016 mammogram - [facility]. There are scattered fibroglandular elements in both breasts. There are benign vascular calcifications in both breasts. No significant masses, calcifications, or other findings are seen in either breast. There has been no significant interval change. IMPRESSION: BENIGN There is no mammographic evidence of malignancy. A 1 year screening mammogram is recommended. Based on the Tyrer Cuzick model (a risk assessment model) the patients lifetime risk is 8.3% and her 10 year risk is 5.3%. According to the ACR, ACS, and NCCN guidelines, an annual breast MRI exam brody g with mammogram is recommended if the patients lifetime risk is 20% or greater. This exam was interpreted at Station ID: [id number]. NOTE: For mammograms, a report in lay terms will be sent to the patient. Approximately 15% of breast malignancies will not be visualized mammographically. In the management of a palpable breast mass, a negative mammogram must not discourage biopsy of a clinically suspicious lesion. Electronically Signed By: Carson Mcmullen M.D. slc/penrad:11/06/2021 08:03:13 ACR BI-RADS Category 2: Benign Finding(s) 3342F PARENCHYMAL PATTERN: (A) - The breast(s) demonstrate(s) scattered fibroglandular densities. BI-RADS CATEGORY: (2) - 2 RECOMMENDATION: (ANNUAL) - Recommend routine annual screening mammography. [id number] 1 year screening LATERALITY: (B)
== END 2021-10-25 10:01 | disposition home or self-care (01) ==
LOC: DI 10:00
PROVIDERS: ATTEND Nurse Practitioner Family
DX: Z12.31 Encounter for screening mammogram for malignant neoplasm of breast (principal)

== ENCOUNTER 2022-01-16 14:46 | Outpatient (CLI) | payer MEDICARE, OTHER ==
[2022-01-16 18:35] LABS: CALCIUM 9.1 mg/dL (8.5-10.3); CREATININE 0.6 mg/dL (0.4-1.0); POTASSIUM 4.4 mmol/L (3.5-5.0)
[2022-01-16 21:17] LABS: ESTIMATED AVERAGE GLUCOSE 192 mg/dL (70-100); HEMOGLOBIN A1c% 8.3 % (4.27-6.07)
== END 2022-01-16 14:47 | disposition home or self-care (01) ==
LOC: LAB.N 14:46
PROVIDERS: ATTEND Nurse Practitioner Family
DX: E11.8 Type 2 diabetes mellitus with unspecified complications (principal)
CPT/HCPCS: 36415; 80048; 83036

== ENCOUNTER 2022-01-22 12:55 | Emergency (ER) | payer MEDICARE, OTHER ==
--- OUTSIDE RECORDS SUMMARY | 2022-01-22 13:29 | EXTERNAL MEDICAL SUMMARY RPT | Continuity of Care Document ---
:1950 Author Organization [facility] Address [address] [place] [address] Phone Allergies No information. Encounters No information. Functional Status No information. Immunizations No information. Medications No information. Problems No information. Procedures No information. Results/Labs test date author facility value unit interpret ation Result panel 1 (unknown) (no (unknown) (unknown) (no value) (units (unk nown) date) unknown) (unknown) (no (unknown) (unknown) [address] [place] [address] (units (unknown) date) unknown) (unknown) (no (unknown) (unknown) [place], [place] (units ( unknown) date) [id number] unknown) (unknown) (no (unknown) (unknown) [facility] (units (unknown) date) unknown) (unknown) (no (unknown) (unknown) [facility] (units (unknown) date) Report unknown) (unknown) (no (unknown) (unknown) Signed (units (unkno wn) date) unknown) (unknown) (no (unknown) (unknown) (no value) (units (unk nown) date) unknown) (unknown) (no (unknown) (unknown) 10/26/21 (units (unkno wn) date) unknown) (unknown) (no (unknown) (unknown) 92% of maximum (units (unknown) date) predicted heart unknown) rate achieved. Appropriate BP response to (unknown) (no (unknown) (unknown) Angina during the (units (unknown) date) study. unknown) (unknown) (no (unknown) (unknown) Approved by: (units (u nknown) date) Meg Addison MD unknown) on 10/29/2021 at 13:37 (unknown) (no (unknown) (unknown) COMPARISON: None. (units (unknown) date) unknown) (unknown) (no (unknown) (unknown) Dictated by: (units (u nknown) date) Meg Addison MD unknown) on 10/29/2021 at 13:35 (unknown) (no (unknown) (unknown) FINDINGS: The (units ( unknown) date) patient exercised unknown) for 3 minutes and 10 seconds reaching 4.6 (unknown) (no (unknown) (unknown) IMPRESSION: Low (units (unknown) date) risk, normal unknown) treadmill ECG only stress test with moderately (unknown) (no (unknown) (unknown) INDICATIONS: (units (u nknown) date) Atherosclerotic unknown) heart disease (unknown) (no (unknown) (unknown) No ST changes (units ( unknown) date) with exercise. unknown) Occasional PACs and PVCs during the study. (unknown) (no (unknown) (unknown) exercise (units (unkno wn) date) tolerance (HUI unknown) +43%). (unknown) (no (unknown) (unknown) [id number] (units (unkno wn) date) unknown) (unknown) (no (unknown) (unknown) Accession Number: (units (unknown) date) [id number] unknown) (unknown) (no (unknown) (unknown) Age/Sex: 70 / F (units (unknown) date) Date of Service: unknown) (unknown) (no (unknown) (unknown) : 1950 (units (unknown) date) Acct:[id number] unknown) (unknown) (no (unknown) (unknown) Loc: [facility] (units (unkno wn) date) unknown) (unknown) (no (unknown) (unknown) METs, HUI 43%. (units (unknown) date) unknown) (unknown) (no (unknown) (unknown) Ordering (units ( wn) date) Provider: unknown) Meg Addison MD (unknown) (no (unknown) (unknown) PROCEDURE: NM (units ( unknown) date) EXERCISE TREADMILL unknown) NON NUC (unknown) (no (unknown) (unknown) Patient: (units (o wn) date) Rosemarie Stephens MR#: unknown) [id number] (unknown) (no (unknown) (unknown) Procedure: (units (unk nown) date) Exercise treadmill unknown) NON NUC (unknown) (no (unknown) (unknown) exercise. No (units (u nknown) date) unknown) (unknown) (no (unknown) (unknown) reduced (units (unkno wn) date) unknown) Result panel 2 (unknown) (no date) (unknown) (unknown) Negative (units (unkn own) unknown) Social History No information. Vital Signs No information.
[2022-01-22] MEDS ORDERED: ALBUTEROL NEB 2.5 MG/3 ML INH STA (13:31)
[2022-01-22] MEDS ORDERED: IPRATROPIUM 0.2 MG/ML NEB INH STA (13:31)
[2022-01-22] MEDS ORDERED: methylPREDNISolone SUCCINATE 125 MG/2 ML VIAL IVP STA (13:38)
[2022-01-22 13:39] LABS: BASOPHILS % (AUTO) 0.3 %; EOSINOPHILS # (AUTO) 0.1 10^3/uL (0.0-0.7); HCT - HEMATOCRIT 43.3 % (37.0-47.0); HGB - HEMOGLOBIN 14.1 g/dL (12.0-16.0); LYMPHOCYTES # (AUTO) 1.9 10^3/uL (1.5-3.5); LYMPHOCYTES % (AUTO) 15.7 %; MEAN CORPUSCULAR HEMOGLOBIN 29.5 pg (27.0-31.0); MEAN CORPUSCULAR HGB CONC 32.6 g/dL (32.0-36.0); MEAN CORPUSCULAR VOLUME 90.6 fL (81.0-99.0); MEAN PLATELET VOLUME 9.2 fL (7.9-10.8); MONOCYTES # (AUTO) 1.2 10^3/uL (0.0-1.0); MONOCYTES % (AUTO) 9.9 %; NEUTROPHILS # (AUTO) 8.9 10^3/uL (1.5-6.6); NEUTROPHILS % (AUTO) 72.1 %; PLT - PLATELET COUNT 308 10^3/uL (130-450); RED BLOOD COUNT 4.78 10^6/uL (4.20-5.40); WHITE BLOOD COUNT 12.3 x10^3/uL (4.8-10.8)
--- NOTE | 2022-01-22 13:53 | ED Physician Documentation ---
History of Present Illness - Stated complaint Stated Complaint: SOA - Chief complaint Chief Complaint: Resp - Additonal information Additional information: 71-year-old female presents to the emergency department for evaluation of dyspnea. Symptoms began last night. She presents the emergency department with audible stridor and moderate distress and tachypnea though no real hypoxia. Patient denies any history of asthma or COPD. She is able to speak in full sentences. She does state that a number of years ago she had similar and she believes it is because her sinuses drain into her throat occluding her airway. She denies any chest pain. Review of Systems Constitutional: denies: Fever, Chills Cardiac: denies: Chest pain / pressure, Palpitations Respiratory: reports: Dyspnea GI: reports: Reviewed and negative : reports: Reviewed and negative Skin: reports: Reviewed and negative PD PAST MEDICAL HISTORY - Past Medical History Cardiovascular: Hypertension, High cholesterol, Coronary artery disease Respiratory: Asthma, Sleep apnea Endocrine/Autoimmune: Type 2 diabetes GI: GERD : None HEENT: None Psych: Depression, Anxiety, ADD/ADHD Musculoskeletal: Osteoarthritis, Fibromyalgia Derm: None - Past Surgical History Past Surgical History: Yes General: Colonoscopy Ortho: Carpal Tunnel surgery, Other HEENT: Other - Present Medications Home Medications: Ambulatory Orders Medication Instructions Recorded Confirmed Acetaminophen [Tylenol] 650 mg PO Q4HR PRN 12/10/16 09/29/18 Cyanocobalamin (Vitamin B-12) 1,000 mcg PO BID 12/10/16 09/29/18 [Vitamin B-12] Folic Acid 0.4 mg PO DAILY 12/10/16 09/29/18 Ibuprofen [Motrin] 400 - 800 mg PO Q4HR PRN 12/10/16 09/29/18 Metformin HCl [Metformin HCl ER] 1,000 mg PO BID 12/10/16 09/29/18 Ascorbic Acid [Vitamin C] 500 mg PO DAILY 09/29/18 09/29/18 Cholecalciferol (Vitamin D3) 4,000 unit PO DAILY 09/29/18 09/29/18 [Vitamin D] Lactobacillus Acidophilus 1 each PO DAILY 09/29/18 09/29/18 [Probiotic Acidophilus] Phenylephrine HCl [Sudafed PE] 10 mg PO DAILY PM PRN 09/29/18 09/29/18 diphenhydrAMINE [Benadryl] 25 mg PO Q4-6H PRN 09/29/18 09/29/18 Albuterol Sulfate [Proair Hfa 1 - 2 puffs INH Q4H PRN #1 inhaler 04/16/19 Inhaler] - Allergies Allergies/Adverse Reactions: Allergies Allergy/AdvReac Type Severity Reaction Status Date / Time No Known Drug Allergies Allergy Verified 04/16/19 23:36 - Social History Does the pt smoke?: No Smoking Status: Never smoker Does the pt drink ETOH?: No Does the pt have substance abuse?: No - Immunizations Immunizations are current?: Yes - POLST Patient has POLST: No PD ED PE EXPANDED - General General: Alert, Other (Moderate respiratory distress with stridor) - Cardiac Cardiac: Regular Rate, Radial strong equal, Pedal strong equal, Cap refill < 2 sec - Respiratory Respiratory: Clear to ausultation david, Stridor (Clear lung sounds in all the lung soria. She is obvious stridor emanating from the upper airway. Exam of the posterior oropharynx is unrevealing without soft palate asymmetry or edema. No tongue or lip swelling. Normal phonation. Painful swallow) - Abdomen Abdomen: Normal Bowel sounds - Derm Derm: Normal color, Warm and dry - Extremities Extremities: Normal. No: Deformity, Tenderness - Neuro Neuro: Alert and Oriented X 3, CNII-XII intact Results - Vitals Vitals: Vital Signs - 24 hr 01/22/22 01/22/22 01/22/22 13:04 13:06 13:36 Temperature 37.2 C 37.2 C Heart Rate 118 H 118 H 105 H Respiratory 19 19 14 Rate Blood Pressure 148/92 H 148/92 H 149/79 H O2 Saturation 99 99 94 01/22/22 01/22/22 01/22/22 14:00 14:06 15:00 Temperature Heart Rate 99 90 100 Respiratory 18 20 24 Rate Blood Pressure 150/70 H 162/71 H O2 Saturation 95 95 01/22/22 15:30 Temperature Heart Rate 100 Respiratory 24 Rate Blood Pressure 136/83 H O2 Saturation 95 Oxygen O2 Source Room air - EKG (time done) 1312 Rate: Rate (enter#) (103) Rhythm: Sinus tachycardia, Other (PVC) [place]: Normal Intervals: Normal MD. No: Prolonged QT QRS: LVH Ischemia: ST elevation c/w repol Compare to prior EKG: Old EKG unavailable Computer interpretation: Agree with computer - Labs Labs: Laboratory Tests 01/22/22 01/22/22 01/22/22 13:22 13:34 13:34 WBC 12.3 H RBC 4.78 Hgb 14.1 Hct 43.3 MCV 90.6 MCH 29.5 MCHC 32.6 RDW 14.0 Plt Count 308 MPV 9.2 Neut # (Auto) 8.9 H Lymph # (Auto) 1.9 [place] # (Auto) 1.2 H Eos # (Auto) 0.1 Baso # (Auto) 0.0 Absolute Nucleated RBC 0.00 Nucleated RBC % 0.0 Sodium 137 Potassium 4.6 Chloride 102 Carbon Dioxide 27 Anion Gap 8.0 BUN 12 Creatinine 0.6 Estimated GFR (MDRD) 99 Glucose 151 H POC Whole Bld Glucose 173 H Calcium 9.8 Total Bilirubin 1.0 AST 49 H ALT 69 H Alkaline Phosphatase 186 H Troponin I High Sens Total Protein 8.0 Albumin 4.2 Globulin 3.8 Albumin/Globulin Ratio 1.1 Lipase 30 01/22/22 13:34 WBC RBC Hgb Hct MCV MCH MCHC RDW Plt Count MPV Neut # (Auto) Lymph # (Auto) [place] # (Auto) Eos # (Auto) Baso # (Auto) Absolute Nucleated RBC Nucleated RBC % Sodium Potassium Chloride Carbon Dioxide Anion Gap BUN Creatinine Estimated GFR (MDRD) Glucose POC Whole Bld Glucose Calcium Total Bilirubin AST ALT Alkaline Phosphatase Troponin I High Sens 7.2 Total Protein Albumin Globulin Albumin/Globulin Ratio Lipase - Rads (name of study) CT soft tissue neck Radiology: Final report received (No upper airway obstruction identified within limitations related to motion artifact. No foreign body is identified) cxr Radiology: Final report received (Diffusely increased interstitial markings could represent pulmonary edema or atypical infection) PD MEDICAL DECISION MAKING - ED course Complexity details: reviewed old records, reviewed results, re-evaluated patient, considered differential, d/w patient ED course: 71-year-old female presents emergency department for evaluation of acute respiratory distress and airway stridor. She reports that for about the last 24 hours that she had been having a lot of sinus drainage. If she is unable to keep it adequately moist she reports that it dries out and begins to impact her airway. The only way that she is able to get it out is by coughing forcefully. At home she tried nebulizers to loosen the secretions but was unable to. On presentation to the emergency department she had audible upper airway stridor though she was able to phonate. Cardiopulmonary auscultation was otherwise unremarkable. She was rather tachypneic with a respiratory rate in the 40s but room air saturations were about 92 to 96%. Patient was immediately placed on a DuoNeb/albuterol nebulizer. Given the concern for upper airway stridor she was also administered Solu-Medrol IV. Her chest x-ray was without acute focal findings which was expected given the presentation. Subsequent CT of the neck did not show any findings to suggest airway impingement. On reevaluation she is now free of stridor. She states that after the nebulizer occurred she was able to adequately cough up secretions and now has no audible stridor. The patient did obtain CBC that showed some mild leukocytosis which I attribute to marginalization. Her electrolytes were without acute findings. At this time patient is stable for discharge home. She is encouraged to do steam and humidification at home. She was given some saline here to help with nebulize at home should she develop a recurrence of the symptoms. Given resolved symptoms and lack of findings on CT imaging will defer a course of steroids. I am also making the recommendation for her to follow closely with her primary care provider. She may benefit from using Flonase to help reduce nasal secretions that would then not dry up. Departure - Departure Disposition: 01 Home, Self Care Clinical Impression: Inspiratory stridor Condition: Stable Record reviewed to determine appropriate education?: Yes Comments: Rosemarie melendez came to the emergency department with difficulty breathing. The type of presentation you had a something called stridor which indicates some upper airway inflammation. Your labs did not show anything of worry however the CT that we did also showed no findings to suggest swelling or mass within your upper airway or neck. You describe to us that mucus gets dried out in your throat and obstructs her airway. I encourage you to use Flonase and nasal spray at home. This should help reduce the amount of nasal secretions that you create which should help prevent an exacerbation of your symptoms. However if you develop it again I encourage you to use the saline as a nebulizer. If despite using saline you continue to have difficulty breathing or redevelop stridor do not hesitate to return to the ER for second evaluation. Discussed this ED visit with your primary care provider. You likely benefit from referral to a park interpretive ranger or ear nose throat doctor for longer-term evaluation of this concern.
[2022-01-22 14:03] LABS: ALBUMIN 4.2 g/dL (3.2-5.5); ALBUMIN/GLOBULIN RATIO 1.1 (1.0-2.2); CALCIUM 9.8 mg/dL (8.5-10.3); CREATININE 0.6 mg/dL (0.4-1.0); POTASSIUM 4.6 mmol/L (3.5-5.0)
[2022-01-22] MEDS ORDERED: iohexoL-300 100 ML VIAL ONE (14:12)
--- NOTE | 2022-01-22 14:25 | XRAY Report ---
PROCEDURE: Chest 1 View X-Ray INDICATIONS: Chest pain TECHNIQUE: One view of the chest was acquired. COMPARISON: 04/05/2021 FINDINGS: Surgical changes and devices: None. Lungs and pleura: Diffusely increased interstitial markings with mild cephalization of pulmonary ves sels. Mediastinum: Mediastinal contours appear normal. Heart size is borderline enlarged. Bones and chest wall: No suspicious bony lesions. Overlying soft tissues appear unremarkable. IMPRESSION: Diffusely increased interstitial markings could represent pulmonary edema or atypical infection. Ronni elate with CBC and BNP. Reviewed by: Denton Reyes MD on 01/22/2022 2:24 PM PDT Approved by: Denton Reyes MD on 01/22/2022 2:24 PM PDT Station ID: [id number]
--- NOTE | 2022-01-22 15:27 | CT Report ---
PROCEDURE: SOFT TISSUE NECK W INDICATIONS: upper airway obstruction CONTRAST: 100ml Omnipaque 300 TECHNIQUE: After the administration of intravenous contrast, 3.0 mm axial sections acquired from the sella to th e aortic arch. Additional oblique axial 3.0 mm sections acquired through the pharynx. 3 mm thick co shaheen reformats were generated. For radiation dose reduction, the following was used: automated exp osure control, adjustment of mA and/or kV according to patient size. COMPARISON: None. FINDINGS: Image quality: Degraded by patient motion artifact Lymph nodes: No enlarged lymph nodes seen throughout the neck. Vessels: Visualized vasculature appears patent. Neck spaces: The oropharynx, nasopharynx, and pharynx demonstrate no mucosal lesions. The vocal cor ds, false vocal cords, pyriform sinuses, epiglottis, vallecula, and tongue base all appear normal. E xtramucosal spaces appear unremarkable. Glands: The parotid and submandibular glands appear normal. The thyroid is normal in size and there are no incidental findings. Miscellaneous: Visualized brain and orbits appear normal. Lung apices appear clear. Superficial so ft tissues appear normal. Bones: No suspicious bony lesions. Spine degenerative disc disease and facet arthropathy are noted. Visualized sinuses and mastoids appear unremarkable. IMPRESSION: No upper airway obstruction identified within limitations related to motion artifact. No foreign body is identified. Reviewed by: Brianna Boykin MD, PhD on 01/22/2022 3:26 PM PDT Approved by: Brianna Boykin MD, PhD on 01/22/2022 3:26 PM PDT Station ID: [id number]
[2022-01-22 16:13] VITALS: BP 138/68
[2022-01-23] MEDS ORDERED: iohexoL-300 100 ML VIAL IVP ONE (07:13)
== END 2022-01-22 16:15 | disposition home or self-care (01) ==
LOC: ED 12:55
DX: R06.1 Stridor (principal)
CPT/HCPCS: 36415; 70491; 71045; 80053; 83690; 84484; 85025; 93005; 94640; 96374; 99283; 99284; A9270; Q9967

== ENCOUNTER 2022-01-23 10:32 | Outpatient (CLI) | payer MEDICARE, OTHER | END 2022-01-23 10:33 | disposition critical access hospital (66) | LOC: EMS 10:32 | DX: R06.02 Shortness of breath (principal); R06.2 Wheezing; R00.0 Tachycardia, unspecified | CPT/HCPCS: A0425; A0427 ==

== ENCOUNTER 2022-01-23 10:49 | Inpatient (IN) | payer MEDICARE, OTHER ==
--- OUTSIDE RECORDS SUMMARY | 2022-01-23 10:55 | EXTERNAL MEDICAL SUMMARY RPT | Continuity of Care Document ---
:1950 Author Organization [facility] Address [address] [place] [address] Phone Allergies No information. Encounters No information. Functional Status No information. Immunizations No information. Medications No information. Problems No information. Procedures No information. Results/Labs test date author facility value unit interpret ation Result panel 1 (unknown) (no (unknown) (unknown) (no value) (units (unk nown) date) unknown) (unknown) (no (unknown) (unknown) [address] [place] [address] (units (unknown) date) unknown) (unknown) (no (unknown) (unknown) [place], [place] (units ( unknown) date) [id number] unknown) (unknown) (no (unknown) (unknown) [facility] (units (unknown) date) unknown) (unknown) (no (unknown) [...] (HUI unknown) +43%). (unknown) (no (unknown) (unknown) [id number] (units (unkno wn) date) unknown) (unknown) (no (unknown) (unknown) Accession Number: (units (unknown) date) [id number] unknown) (unknown) (no (unknown) (unknown) Age/Sex: 70 / F (units (unknown) date) Date of Service: unknown) (unknown) (no (unknown) (unknown) : 1950 (units (unknown) date) Acct:[id number] unknown) (unknown) (no (unknown) (unknown) Loc: [facility] (units (o wn) date) unknown) (unknown) (no (unknown) (unknown) [...]
[2022-01-23] MEDS ORDERED: ALBUTEROL NEB 2.5 MG/3 ML INH ONE (11:04)
--- NOTE | 2022-01-23 11:07 | ED Physician Documentation ---
PD HPI DYSPNEA - Stated complaint Stated Complaint: COPD EXACERBATION - Chief complaint Chief Complaint: Resp - History obtained from History obtained from: Patient - History of Present Illness Timing - onset: How many days ago (several) Timing - onset during: Rest, Light activity Timing - duration: Days Timing - details: Gradual onset, Still present (worsening since yesterday) Inciting event(s): URI. No: Immobilization/travel Improved by: O2, Inhaler/neb Associated symptoms: Cough, Wheezing. No: Fever, Chest pain / discomfort, Bilateral edema Similar symptoms before: Diagnosis (She states she did have a nebulizer with a respiratory infection about 2 years ago. No ongoing need or use for it. No underlying history of COPD per se. Non-smoker.) Recently seen: Emergency Dept (yesterday with more upper resp/throat symptoms and stridorous sounds. Improved with neb treatment. Stable and clinically good for discharge yesterday. Increasedd dyspnea and cough today.) Review of Systems Constitutional: reports: Myalgias. denies: Fever Nose: reports: Rhinorrhea / runny nose, Congestion Throat: reports: Sore throat Cardiac: denies: Chest pain / pressure, Palpitations, Pedal edema Respiratory: reports: Dyspnea, Cough, Wheezing GI: denies: Abdominal Pain, Nausea, Vomiting, Diarrhea Skin: denies: Rash, Lesions Neurologic: reports: Generalized weakness. denies: Focal weakness, Numbness, Near syncope, Altered mental status, Headache PD PAST MEDICAL HISTORY - Past Medical History Cardiovascular: Hypertension, High cholesterol, Coronary artery disease Respiratory: Asthma, Sleep apnea Endocrine/Autoimmune: Type 2 diabetes GI: GERD : None HEENT: None Psych: Depression, Anxiety, ADD/ADHD Musculoskeletal: Osteoarthritis, Fibromyalgia Derm: None - Past Surgical History Past Surgical History: Yes General: Colonoscopy Ortho: Carpal Tunnel surgery, Other HEENT: Other - Present Medications Home Medications: Ambulatory Orders Medication Instructions Recorded Confirmed Acetaminophen [Tylenol] 650 mg PO Q4HR PRN 12/10/16 09/29/18 Cyanocobalamin (Vitamin B-12) 1,000 mcg PO BID 12/10/16 09/29/18 [Vitamin B-12] Folic Acid 0.4 mg PO DAILY 12/10/16 09/29/18 Ibuprofen [Motrin] 400 - 800 mg PO Q4HR PRN 12/10/16 09/29/18 Metformin HCl [Metformin HCl ER] 1,000 mg PO BID 12/10/16 09/29/18 Ascorbic Acid [Vitamin C] 500 mg PO DAILY 09/29/18 09/29/18 Cholecalciferol (Vitamin D3) 4,000 unit PO DAILY 09/29/18 09/29/18 [Vitamin D] Lactobacillus Acidophilus 1 each PO DAILY 09/29/18 09/29/18 [Probiotic Acidophilus] Phenylephrine HCl [Sudafed PE] 10 mg PO DAILY PM PRN 09/29/18 09/29/18 diphenhydrAMINE [Benadryl] 25 mg PO Q4-6H PRN 09/29/18 09/29/18 Albuterol Sulfate [Proair Hfa 1 - 2 puffs INH Q4H PRN #1 inhaler 04/16/19 Inhaler] - Allergies Allergies/Adverse Reactions: Allergies Allergy/AdvReac Type Severity Reaction Status Date / Time No Known Drug Allergies Allergy Verified 04/16/19 23:36 - Social History Does the pt smoke?: No Smoking Status: Never smoker Does the pt drink ETOH?: No Does the pt have substance abuse?: No - Immunizations Immunizations are current?: Yes - POLST Patient has POLST: No PD ED PE NORMAL - Vitals Vital signs reviewed: Yes - General General: Alert and oriented X 3, Well developed/nourished, Other - HEENT HEENT: Ears normal, Moist mucous membranes, Pharynx benign - Neck Neck: Supple, no meningeal sign, No adenopathy - Cardiac Cardiac: RRR, No murmur - Respiratory Respiratory: No: Clear bilaterally (There is some work of breathing with accessory muscle use and tachypnea. There is diffuse wheeziness and also central wheezing as well. Normal phonation and able to swallow normally.) - Abdomen Abdomen: Soft, Non tender, Non distended - Derm Derm: Normal color, Warm and dry, No rash - Extremities Extremities: No edema, No calf tenderness / cord - Neuro Neuro: Alert and oriented X 3, No motor deficit, Normal speech Results - Vitals Vitals: Vital Signs - 24 hr 01/23/22 01/23/22 01/23/22 11:00 11:04 11:10 Temperature 37.1 C Heart Rate 84 119 H Respiratory 27 H 30 H Rate Blood Pressure 146/77 H O2 Saturation 92 84 L If not protocol 6 : Oxygen Flow, liters/minute 01/23/22 11:55 Temperature Heart Rate 120 H Respiratory 29 H Rate Blood Pressure 165/40 H O2 Saturation 91 L If not protocol 6 : Oxygen Flow, liters/minute Oxygen O2 Source Oxymizer Oxygen Flow Rate 6 - Labs Labs: Laboratory Tests 01/23/22 01/23/22 01/23/22 11:30 11:30 11:30 WBC 22.2 H RBC 4.51 Hgb 13.3 Hct 41.9 MCV 92.9 MCH 29.5 MCHC 31.7 L RDW 14.6 Plt Count 301 MPV 9.7 Neut # (Auto) 17.9 H Lymph # (Auto) 1.6 [place] # (Auto) 1.9 H Eos # (Auto) 0.0 Baso # (Auto) 0.1 Absolute Nucleated RBC 0.00 Nucleated RBC % 0.0 Manual Slide Review Indicated Platelet Estimate NORMAL (130-450,000) Platelet Morphology NORMAL APPEARANCE RBC Morph Micro Appear NORMAL APPEARANCE Sodium 132 L Potassium 3.8 Chloride 100 L Carbon Dioxide 18 L Anion Gap 14.0 H BUN 24 H Creatinine 0.9 Estimated GFR (MDRD) 62 L Glucose 384 H Lactic Acid 4.9 H* Calcium 8.6 Total Bilirubin 0.9 AST 481 H ALT 274 H Alkaline Phosphatase 184 H B-Natriuretic Peptide Total Protein 6.8 Albumin 3.3 Globulin 3.5 Albumin/Globulin Ratio 0.9 L Lipase 37 01/23/22 11:30 WBC RBC Hgb Hct MCV MCH MCHC RDW Plt Count MPV Neut # (Auto) Lymph # (Auto) [place] # (Auto) Eos # (Auto) Baso # (Auto) Absolute Nucleated RBC Nucleated RBC % Manual Slide Review Platelet Estimate Platelet Morphology RBC Morph Micro Appear Sodium Potassium Chloride Carbon Dioxide Anion Gap BUN Creatinine Estimated GFR (MDRD) Glucose Lactic Acid Calcium Total Bilirubin AST ALT Alkaline Phosphatase B-Natriuretic Peptide 87 Total Protein Albumin Globulin Albumin/Globulin Ratio Lipase - Rads (name of study) chest xray Radiology: Prelim report reviewed (interstitial prominence consider CHF versus pneumonia), See rad report PD MEDICAL DECISION MAKING - ED course Complexity details: reviewed results (Diffuse interstitial changes consistent with pneumonitis versus CHF, clinically correlate.), re-evaluated patient, considered differential (Presume progressive upper respiratory infection now to pneumonitis/pneumonia. Now hypoxic compared to yesterday.), d/w patient ED course: The patient was having work of breathing and diffuse wheezing. This improved with nebulizer on route by EMS and further improvement with nebulizers here in the ER. She was hypoxic on room air but improved with nasal cannula. She did increase to 1 Oxymizer at 6 L nasal cannula initially. She is breathing much more comfortably and we likely can reduce that down. She has not required any further oxygenation beyond nasal cannula. She is now satting at 95 to 96%. She does have markers for significant infection with an elevated white count and lactate. There is no findings to correlate with CHF and her BNP is normal so I believe this is more interstitial infiltrate. Her respiratory panel is still pending but sounds likely to be possible RSV or similar type virus. We will cover for bacterial causes prudently after discussion with the hospitalist. Departure - Departure Disposition: 66 [facility] DC/Xfer Clinical Impression: Acute pneumonia, Hypoxia, Sepsis, COVID-19 Condition: Stable
[2022-01-23] MEDS ORDERED: ALBUTEROL NEB 2.5 MG/3 ML INH STA (11:18)
[2022-01-23] MEDS ORDERED: DEXAMETHASONE 10 MG/ML VIAL IVP STA (11:22)
[2022-01-23 11:38] LABS: BASOPHILS # (AUTO) 0.1 10^3/uL (0.0-0.1); BASOPHILS % (AUTO) 0.2 %; HCT - HEMATOCRIT 41.9 % (37.0-47.0); HGB - HEMOGLOBIN 13.3 g/dL (12.0-16.0); LYMPHOCYTES # (AUTO) 1.6 10^3/uL (1.5-3.5); LYMPHOCYTES % (AUTO) 7.3 %; MEAN CORPUSCULAR HEMOGLOBIN 29.5 pg (27.0-31.0); MEAN CORPUSCULAR HGB CONC 31.7 g/dL (32.0-36.0); MEAN CORPUSCULAR VOLUME 92.9 fL (81.0-99.0); MEAN PLATELET VOLUME 9.7 fL (7.9-10.8); MONOCYTES # (AUTO) 1.9 10^3/uL (0.0-1.0); MONOCYTES % (AUTO) 8.6 %; NEUTROPHILS # (AUTO) 17.9 10^3/uL (1.5-6.6); NEUTROPHILS % (AUTO) 80.9 %; PLT - PLATELET COUNT 301 10^3/uL (130-450); RED BLOOD COUNT 4.51 10^6/uL (4.20-5.40); RED CELL DISTRIBUTION WIDTH 14.6 % (12.0-15.0); WHITE BLOOD COUNT 22.2 x10^3/uL (4.8-10.8)
[2022-01-23 11:51] LABS: SLIDE REVIEW? Indicated
[2022-01-23 11:52] LABS: PLATELET ESTIMATE, MANUAL NORMAL (130-450,000) (NORMAL); PLATELET MORPHOLOGY NORMAL APPEARANCE (NORMAL); RBC MORPHOLOGY (MULTIPLE) NORMAL APPEARANCE (NORMAL)
[2022-01-23 11:55] LABS: ALBUMIN 3.3 g/dL (3.2-5.5); ALBUMIN/GLOBULIN RATIO 0.9 (1.0-2.2); BILIRUBIN,TOTAL 0.9 mg/dL (0.2-1.0); CALCIUM 8.6 mg/dL (8.5-10.3); CREATININE 0.9 mg/dL (0.4-1.0); POTASSIUM 3.8 mmol/L (3.5-5.0); TOTAL PROTEIN 6.8 g/dL (6.7-8.2)
--- NOTE | 2022-01-23 12:13 | XRAY Report ---
PROCEDURE: Chest 1 View X-Ray INDICATIONS: chest pain TECHNIQUE: One view of the chest was acquired. COMPARISON: 01/22/2022 FINDINGS: Heart size enlarged, there is moderate vascular congestion, similar prior exam. Pleural spaces are cl ear. Centralized pulmonary infiltrate present. Osseous structures are demineralized. Degenerative changes noted involving both shoulders. IMPRESSION: Cardiomegaly, moderate vascular congestion and probable central pulmonary edema, similar to the prior exam. Reviewed by: Star Rodríguez MD on 01/23/2022 11:12 AM MARTI Approved by: Star Rodríguez MD on 01/23/2022 11:12 AM MARTI Station ID: [id number]
[2022-01-23] MEDS ORDERED: SODIUM CHLORIDE 0.9% 1,000 ML IV STA (12:39)
[2022-01-23] MEDS ORDERED: cefTRIAXone 1 GM VIAL IVP STA (12:47)
[2022-01-23] MEDS ORDERED: AZITHROMYCIN INJ 500 MG in SODIUM CHLORIDE 0.9% 250 ML IV STA (12:47)
[2022-01-23 12:52] LABS: CORONAVIRUS 229E-RESP PCR NOT DETECTED; CORONAVIRUS HKU1-RESP PCR NOT DETECTED; CORONAVIRUS NL63-RESP PCR NOT DETECTED; CORONAVIRUS OC43-RESP PCR NOT DETECTED
[2022-01-23 12:53] LABS: B. PARAPERTUSSIS- RESP PCR PAN NOT DETECTED; B. PERTUSSIS- RESP PCR PANEL NOT DETECTED; C. PNEUMONIAE- RESP PCR PANEL NOT DETECTED; HUMAN METAPNEUMOVIRUS NOT DETECTED; INFLUENZA A- RESP PCR PANEL NOT DETECTED; INFLUENZA B - RESP PCR PANEL NOT DETECTED; M. PNEUMONIAE- RESP PCR PANEL NOT DETECTED; PARAINFLUENZA VIRUS 1 NOT DETECTED; PARAINFLUENZA VIRUS 2 NOT DETECTED; PARAINFLUENZA VIRUS 3 NOT DETECTED; PARAINFLUENZA VIRUS 4 NOT DETECTED; RHINOVIRUS/ENTEROVIRUS NOT DETECTED; RSV- RESP PCR PANEL NOT DETECTED
[2022-01-23 12:54] LABS: SARS-CoV-2 -RESP PCR PANEL DETECTED
[2022-01-23] MEDS ORDERED: ACETAMINOPHEN 325 MG TABLET PO STA (13:24)
[2022-01-23] MEDS ORDERED: ONDANSETRON 4 MG/2 ML VIAL IVP PRN (15:19)
[2022-01-23] MEDS ORDERED: IPRATROPIUM/ALBUTEROL 3 ML NEB INH PRN (15:23)
--- NOTE | 2022-01-23 15:32 | HISTORY & PHYSICAL EXAMINATION ---
Chief Complaint - Chief Complaint Chief Complaint: SOB History of Present Illness - Admitted From Admitted From:: ED - History Obtained From History obtained from: ED provider, chart review and the pt - History of Present Illness HPI Comment/Other: This is a 71-year-old white female with a history of CAD, past history of a COPD exacerbation but no longer on nebulizers, diabetes on metformin. The patient developed shortness of breath with cough and upper respiratory including nasal congestion for 2 days. With this she came to the ER yesterday when she had shortness of breath and air hunger including stridor. She underwent a CT of the neck then, got nebulizers, steroid and had improvement, no findings of obstruction found on neck imaging. Her chest x-ray showed diffuse hazy congestion, her BNP was normal at 87 however and her wheezing improved therefore she was discharged home with presumptive diagnosis of viral pneumonitis. Then today she presented back to the emergency room with worsening cough with sputum production, worsening shortness of breath but the stridor was no longer present. She had documented oxygen desaturations of 84% on room air in the ED. She received nebulizers and started on supplemental oxygen. Chest x-ray shows worsening haziness consistent with interstitial pneumonia. Her white count which was 12 yesterday has increased to 22 today (but she did get Solu-Medrol yesterday). Her lactic acid level is elevated at 4.9. Her viral screen shows that she has COVID-positive results. The patient herself reports she is not short of breath but is wearing nasal cannula supplemental oxygen. She says there is minimal sputum production. She reports no fever, diarrhea or abdominal upset. She says that in the ER she was told that her "chest was clear yesterday and today" and is surprised she has Covid pneumonia, because she has tried to be careful to prevent getting it. The patient is being admitted to the Hospitalist service for community-acquired pneumonia, COVID-pneumonia, and sepsis with a COPD exacerbation. I discussed her CODE BLUE wishes and she wants to be a Full Code, including intubation and being on the ventilator, if needed. History - Past Medical History Cardiovascular: reports: Hypertension, High cholesterol, Coronary artery disease Respiratory: reports: Asthma, Sleep apnea (She does not use her CPAP machine because it blows air into her tear duct where she has a stent on the L, which causes bubbling and dry eye) Neuro: reports: None Endocrine/Autoimmune: reports: Type 2 diabetes GI: reports: GERD : reports: None HEENT: reports: None Psych: reports: Depression, Anxiety, ADD/ADHD Musculoskeletal: reports: Osteoarthritis, Fibromyalgia Derm: reports: None MRSA Hx?: No - Past Surgical History General: reports: Colonoscopy Ortho: reports: Carpal Tunnel surgery, Other HEENT: reports: Other - Family & Social History Family History: Mother: , Father: , Sister: Alive and Well (She has 2 older sisters, 1 has many comorbidities) Family History Comment/Other: She has 6 natural children, they are healthy Living arrangement: At home Living Situation: Alone Social History Notes: She never smoked cigarettes, she drinks no alcohol. She uses no illicit drugs. She is and is a retired [employer]. - Substance History Use: Uses substance without health or social issues: NONE - POLST Patient has POLST: No Meds/Allgy - Home Medications Home Medications: Ambulatory Orders Medication Instructions Recorded Confirmed Acetaminophen [Tylenol] 650 mg PO Q4HR PRN 12/10/16 01/23/22 Cyanocobalamin (Vitamin B-12) 1,000 mcg PO BID 12/10/16 01/23/22 [Vitamin B-12] Folic Acid 0.4 mg PO DAILY 12/10/16 01/23/22 Ibuprofen [Motrin] 400 - 800 mg PO Q4HR PRN 12/10/16 01/23/22 Metformin HCl [Metformin HCl ER] 1,000 mg PO BID 12/10/16 01/23/22 Ascorbic Acid [Vitamin C] 500 mg PO DAILY 09/29/18 01/23/22 Cholecalciferol (Vitamin D3) 4,000 unit PO DAILY 09/29/18 01/23/22 [Vitamin D] Lactobacillus Acidophilus 1 each PO DAILY 09/29/18 01/23/22 [Probiotic Acidophilus] Albuterol Sulfate [Proair Hfa 1 - 2 puffs INH Q4H PRN #1 inhaler 04/16/19 01/23/22 Inhaler] Insulin Aspart [NovoLOG] 30 unit SQ TID 01/23/22 01/23/22 Insulin Glargine [Lantus Solostar] 46 unit SQ DAILY 01/23/22 01/23/22 Rosuvastatin Calcium [Crestor] 5 mg PO DAILY 01/23/22 01/23/22 Exenatide Microspheres [Bydureon 2 mg SQ .WEEKLY 01/24/22 01/24/22 Bcise] - Allergies Allergies/Adverse Reactions: Allergies Allergy/AdvReac Type Severity Reaction Status Date / Time No Known Drug Allergies Allergy Verified 04/16/19 23:36 Review of Systems - Ears, Nose & Throat Ears, Nose & Throat: reports: Nasal obstruction, Nasal congestion, Postnasal drainage - Respiratory Respiratory: reports: Cough, SOB with exertion - All Other Systems All Other Systems: reports: Reviewed and negative Exam - Vital Signs Vital Signs: Vital Signs x48h Temp Pulse Resp BP Pulse Ox O2 Flow Rate 01/23/22 15:00 36.8 C 104 H 27 H 128/69 95 6 01/23/22 13:04 36.7 C 92 26 H 113/53 L 93 6 01/23/22 11:55 120 H 29 H 165/40 H 91 L 6 01/23/22 11:10 119 H 30 H 6 01/23/22 11:04 84 L 01/23/22 11:00 37.1 C 84 27 H 146/77 H 92 - Physical Exam General Appearance: positive: No acute distress (wearing O2 per HiFlow n.c.), Other (Obese, appears younger than her stated age.) Eyes Bilateral: positive: Normal inspection, EOMI ENT: positive: ENT inspection nml, No signs of dehydration, Other (wearing HiFlo oximizer via n.c.) Neck: positive: Nml inspection, No JVD Respiratory: positive: Breath sounds nml (clear but very diminished) Cardiovascular: positive: Regular rate & rhythm, No murmur, Other (distant heart sounds due to obesity) Abdomen: positive: Non-tender, Other Skin: positive: Warm, Dry Extremities: positive: Non-tender, No pedal edema Neurologic/Psychiatric: positive: Oriented x3 (Non-focal) Conclusion/Plan - Problem List (1) Acute respiratory failure with hypoxia Conclusion/Plan: This is from her underlying atypical pneumonia which is likely from COVID. Will continue with supplemental oxygen, keeping O2 sats greater than 90%. We will treat the underlying problem (2) Sepsis Conclusion/Plan: Likely related to her current respiratory infection We will start the patient on IV fluids. Follow her lactic acid level to assure it is improving. (3) Pneumonia due to COVID-19 virus Conclusion/Plan: Will begin treatment for COVID-pneumonia causing hypoxia. Give supplemental oxygen to achieve saturations greater than 90%. Begin remdesivir. Continue Decadron daily IV. Will order a hand-held inhaler to use as needed wheezing and air hunger. I did discuss her wishes if the respiratory status worsens and she would agree to be put on a ventilator. (4) CAP (community acquired pneumonia) Conclusion/Plan: We will begin the patient on empiric antibiotics using ceftriaxone and Zithromax Radha WBC daily (5) COPD exacerbation Conclusion/Plan: She describes that she has needed prescriptions for nebulizers in the past "when she gets a bad deep pneumonia). Otherwise she actually has not been diagnosed with COPD or asthma. Will continue with prn inhaled bronchodilator treatments now and scheduled daily IV Decadron (6) Diabetes mellitus Conclusion/Plan: Will order a carb controlled diet, continue long-acting insulin and short acting insulin with meals plus order hypoglycemia protocol, fingerstick checks and sliding scale insulin coverage. Check A1c with morning labs. (7) History of coronary artery disease Conclusion/Plan: As per EMR. Will resume all her usual medications once they are reconciled (8) Morbid obesity with BMI of 40.0-44.9, adult Conclusion/Plan: As per Hx. - Lab Results Fish Bones: 01/24/22 04:43 01/24/22 04:43 - Diagnostic Imaging Results Diagnostic Imaging Results: positive: Final report reviewed - Other Other Results/Comments: Attestation: The patient is expected to be discharged or transferred to another facility within 96 hours: Yes.
[2022-01-23] MEDS: SODIUM CHLORIDE 0.9% 1,000 ML IV SCH (16:56)
[2022-01-23] MEDS: SODIUM CHLORIDE FLUSH 0.9% 10 ML SYRINGE IVP SCH (16:57)
[2022-01-23] MEDS ORDERED: INSULIN LISPRO 300 UNIT/3 ML PEN SUBQ SCH ×2 (17:00→23:00)
--- NOTE | 2022-01-23 17:39 | PHARMACY PROGRESS NOTE ---
- Best Possible Medication History Admit Date and Time: 01/23/22 1519 Processed by: Nursing Medication History completed: Yes As the person ultimately responsible for medication therapy, providers are able to order a medication from an existing home medication list in [facility] via the "Reconcile Routine" prior to Confirmation of that medication by technical support specialist. Such practice is discouraged except when the physician, in their clinical judgment, deems that a medical need exists for a medication without regard to previous use.
[2022-01-23] MEDS ORDERED: REMDESIVIR 100MG VIAL 200 MG in SODIUM CHLORIDE 0.9% 250 ML IV ONE (18:00)
[2022-01-23] MEDS: guaiFENesin 600 MG TABLET PO SCH (20:54)
[2022-01-23] MEDS ORDERED: INSULIN ASPART 300 UNIT/3 ML PEN SUBQ ONE (22:00)
[2022-01-23] MEDS ORDERED: INSULIN GLARGINE-YFGN 300 UNIT/3 ML PEN SUBQ SCH (22:02)
[2022-01-24] MEDS: ACETAMINOPHEN 325 MG TABLET PO PRN ×4 (00:11→23:41)
[2022-01-24] MEDS: SODIUM CHLORIDE FLUSH 0.9% 10 ML SYRINGE IVP SCH ×3 (00:37→16:53)
[2022-01-24] MEDS: SODIUM CHLORIDE 0.9% 1,000 ML IV SCH ×2 (04:14→16:49)
[2022-01-24] MEDS: ALBUTEROL 1 PUFF INH PRN ×3 (04:28→18:03)
[2022-01-24 05:17] LABS: BASOPHILS % (AUTO) 0.2 %; HCT - HEMATOCRIT 39.3 % (37.0-47.0); HGB - HEMOGLOBIN 12.6 g/dL (12.0-16.0); LYMPHOCYTES % (AUTO) 10.9 %; MEAN CORPUSCULAR HEMOGLOBIN 29.6 pg (27.0-31.0); MEAN CORPUSCULAR HGB CONC 32.1 g/dL (32.0-36.0); MEAN CORPUSCULAR VOLUME 92.3 fL (81.0-99.0); MEAN PLATELET VOLUME 9.9 fL (7.9-10.8); MONOCYTES % (AUTO) 9.2 %; NEUTROPHILS % (AUTO) 78.8 %; PLT - PLATELET COUNT 312 10^3/uL (130-450); RED BLOOD COUNT 4.26 10^6/uL (4.20-5.40); RED CELL DISTRIBUTION WIDTH 14.8 % (12.0-15.0); WHITE BLOOD COUNT 18.2 x10^3/uL (4.8-10.8)
[2022-01-24 05:21] LABS: ABNORMAL LYMPHS % (MANUAL) 0 %; BAND NEUTROPHILS % (MANUAL) 0 %
[2022-01-24 05:27] LABS: CALCIUM 8.7 mg/dL (8.5-10.3); CREATININE 0.7 mg/dL (0.4-1.0)
[2022-01-24 05:36] LABS: DIFFERENTIAL COMMENT MANUAL DIFFERENTIAL; LYMPHOCYTES # (MANUAL) 2.4 10^3/uL (1.5-3.5); LYMPHOCYTES % (MANUAL) 13 %; MONOCYTES # (MANUAL) 2.4 10^3/uL (0.0-1.0); NEUTROPHILS # (MANUAL) 13.5 10^3/uL (1.5-6.6); PLATELET ESTIMATE, MANUAL NORMAL (130-450,000) (NORMAL); PLATELET MORPHOLOGY NORMAL APPEARANCE (NORMAL); RBC MORPHOLOGY (MULTIPLE) NORMAL APPEARANCE (NORMAL); WBC MORPHOLOGY (MULTIPLE) NORMAL APPEARANCE (NORMAL)
[2022-01-24] MEDS: INSULIN LISPRO 300 UNIT/3 ML PEN SUBQ SCH ×6 (08:33→21:08)
[2022-01-24] MEDS: DEXAMETHASONE 4 MG/ML VIAL IVP SCH (08:36)
[2022-01-24] MEDS: ENOXAPARIN 40 MG/0.4 ML SYRINGE SUBQ SCH (08:36)
[2022-01-24] MEDS: SACCHAROMYCES BOULARDII 250 MG CAPSULE PO SCH ×2 (08:36→16:50)
[2022-01-24] MEDS: guaiFENesin 600 MG TABLET PO SCH ×2 (08:36→21:08)
[2022-01-24] MEDS: AZITHROMYCIN INJ 500 MG in SODIUM CHLORIDE 0.9% 250 ML IV SCH (08:37)
[2022-01-24] MEDS ORDERED: INSULIN GLARGINE-YFGN 300 UNIT/3 ML PEN SUBQ SCH ×2 (09:00→21:00)
[2022-01-24] MEDS: cefTRIAXone 2 GM in SODIUM CHLORIDE 0.9% MINIBAG 100 ML IV SCH (09:58)
[2022-01-24 12:39] LABS: ESTIMATED AVERAGE GLUCOSE 194 mg/dL (70-100); HEMOGLOBIN A1c% 8.4 % (4.27-6.07)
--- NOTE | 2022-01-24 13:42 | PROVIDER PROGRESS NOTE ---
Assessment/Plan - Problem List (1) Acute respiratory failure with hypoxia Assessment/Plan: This is from her underlying atypical pneumonia which is likely from COVID and has improved slightly Will continue with supplemental oxygen, keeping O2 sats greater than 90%. We are treating the underlying problem (2) Sepsis Conclusion/Plan: Likely related to her current respiratory infection. Her lactic acid level has decreased and she is clinically better. She is on IV fluid hydration at 100 cc/hr, and will decrease the rate due to pedal edema (3) Pneumonia due to COVID-19 virus Conclusion/Plan: We began treatment for COVID-pneumonia causing hypoxia. She reports her cough is loosening up ever since iv fluids and Mucinex started. WBC elevated likely from steroid use. Isolation ordered. Cont supplemental oxygen to achieve saturations greater than 90%. Cont remdesivir. Continue Decadron daily IV. Will order a hand-held inhaler to use as needed wheezing and air hunger. At admission I did discuss her wishes if the respiratory status worsens and she would agree to be put on a ventilator. (4) CAP (community acquired pneumonia) Conclusion/Plan: We will begin the patient on empiric antibiotics using ceftriaxone and Zithromax Follow WBC daily (5) COPD exacerbation Conclusion/Plan: She describes that she has needed prescriptions for nebulizers in the past "when she gets a bad deep pneumonia". Otherwise she actually has not been diagnosed w ith COPD or asthma. Will continue with prn inhaled bronchodilator treatments now and scheduled daily IV Decadron (6) Diabetes mellitus Conclusion/Plan: We ordered a carb controlled diet, continue long-acting insulin and short acting insulin with meals plus ordered hypoglycemia protocol, fingerstick checks and sliding scale insulin coverage. Awaiting A1c with morning labs. (7) History of coronary artery disease Conclusion/Plan: As per EMR. Will resume all her usual medications once they are reconciled (8) Morbid obesity with BMI of 40.0-44.9, adult Conclusion/Plan: As per Hx. - Current Meds Current Meds: Current Medications Generic Name Dose Route Start Last Admin Trade Name Freq PRN Reason Stop Dose Admin Acetaminophen 650 mg 01/23/22 15:19 01/24/22 08:36 Acetaminophen 325 Mg Tablet PO 650 mg Q4HR PRN Administration Pain 1 to 4, or Fever Albuterol 2 puffs 01/23/22 15:48 01/24/22 11:32 Albuterol 1 Puff INH 2 puffs Q4H PRN Administration Wheezing Dexamethasone 6 mg 01/24/22 09:00 01/24/22 08:36 Dexamethasone 4 Mg/Ml Vial IVP 01/26/22 00:01 6 mg DAILY ARYA Administration Enoxaparin Sodium 40 mg 01/24/22 09:00 01/24/22 08:36 Enoxaparin 40 Mg/0.4 Ml Syringe SUBQ 40 mg DAILY ARYA Administration Guaifenesin 600 mg 01/23/22 21:00 01/24/22 08:36 Guaifenesin 600 Mg Tablet PO 600 mg BID ARYA Administration Sodium Chloride 1,000 mls @ 100 mls/hr 01/23/22 16:00 01/24/22 04:14 Normal Saline 0.9% IV 100 mls/hr .Q10H ARYA Administration Ceftriaxone Sodium 2 gm/ 100 mls @ 200 mls/hr 01/24/22 09:00 01/24/22 10:28 Sodium Chloride IV 01/27/22 09:29 Infused DAILY ARYA Infusion Azithromycin 500 mg/ Sodium 250 mls @ 250 mls/hr 01/24/22 09:00 01/24/22 09:37 Chloride IV 01/25/22 09:59 Infused DAILY ARYA Infusion Insulin Human Lispro 3 - 11 unit 01/24/22 08:00 01/24/22 11:56 Insulin Lispro 300 Unit/3 Ml Pen SUBQ 9 unit 0800,1200,1700,2100 ARYA Administration Protocol Insulin Human Lispro 10 unit 01/24/22 12:00 01/24/22 11:56 Insulin Lispro 300 Unit/3 Ml Pen SUBQ 10 unit TIDWM ARYA Administration Protocol Saccharomyces Boulardii 250 mg 01/24/22 08:00 01/24/22 08:36 Saccharomyces Boulardii 250 Mg Capsule PO 250 mg BIDWM ARYA Administration Sodium Chloride 10 ml 01/23/22 17:00 01/24/22 08:37 Sodium Chloride Flush 0.9% 10 Ml Syringe IVP Not Given 0100,0900,1700 ARYA - Lab Result Fish Bone Diagrams: 01/24/22 04:43 01/24/22 04:43 - Additional Planning My Orders: My Active Orders 01/23/22 15:19 Activity Orders [RC] Q2HR IO [RC] IOSHIFT Incentive Spirometry - RT [RC] TID Initiate Bowel Care Protocol [RC] .protocol Initiate Line Care Protocol [RC] .protocol Initiate Line Care Protocol [RC] QSHIFT Initiate Personal Care Protoco [RC] .protocol Oxygen Therapy [RC] .PRN Telemetry (24 Hour) [RC] Q4HR Vital Signs [RC] QSHIFT Acetaminophen [Tylenol] 650 mg PO Q4HR PRN Ondansetron Inj [Zofran Inj] 4 mg IVP Q6HR PRN Sodium Chloride Flush 0.9% [Normal Saline Flush 0.9%] 10 ml IVP PRN PRN Code Status [OTHERS] Routine Condition of Patient [OTHERS] Routine DVT Prophylaxis [OTHERS] Routine 01/23/22 15:21 Daily Weight [RC] 0600 01/23/22 15:23 Ipratropium/Albuterol [Duoneb] 3 ml INH Q4HR PRN 01/23/22 15:25 Blood Glucose Checks - Eating [RC] 0800,1200,1700,2100 Initiate Hypoglycemia Protocol [RC] .protocol 01/23/22 15:27 Isolation [Infection Precautions] [RC] QSHIFT 01/23/22 15:48 Mdi: Albuterol 2 puffs INH Q4H PRN 01/23/22 15:50 Resp Teach Nebulizer/MDI [RC] .ONCE 01/23/22 16:00 Sodium Chloride 0.9% [Normal Saline 0.9%] 1,000 ml IV 100 mls/hr 01/23/22 Dinner Carb-controlled Diet [DIET] 01/23/22 16:24 RT [Nebulizer/MDI Tx.] [RC] .Q4PRN 01/23/22 17:00 Sodium Chloride Flush 0.9% [Normal Saline Flush 0.9%] 10 ml IVP 0100,0900,1700 01/23/22 21:00 guaiFENesin [Mucinex] 600 mg PO BID 01/24/22 06:19 Acapella [RC] TID 01/24/22 08:00 Saccharomyces Boulardii [Florastor] 250 mg PO BIDWM 01/24/22 09:00 Azithromycin Inj [Zithromax Inj] 500 mg Sodium Chloride 0.9% [Normal Saline 0.9%] 250 ml IV DAILY Enoxaparin [Lovenox] 40 mg SUBQ DAILY cefTRIAXone [Rocephin] 2 gm Sodium Chloride 0.9% Minibag [Normal Saline 0.9% Minibag] 100 ml IV DAILY dexAMETHasone [Decadron] 6 mg IVP DAILY 01/24/22 12:00 Insulin Lispro [Humalog Kwikpen U-100] 10 unit SUBQ TIDWM 01/24/22 14:00 Remdesivir 100Mg Vial [Veklury] 100 mg Sodium Chloride 0.9% 100Ml [Normal Saline 0.9% 100Ml] 100 ml IV DAILY 01/24/22 21:00 Insulin Glargine-Yfgn [Semglee] 46 unit SUBQ HS 01/25/22 05:00 BMP - BASIC METABOLIC PANEL [CHEM] DAILYLAB CBC - COMP BLD CT W/AUTO DIFF [HEME] DAILYLAB 01/26/22 05:00 BMP - BASIC METABOLIC PANEL [CHEM] DAILYLAB CBC - COMP BLD CT W/AUTO DIFF [HEME] DAILYLAB 01/27/22 05:00 BMP - BASIC METABOLIC PANEL [CHEM] DAILYLAB CBC - COMP BLD CT W/AUTO DIFF [HEME] DAILYLAB 01/28/22 05:00 BMP - BASIC METABOLIC PANEL [CHEM] DAILYLAB CBC - COMP BLD CT W/AUTO DIFF [HEME] DAILYLAB Subjective - Subjective Patient Reports: Feeling Better Nursing Reports: Other (Her high flow supplemental oxygen at 6 L has been weaned down to nasal cannula at 3 L and sats are 90 to 92%) Objective Vital Signs: Vital Signs - 24 hr 01/23/22 01/23/22 01/23/22 15:00 16:50 16:54 Temperature 36.8 C 36.8 C Heart Rate 104 H Heart Rate [ Brachial] Heart Rate [ 113 H Monitoring electrodes] Respiratory 27 H 24 Rate Blood Pressure 128/69 Blood Pressure 138/74 H [Right Brachial artery] O2 Saturation 95 97 If not protocol 6 6 6 : Oxygen Flow, liters/minute 01/23/22 01/23/22 01/24/22 20:32 23:25 00:13 Temperature 37.1 C 36.9 C Heart Rate Heart Rate [ 87 92 Brachial] Heart Rate [ Monitoring electrodes] Respiratory 22 18 Rate Blood Pressure Blood Pressure 126/84 H 133/66 H [Right Brachial artery] O2 Saturation 95 93 If not protocol 6 6 6 : Oxygen Flow, liters/minute 01/24/22 01/24/22 01/24/22 04:07 04:29 07:57 Temperature 36.7 C 36.4 C L Heart Rate Heart Rate [ 81 94 Brachial] Heart Rate [ Monitoring electrodes] Respiratory 20 20 Rate Blood Pressure Blood Pressure 117/70 122/73 [Right Brachial artery] O2 Saturation 98 98 If not protocol 6 6 6 : Oxygen Flow, liters/minute 01/24/22 01/24/22 01/24/22 08:57 11:34 11:39 Temperature Heart Rate 78 Heart Rate [ Brachial] Heart Rate [ 88 Monitoring electrodes] Respiratory 18 Rate Blood Pressure Blood Pressure [Right Brachial artery] O2 Saturation 98 If not protocol 3 4 4 : Oxygen Flow, liters/minute 01/24/22 11:40 Temperature 36.9 C Heart Rate Heart Rate [ 82 Brachial] Heart Rate [ Monitoring electrodes] Respiratory 20 Rate Blood Pressure Blood Pressure 134/68 H [Right Brachial artery] O2 Saturation 97 If not protocol 4 : Oxygen Flow, liters/minute Oxygen O2 Source Nasal cannula Oxygen Flow Rate 6 I&O (Last 24 Hrs): Intake and Output Totals x24h 01/22/22 01/23/22 01/24/22 23:59 23:59 23:59 Intake Total 2381.667 3068.333 Output Total 200 Balance 2381.667 2868.333 General: Alert, Oriented x3, Other (exam done remotely) HEENT: Mucous membr. moist/pink, Other (wearing O2 via n.c.) Neck: Supple Neuro: Alert, Other (paraplegia from waist down) Cardiovascular: Regular rate, No murmurs Respiratory: No respiratory distress (on suppl O2) Abdomen: Soft Extremities: Other (Trace-1+ edema of feet) - Results Results: Laboratory Results WBC 18.2 x10^3/uL (4.8-10.8) H 01/24/22 04:43 RBC 4.26 10^6/uL (4.20-5.40) 01/24/22 04:43 Hgb 12.6 g/dL (12.0-16.0) 01/24/22 04:43 Hct 39.3 % (37.0-47.0) 01/24/22 04:43 MCV 92.3 fL (81.0-99.0) 01/24/22 04:43 MCH 29.6 pg (27.0-31.0) 01/24/22 04:43 MCHC 32.1 g/dL (32.0-36.0) 01/24/22 04:43 RDW 14.8 % (12.0-15.0) 01/24/22 04:43 Plt Count 312 10^3/uL (130-450) 01/24/22 04:43 MPV 9.9 fL (7.9-10.8) 01/24/22 04:43 Neut # (Auto) Not Reportable 01/24/22 04:43 Lymph # (Auto) Not Reportable 01/24/22 04:43 [place] # (Auto) Not Reportable 01/24/22 04:43 Eos # (Auto) Not Reportable 01/24/22 04:43 Baso # (Auto) Not Reportable 01/24/22 04:43 Absolute Nucleated RBC Not Reportable 01/24/22 04:43 Total Counted 100 01/24/22 04:43 Band Neuts % (Manual) 0 % (0-10) 01/24/22 04:43 Abnorm Lymph % (Manual) 0 % 01/24/22 04:43 Nucleated RBC % Not Reportable 01/24/22 04:43 Neutrophils # (Manual) 13.5 10^3/uL (1.5-6.6) H 01/24/22 04:43 Lymphocytes # (Manual) 2.4 10^3/uL (1.5-3.5) 01/24/22 04:43 Monocytes # (Manual) 2.4 10^3/uL (0.0-1.0) H 01/24/22 04:43 Eosinophils # (Manual) 0.0 10^3/uL (0-0.7) 01/24/22 04:43 Basophils # (Manual) 0.0 10^3/uL (0-0.1) 01/24/22 04:43 Differential Comment MANUAL DIFFERENTIAL 01/24/22 04:43 Manual Slide Review Indicated 01/23/22 11:30 WBC Morphology NORMAL APPEARANCE (NORMAL) 01/24/22 04:43 Platelet Estimate NORMAL (130-450,000) (NORMAL) 01/24/22 04:43 Platelet Morphology NORMAL APPEARANCE (NORMAL) 01/24/22 04:43 RBC Morph Micro Appear NORMAL APPEARANCE (NORMAL) 01/24/22 04:43 Sodium 135 mmol/L (135-145) 01/24/22 04:43 Potassium 4.0 mmol/L (3.5-5.0) 01/24/22 04:43 Chloride 103 mmol/L (101-111) 01/24/22 04:43 Carbon Dioxide 23 mmol/L (21-32) 01/24/22 04:43 Anion Gap 9.0 (6-13) 01/24/22 04:43 BUN 22 mg/dL (6-20) H 01/24/22 04:43 Creatinine 0.7 mg/dL (0.4-1.0) 01/24/22 04:43 Estimated GFR (MDRD) 82 (>89) L 01/24/22 04:43 Glucose 271 mg/dL (70-100) H 01/24/22 04:43 Estimat Average Glucose 194 mg/dL (70-100) H 01/24/22 04:43 Hemoglobin A1c % 8.4 % (4.27-6.07) H 01/24/22 04:43 Lactic Acid 3.6 mmol/L (0.5-2.2) H* 01/23/22 15:38 Calcium 8.7 mg/dL (8.5-10.3) 01/24/22 04:43 Total Bilirubin 0.9 mg/dL (0.2-1.0) 01/23/22 11:30 AST 481 IU/L (10-42) H 01/23/22 11:30 ALT 274 IU/L (10-60) H 01/23/22 11:30 Alkaline Phosphatase 184 IU/L (42-121) H 01/23/22 11:30 B-Natriuretic Peptide 87 pg/mL (5-100) 01/23/22 11:30 Total Protein 6.8 g/dL (6.7-8.2) 01/23/22 11:30 Albumin 3.3 g/dL (3.2-5.5) 01/23/22 11:30 Globulin 3.5 g/dL (2.1-4.2) 01/23/22 11:30 Albumin/Globulin Ratio 0.9 (1.0-2.2) L 01/23/22 11:30 Lipase 37 U/L (22-51) 01/23/22 11:30 Nasal Adenovirus (PCR) NOT DETECTED 01/23/22 11:43 Nasal B. parapertussis DNA (PCR) NOT DETECTED 01/23/22 11:43 Nasal Coronavir 229E PCR NOT DETECTED 01/23/22 11:43 Nasal Coronavir HKU1 PCR NOT DETECTED 01/23/22 11:43 Nasal Coronavir NL63 PCR NOT DETECTED 01/23/22 11:43 Nasal Coronavir OC43 PCR NOT DETECTED 01/23/22 11:43 Nasal Enterovir/Rhinovir PCR NOT DETECTED 01/23/22 11:43 Nasal Influenza B PCR NOT DETECTED 01/23/22 11:43 Nasal Influenza A PCR NOT DETECTED 01/23/22 11:43 Nasal Parainfluen 1 PCR NOT DETECTED 01/23/22 11:43 Nasal Parainfluen 2 PCR NOT DETECTED 01/23/22 11:43 Nasal Parainfluen 3 PCR NOT DETECTED 01/23/22 11:43 Nasal Parainfluen 4 PCR NOT DETECTED 01/23/22 11:43 Nasal RSV (PCR) NOT DETECTED 01/23/22 11:43 Nasal B.pertussis DNA PCR NOT DETECTED 01/23/22 11:43 Nasal C.pneumoniae (PCR) NOT DETECTED 01/23/22 11:43 Martin Human Metapneumo PCR NOT DETECTED 01/23/22 11:43 Nasal M.pneumoniae (PCR) NOT DETECTED 01/23/22 11:43 Nasal SARS-CoV-2 (PCR) DETECTED A 01/23/22 11:43 - Procedures Procedures: Procedures REPOSITION RIGHT FIBULA WITH INT FIX, OPEN APPROACH (07/25/16) REPOSITION RIGHT TIBIA WITH INT FIX, OPEN APPROACH (07/25/16)
[2022-01-24] MEDS: REMDESIVIR 100MG VIAL 100 MG in SODIUM CHLORIDE 0.9% 100ML 100 ML IV SCH (14:18)
[2022-01-24] MEDS ORDERED: diphenhydrAMINE 25 MG CAPSULE PO PRN (14:55)
[2022-01-24] MEDS ORDERED: SODIUM CHLORIDE 0.9% 1,000 ML IV SCH (22:04)
[2022-01-25] MEDS: SODIUM CHLORIDE FLUSH 0.9% 10 ML SYRINGE IVP SCH ×4 (03:38→23:57)
[2022-01-25 05:35] LABS: BASOPHILS % (AUTO) 0.1 %; EOSINOPHILS % (AUTO) 0.1 %; HCT - HEMATOCRIT 37.6 % (37.0-47.0); HGB - HEMOGLOBIN 12.2 g/dL (12.0-16.0); LYMPHOCYTES # (AUTO) 3.3 10^3/uL (1.5-3.5); LYMPHOCYTES % (AUTO) 23.1 %; MEAN CORPUSCULAR HEMOGLOBIN 30.6 pg (27.0-31.0); MEAN CORPUSCULAR HGB CONC 32.4 g/dL (32.0-36.0); MEAN CORPUSCULAR VOLUME 94.2 fL (81.0-99.0); MEAN PLATELET VOLUME 9.8 fL (7.9-10.8); MONOCYTES # (AUTO) 1.4 10^3/uL (0.0-1.0); MONOCYTES % (AUTO) 10.2 %; NEUTROPHILS # (AUTO) 9.3 10^3/uL (1.5-6.6); NEUTROPHILS % (AUTO) 65.8 %; PLT - PLATELET COUNT 244 10^3/uL (130-450); RED BLOOD COUNT 3.99 10^6/uL (4.20-5.40); WHITE BLOOD COUNT 14.1 x10^3/uL (4.8-10.8)
[2022-01-25 05:43] LABS: CALCIUM 8.5 mg/dL (8.5-10.3); CREATININE 0.6 mg/dL (0.4-1.0); POTASSIUM 3.6 mmol/L (3.5-5.0)
[2022-01-25] MEDS: ALBUTEROL 1 PUFF INH PRN (07:28)
[2022-01-25] MEDS: DEXAMETHASONE 4 MG/ML VIAL IVP SCH (07:42)
[2022-01-25] MEDS: INSULIN LISPRO 300 UNIT/3 ML PEN SUBQ SCH ×6 (07:44→23:56)
--- NOTE | 2022-01-25 08:01 | PROVIDER PROGRESS NOTE ---
Assessment/Plan - Problem List (1) Respiratory arrest Assessment/Plan: Patient had shortness of breath with walking in the scientific laboratory supervisor and a chest x- ray was done that showed worsened interstial changes vs CHF. BNP was WNL, but her iv fluids were stopped, she was given a nebulizer treatment and improved. Her suppl O2 needs increased from 3L via n.c. to 10L HiFlow, then back down to 3L. Approximately 4 hours later, while sitting upright, she was in severe respiratory distress again and was helped back to bed with HOB elevated and then she became unresponsive; she did not have spontaneous respirations and did not respond to a sternal rub. She did have a pulse, and was in sinus rhythm at rate of 120 and had a blood palpable and her blood pressure was confirmed by the blood pressure cuff. Respiratory arrest/CODE BLUE was called. She was bagged and jaw thrust performed. She had oral airway put in briefly because her tongue was occluding her airway. She never lost her pulse or blood pressure. Anesthesia arrived at my request to intubate her. She was given sedatives and paralytics by the anesthesia department. ET intubation was difficult, there were 4 attempts: 2 tries with an 8 Hebrew ET tube then finally 7.5 Hebrew tube. ET tube was placed under visual guidance. She was difficult to bag and also had a high peak pressures when put on the ventilator. She had intermittent desaturations with saturations of 60% to 70% despite Ambu bag and ventilator support. A OG tube was placed and stomach air was deflated. A second peripheral IV was placed by anesthesia. She was then transported to the ICU. She was started on Versed drip and fentanyl drip, placed on the ventilator with settings of tidal volume 450, AC 22, PEEP 10, FiO2 60%. An art line was ordereded, and central line to be placed by anesthsia. Chest re: placement was done, that showed good position of the ET tube and orogastric tube. Solu-Medrol 125 mg IV was given stat, for concern that she has upper airway edema, since this was also the concern the day before admission, when she had presented to the ED with stridor, and a CT of her neck was done that did not show airway occlusion. Will continue daily iv Decadron. The patient's status is critical. ICU admission orders written, Brannon ordered. Continue with management in the ICU including ventilator care. Versed and Fentanyl drips for sedation. Pepcid iv fro stress ulcer prophylaxis. Will obtain EKG and will cycle troponins x2 or more if they are climbing. This Hospitalist called her friend Tino Garcia ([phone]), since this is the only person listed in her chart for contact. (Patient told me at admission that she has 6 children however). Tino did call us back and I updated her. Tino will call the children: SofiPatriciaRhonda Brock, Amanda and there is 1 more son that she could not remember who's 's name is Anne-Marie (and there was 1 more child who has ). CRITICAL CARE TIME SPENT: 100 min (as recruiting team lead in the respiratory arrest/CODE BLUE, entering transfer orders, reassessment of the patient, adjustment of ventilator based on ABG, review of labs, reaching out to family member/friend). (2) Acute respiratory failure with hypoxia Assessment/Plan: The patient was less SOB yesterday but more short of breath today after awakening. An inhaler/nebulizer was offered but the patient declined to use it initially, then her RN convinced her. Chest x-ray ordered stat and showed increased interstitial changes consistent with atypical pneumonia versus CHF. Her BNP is normal today IV fluids have been discontinued in case of CHF/ARDS Continue respiratory support Continue to treat her underlying COVID-pneumonia, given Deacadron early, and treating a possible community-acquired pneumonia. (3) Sepsis Conclusion/Plan: Elevated Lactic Acid at admission, had decreased. Likely related to her current respiratory infection We will start the patient on IV fluids. Follow her lactic acid level to assure it is improving. (4) Pneumonia due to COVID-19 virus Conclusion/Plan: Will begin treatment for COVID-pneumonia causing hypoxia. Give supplemental oxygen to achieve saturations greater than 90%. Begin remdesivir. Continue Decadron daily IV. Will order a hand-held inhaler to use as needed wheezing and air hunger. I did discuss her wishes if the respiratory status worsens and she would agree to be put on a ventilator. (5) CAP (community acquired pneumonia) Conclusion/Plan: She had no elva lobar infiltrate but we started the patient on empiric antibiotics using ceftriaxone and Zithromax, in case of bronchitis or an infiltrate that would "blossom" with iv fluids Follow WBC daily Follow CXR often (6) COPD exacerbation Conclusion/Plan: She describes that she has needed prescriptions for nebulizers in the past "when she gets a bad deep pneumonia", but at admission she claimed she actually has not been diagnosed with COPD or asthma. In review of this EMR, she had PFTs done 03/27 and was in fact diagnosed with mild COPD Will order scheduled Duonebs, continue with prn inhaled bronchodilator treat ments, add inhaled Pulmicort scheduled and she is already on scheduled daily IV Decadron 6mg, after a first dose of 10 mg given in ER. (7) Diabetes mellitus Conclusion/Plan: We ordered a carb controlled diet, long-acting insulin and short acting insulin with meals plus ordered hypoglycemia protocol, fingerstick checks and sliding scale insulin coverage. Her A1c came back at 8.4, indicating poor control. Now that she ins intubated and on the vent, will start iv fluids with D5NS and do fingerstick checks q6h. (8) History of coronary artery disease Conclusion/Plan: As per EMR. We planned on resuming all her usual medications once they are reconciled Order troponins and EKG (9) Morbid obesity with BMI of 45-49, in adult Conclusion/Plan: As per Hx. - Current Meds Current Meds: Current Medications Generic Name Dose Route Start Last Admin Trade Name Freq PRN Reason Stop Dose Admin Acetaminophen 650 mg 01/23/22 15:19 01/24/22 23:41 Acetaminophen 325 Mg Tablet PO 650 mg Q4HR PRN Administration Pain 1 to 4, or Fever Albuterol 2 puffs 01/23/22 15:48 01/25/22 07:28 Albuterol 1 Puff INH 2 puffs Q4H PRN Administration Wheezing Dexamethasone 6 mg 01/24/22 09:00 01/25/22 07:42 Dexamethasone 4 Mg/Ml Vial IVP 01/26/22 00:01 6 mg DAILY ARYA Administration Diphenhydramine HCl 25 mg 01/24/22 14:55 01/24/22 22:59 Diphenhydramine 25 Mg Capsule PO 25 mg QPM PRN Administration Insomnia Enoxaparin Sodium 40 mg 01/24/22 09:00 01/24/22 08:36 Enoxaparin 40 Mg/0.4 Ml Syringe SUBQ 40 mg DAILY ARYA Administration Guaifenesin 600 mg 01/23/22 21:00 01/24/22 21:08 Guaifenesin 600 Mg Tablet PO 600 mg BID ARYA Administration Ceftriaxone Sodium 2 gm/ 100 mls @ 200 mls/hr 01/24/22 09:00 01/24/22 10:28 Sodium Chloride IV 01/27/22 09:29 Infused DAILY ARYA Infusion Azithromycin 500 mg/ Sodium 250 mls @ 250 mls/hr 01/24/22 09:00 01/24/22 09:37 Chloride IV 01/25/22 09:59 Infused DAILY ARYA Infusion Remdesivir 100 mg/ Sodium 100 mls @ 200 mls/hr 01/24/22 14:00 01/24/22 14:48 Chloride IV 01/27/22 09:29 Infused DAILY ARYA Infusion Insulin Glargine-yfgn 46 unit 01/24/22 21:00 01/24/22 21:10 Insulin Glargine-Yfgn 300 Unit/3 Ml Pen SUBQ 46 unit HS ARYA Administration Insulin Human Lispro 3 - 11 unit 01/24/22 08:00 01/25/22 07:44 Insulin Lispro 300 Unit/3 Ml Pen SUBQ 3 unit 0800,1200,1700,2100 ON LICENSE OF [facility] Administration Protocol Insulin Human Lispro 10 unit 01/24/22 12:00 01/25/22 07:53 Insulin Lispro 300 Unit/3 Ml Pen SUBQ 10 unit TIDWM ON LICENSE OF [facility] Administration Protocol Saccharomyces Boulardii 250 mg 01/24/22 08:00 01/24/22 16:50 Saccharomyces Boulardii 250 Mg Capsule PO 250 mg BIDWM ARYA Administration Sodium Chloride 10 ml 01/23/22 17:00 01/25/22 03:38 Sodium Chloride Flush 0.9% 10 Ml Syringe IVP Not Given 0100,0900,1700 ARYA - Lab Result Fish Bone Diagrams: 01/25/22 13:19 01/25/22 13:19 - EKG Results EKG Interpreted Independently: Yes EKG Comparison: Changed from prior EKG EKG Findings: Sinus tachycardia, rate 125, QS waves present in V1 and V2, lateral scooping ST depressions. Since EKG from 01/22/2022, lateral ST abnormalities are new. - Additional Planning My Orders: My Active Orders 01/24/22 08:00 Saccharomyces Boulardii [Florastor] 250 mg PO BIDWM 01/24/22 09:00 Azithromycin Inj [Zithromax Inj] 500 mg Sodium Chloride 0.9% [Normal Saline 0.9%] 250 ml IV DAILY Enoxaparin [Lovenox] 40 mg SUBQ DAILY cefTRIAXone [Rocephin] 2 gm Sodium Chloride 0.9% Minibag [Normal Saline 0.9% Minibag] 100 ml IV DAILY dexAMETHasone [Decadron] 6 mg IVP DAILY 01/24/22 12:00 Insulin Lispro [Humalog Kwikpen U-100] 10 unit SUBQ TIDWM 01/24/22 14:00 Remdesivir 100Mg Vial [Veklury] 100 mg Sodium Chloride 0.9% 100Ml [Normal Saline 0.9% 100Ml] 100 ml IV DAILY 01/24/22 14:55 diphenhydrAMINE [Benadryl] 25 mg PO QPM PRN 01/24/22 21:00 Insulin Glargine-Yfgn [Semglee] 46 unit SUBQ HS 01/25/22 05:00 BNP - B-NATRIURETIC PEPTIDE [IAI] Stat 01/25/22 07:58 Chest 1 View X-Ray [XR] Stat 01/26/22 05:00 BMP - BASIC METABOLIC PANEL [CHEM] DAILYLAB CBC - COMP BLD CT W/AUTO DIFF [HEME] DAILYLAB 01/27/22 05:00 BMP - BASIC METABOLIC PANEL [CHEM] DAILYLAB CBC - COMP BLD CT W/AUTO DIFF [HEME] DAILYLAB 01/28/22 05:00 BMP - BASIC METABOLIC PANEL [CHEM] DAILYLAB CBC - COMP BLD CT W/AUTO DIFF [HEME] DAILYLAB Subjective - Subjective Patient Reports: Other (Currently sedated and intubated) Objective Vital Signs: Vital Signs - 24 hr 01/24/22 01/24/22 01/24/22 08:57 11:34 11:39 Temperature Heart Rate 78 Heart Rate [ Brachial] Heart Rate [ 88 Monitoring electrodes] Respiratory 18 Rate Blood Pressure [Right Brachial artery] O2 Saturation 98 If not protocol 3 4 4 : Oxygen Flow, liters/minute 01/24/22 01/24/22 01/24/22 11:40 15:51 18:05 Temperature 36.9 C 36.6 C Heart Rate 78 Heart Rate [ 82 Brachial] Heart Rate [ 87 Monitoring electrodes] Respiratory 20 20 21 Rate Blood Pressure 134/68 H 125/66 [Right Brachial artery] O2 Saturation 97 94 If not protocol 4 3 4 : Oxygen Flow, liters/minute 01/24/22 01/24/22 01/24/22 19:46 19:51 23:46 Temperature 37.1 C 36.8 C Heart Rate Heart Rate [ 86 95 Brachial] Heart Rate [ Monitoring electrodes] Respiratory 20 19 Rate Blood Pressure 129/75 147/71 H [Right Brachial artery] O2 Saturation 97 97 If not protocol 3 4 3 : Oxygen Flow, liters/minute 01/25/22 01/25/22 01/25/22 03:35 07:29 07:46 Temperature 36.8 C 36.5 C Heart Rate 91 Heart Rate [ 78 101 H Brachial] Heart Rate [ Monitoring electrodes] Respiratory 16 23 21 Rate Blood Pressure 130/74 157/83 H [Right Brachial artery] O2 Saturation 97 94 If not protocol 3 4 4 : Oxygen Flow, liters/minute Oxygen O2 Source Nasal cannula Oxygen Flow Rate 6 I&O (Last 24 Hrs): Intake and Output Totals x24h 01/23/22 01/24/22 01/25/22 23:59 23:59 23:59 Intake Total 2381.667 5833.333 1000 Output Total 200 Balance 2381.667 5633.333 1000 General: Other (sedated on the vent) HEENT: Mucous membr. moist/pink Neck: Supple Neuro: Other (sedated) Cardiovascular: Regular rate, No murmurs Respiratory: Breath sounds nml Abdomen: Soft, Other (Obese, has a small umbilical hernia.) Extremities: No clubbing, No edema - Results Results: Laboratory Results WBC 14.1 x10^3/uL (4.8-10.8) H 01/25/22 05:22 RBC 3.99 10^6/uL (4.20-5.40) L 01/25/22 05:22 Hgb 12.2 g/dL (12.0-16.0) 01/25/22 05:22 Hct 37.6 % (37.0-47.0) 01/25/22 05:22 MCV 94.2 fL (81.0-99.0) 01/25/22 05:22 MCH 30.6 pg (27.0-31.0) 01/25/22 05: MCHC 32.4 g/dL (32.0-36.0) 01/25/22 05: RDW 15.0 % (12.0-15.0) 01/25/22 05:22 Plt Count 244 10^3/uL (130-450) 01/25/22 05:22 MPV 9.8 fL (7.9-10.8) 01/25/22 05:22 Neut # (Auto) 9.3 10^3/uL (1.5-6.6) H 01/25/22 05:22 Lymph # (Auto) 3.3 10^3/uL (1.5-3.5) 01/25/22 05:22 [place] # (Auto) 1.4 10^3/uL (0.0-1.0) H 01/25/22 05:22 Eos # (Auto) 0.0 10^3/uL (0.0-0.7) 01/25/22 05:22 Baso # (Auto) 0.0 10^3/uL (0.0-0.1) 01/25/22 05:22 Absolute Nucleated RBC 0.00 x10^3/uL 01/25/22 05:22 Total Counted 100 01/24/22 04:43 Band Neuts % (Manual) 0 % (0-10) 01/24/22 04:43 Abnorm Lymph % (Manual) 0 % 01/24/22 04:43 Nucleated RBC % 0.0 /100WBC 01/25/22 05:22 Neutrophils # (Manual) 13.5 10^3/uL (1.5-6.6) H 01/24/22 04:43 Lymphocytes # (Manual) 2.4 10^3/uL (1.5-3.5) 01/24/22 04:43 Monocytes # (Manual) 2.4 10^3/uL (0.0-1.0) H 01/24/22 04:43 Eosinophils # (Manual) 0.0 10^3/uL (0-0.7) 01/24/22 04:43 Basophils # (Manual) 0.0 10^3/uL (0-0.1) 01/24/22 04:43 Differential Comment MANUAL DIFFERENTIAL 01/24/22 04:43 Manual Slide Review Indicated 01/23/22 11:30 WBC Morphology NORMAL APPEARANCE (NORMAL) 01/24/22 04:43 Platelet Estimate NORMAL (130-450,000) (NORMAL) 01/24/22 04:43 Platelet Morphology NORMAL APPEARANCE (NORMAL) 01/24/22 04:43 RBC Morph Micro Appear NORMAL APPEARANCE (NORMAL) 01/24/22 04:43 Sodium 136 mmol/L (135-145) 01/25/22 05:22 Potassium 3.6 mmol/L (3.5-5.0) 01/25/22 05:22 Chloride 103 mmol/L (101-111) 01/25/22 05:22 Carbon Dioxide 24 mmol/L (21-32) 01/25/22 05:22 Anion Gap 9.0 (6-13) 01/25/22 05:22 BUN 17 mg/dL (6-20) 01/25/22 05:22 Creatinine 0.6 mg/dL (0.4-1.0) 01/25/22 05:22 Estimated GFR (MDRD) 99 (>89) 01/25/22 05:22 Glucose 156 mg/dL (70-100) H 01/25/22 05:22 Estimat Average Glucose 194 mg/dL (70-100) H 01/24/22 04:43 Hemoglobin A1c % 8.4 % (4.27-6.07) H 01/24/22 04:43 Lactic Acid 3.6 mmol/L (0.5-2.2) H* 01/23/22 15:38 Calcium 8.5 mg/dL (8.5-10.3) 01/25/22 05:22 Total Bilirubin 0.9 mg/dL (0.2-1.0) 01/23/22 11:30 AST 481 IU/L (10-42) H 01/23/22 11:30 ALT 274 IU/L (10-60) H 01/23/22 11:30 Alkaline Phosphatase 184 IU/L (42-121) H 01/23/22 11:30 B-Natriuretic Peptide 87 pg/mL (5-100) 01/23/22 11:30 Total Protein 6.8 g/dL (6.7-8.2) 01/23/22 11:30 Albumin 3.3 g/dL (3.2-5.5) 01/23/22 11:30 Globulin 3.5 g/dL (2.1-4.2) 01/23/22 11:30 Albumin/Globulin Ratio 0.9 (1.0-2.2) L 01/23/22 11:30 Lipase 37 U/L (22-51) 01/23/22 11:30 Nasal Adenovirus (PCR) NOT DETECTED 01/23/22 11:43 Nasal B. parapertussis DNA (PCR) NOT DETECTED 01/23/22 11:43 Nasal Coronavir 229E PCR NOT DETECTED 01/23/22 11:43 Nasal Coronavir HKU1 PCR NOT DETECTED 01/23/22 11:43 Nasal Coronavir NL63 PCR NOT DETECTED 01/23/22 11:43 Nasal Coronavir OC43 PCR NOT DETECTED 01/23/22 11:43 Nasal Enterovir/Rhinovir PCR NOT DETECTED 01/23/22 11:43 Nasal Influenza B PCR NOT DETECTED 01/23/22 11:43 Nasal Influenza A PCR NOT DETECTED 01/23/22 11:43 Nasal Parainfluen 1 PCR NOT DETECTED 01/23/22 11:43 Nasal Parainfluen 2 PCR NOT DETECTED 01/23/22 11:43 Nasal Parainfluen 3 PCR NOT DETECTED 01/23/22 11:43 Nasal Parainfluen 4 PCR NOT DETECTED 01/23/22 11:43 Nasal RSV (PCR) NOT DETECTED 01/23/22 11:43 Nasal B.pertussis DNA PCR NOT DETECTED 01/23/22 11:43 Nasal C.pneumoniae (PCR) NOT DETECTED 01/23/22 11:43 Martin Human Metapneumo PCR NOT DETECTED 01/23/22 11:43 Nasal M.pneumoniae (PCR) NOT DETECTED 01/23/22 11:43 Nasal SARS-CoV-2 (PCR) DETECTED A 01/23/22 11:43 - Procedures Procedures: Procedures REPOSITION RIGHT FIBULA WITH INT FIX, OPEN APPROACH (07/25/16) REPOSITION RIGHT TIBIA WITH INT FIX, OPEN APPROACH (07/25/16)
[2022-01-25] MEDS: SACCHAROMYCES BOULARDII 250 MG CAPSULE PO SCH ×2 (08:16→17:38)
[2022-01-25] MEDS: guaiFENesin 600 MG TABLET PO SCH (08:16)
[2022-01-25] MEDS: ENOXAPARIN 40 MG/0.4 ML SYRINGE SUBQ SCH (08:16)
[2022-01-25] MEDS: cefTRIAXone 2 GM in SODIUM CHLORIDE 0.9% MINIBAG 100 ML IV SCH (08:18)
--- NOTE | 2022-01-25 08:45 | XRAY Report ---
PROCEDURE: Chest 1 View X-Ray INDICATIONS: Worsening SOB, Covid (+) TECHNIQUE: One view of the chest was acquired. COMPARISON: 01/23/2022 FINDINGS: Surgical changes and devices: None. Lungs and pleura: Persistent diffuse interstitial prominence with loss of vascular distinctness and pulmonary vascular congestion. No new focal consolidation seen. Suspected small left pleural effusion . No pneumothorax. Mediastinum: Mediastinal contours appear stable. Heart size is enlarged. Bones and chest wall: No suspicious bony lesions. Overlying soft tissues appear unremarkable. IMPRESSION: Cardiomegaly with findings compatible with pulmonary edema. However, concurrent infectious/inflammato ry process not excluded given reported history of positive Covid 19. No focal consolidations. Reviewed by: Barney Gallegos MD on 01/25/2022 8:43 AM PDT Approved by: Barney Gallegos MD on 01/25/2022 8:43 AM PDT Station ID: [id number]
[2022-01-25] MEDS: AZITHROMYCIN INJ 500 MG in SODIUM CHLORIDE 0.9% 250 ML IV SCH (08:50)
[2022-01-25] MEDS: REMDESIVIR 100MG VIAL 100 MG in SODIUM CHLORIDE 0.9% 100ML 100 ML IV SCH (09:56)
[2022-01-25] MEDS ORDERED: MORPHINE 2 MG/ML CARPUJECT IVP PRN ×2 (12:00→15:53)
[2022-01-25] MEDS ORDERED: PROPOFOL 1000 MG/100 ML 1,000 MG/100 ML BOTTLE IV ONE (12:19)
[2022-01-25] MEDS ORDERED: fentaNYL 100 MCG/2 ML VIAL ONE (12:20)
[2022-01-25] MEDS ORDERED: MIDAZOLAM 2 MG/2 ML VIAL ONE (12:20)
[2022-01-25] MEDS ORDERED: PROPOFOL 200 MG/20 ML VIAL IVP ONE (12:20)
[2022-01-25] MEDS ORDERED: SUCCINYLCHOLINE 200 MG/10 ML VIAL ONE (12:20)
[2022-01-25] MEDS ORDERED: ROCURONIUM 50 MG/5 ML VIAL ONE (12:38)
[2022-01-25] MEDS ORDERED: methylPREDNISolone SUCCINATE 125 MG/2 ML VIAL ONE (12:53)
[2022-01-25] MEDS: fentaNYL 2,500 MCG/250 ML 2,500 MCG/250 ML BAG IV SCH (13:17)
[2022-01-25] MEDS: MIDAZOLAM DRIP 50 MG/50 ML 50 MG/50 ML BAG IV SCH ×2 (13:18→18:34)
[2022-01-25 13:27] LABS: ABG HCO3 21.3 mmol/L (22.0-26.0); ABG PCO2 54 mmHg (34-45); ABG PH 7.22 (7.35-7.45); ABG PO2 75 mmHg (80-100)
[2022-01-25 13:28] LABS: ABG BASE EXCESS -6.9 mmol/L (-2.0-3.0); ABG MODE OF VENTILATION ASSIST/CONTROL; ABG OXYGEN SATURATION 92 % (94-98)
[2022-01-25 13:29] LABS: ABG RESPIRATORY RATE 22 b/min
[2022-01-25] MEDS ORDERED: methylPREDNISolone SUCCINATE 125 MG/2 ML VIAL IVP ONE (13:30)
[2022-01-25] MEDS ORDERED: IPRATROPIUM/ALBUTEROL 3 ML NEB INH ONE (13:30)
--- NOTE | 2022-01-25 13:43 | XRAY Report ---
PROCEDURE: Chest for Line Placement INDICATIONS: ET/NG TUBE PLACEMENT TECHNIQUE: One view of the chest was acquired. COMPARISON: 01/25/2022 FINDINGS: Defibrillator pads in place. Endotracheal tube terminates in the thoracic trachea approximately 2.5 c m from the shante. Enteric tube terminates inferior to the diaphragm and outside the field of view. D iffuse bilateral interstitial and airspace opacities have progressed in the interval since prior stud y. IMPRESSION: Appropriate position of endotracheal and enteric tubes. Is interval worsening of interstitial and airspace opacities. Reviewed by: Denton Reyes MD on 01/25/2022 1:41 PM PDT Approved by: Denton Reyes MD on 01/25/2022 1:41 PM PDT Station ID: [id number]
[2022-01-25] MEDS ORDERED: PROCHLORPERAZINE 10 MG/2 ML VIAL IVP PRN (13:46)
[2022-01-25 13:55] LABS: BASOPHILS # (AUTO) 0.1 10^3/uL (0.0-0.1); BASOPHILS % (AUTO) 0.3 %; EOSINOPHILS % (AUTO) 0.1 %; HCT - HEMATOCRIT 43.6 % (37.0-47.0); HGB - HEMOGLOBIN 13.9 g/dL (12.0-16.0); LYMPHOCYTES # (AUTO) 1.2 10^3/uL (1.5-3.5); LYMPHOCYTES % (AUTO) 5.7 %; MEAN CORPUSCULAR HEMOGLOBIN 30.3 pg (27.0-31.0); MEAN CORPUSCULAR HGB CONC 31.9 g/dL (32.0-36.0); MEAN PLATELET VOLUME 10.1 fL (7.9-10.8); MONOCYTES # (AUTO) 1.2 10^3/uL (0.0-1.0); NEUTROPHILS # (AUTO) 17.4 10^3/uL (1.5-6.6); NEUTROPHILS % (AUTO) 84.6 %; PLT - PLATELET COUNT 334 10^3/uL (130-450); RED BLOOD COUNT 4.59 10^6/uL (4.20-5.40); WHITE BLOOD COUNT 20.6 x10^3/uL (4.8-10.8)
[2022-01-25] MEDS ORDERED: methylPREDNISolone SUCCINATE 125 MG/2 ML VIAL IVP SCH (14:00)
[2022-01-25 14:06] LABS: CALCIUM 8.5 mg/dL (8.5-10.3); CREATININE 0.8 mg/dL (0.4-1.0); CRP - C-REACTIVE PROTEIN 2.2 mg/dL (0-1.0); POTASSIUM 4.5 mmol/L (3.5-5.0)
[2022-01-25 14:13] LABS: PLATELET ESTIMATE, MANUAL NORMAL (130-450,000) (NORMAL); PLATELET MORPHOLOGY NORMAL APPEARANCE (NORMAL); RBC MORPHOLOGY (MULTIPLE) NORMAL APPEARANCE (NORMAL); SLIDE REVIEW? Indicated
--- NOTE | 2022-01-25 14:52 | ANESTHESIA PROCEDURE NOTE ---
Anesthesia Intubation Template - Intubation Blade: positive: Glidescope Tube: Size-enter number (7.5), Cuffed, Marked at teeth-enter cm (23) Route: Oral Placement Confirmation: End tidal CO2, Direct visualization, Bilateral breath sounds Complications: Other Progress Note Asked by ER physician to see patient in room 2206 for respiratory failure requiring intubation. On arrival to patient's room, ventilations assisted by RT with O2 sats in the 60s, patient cyanotic and unresponsive with agonal respirations. Took over airway management and gave a jaw thrust while RT continued to assist respirations with BVM at 100% O2. O2 Sats improved to 80's. VISH Hansen attempted intubation w/o induction drugs and was unsuccessful due to patient responding. Resumed assisting respirations with jaw thrust. Induction drugs prepared (150mg propofol, 140mg succinylcholine, 100mcg fentanyl and 2mg versed) and given. Second attempt revealed grade 1 view, but very anterior with difficulty directing tube to glottic opening. Was able to get the 8.0 ETT tip in, but not advance further. Again ventilations provided with BVM with sats in the 80s. Attempted 3rd time but was unable to direct tube thru cords. Resumed BVM ventilations 100% O2 with sats in 80s. Last attempt by Xin Killian, ALTHEA with 7.5 ETT, was able to place ETT with ETCO2 present and Gerald. Breath sounds. After tube secured by RT, it was noted to be at 19cm. Tube was advanced. Patient continued to desat and required ventilations with BVM to keep O2 sats in the 80s. Patient had high peak pressures when connected to ventilator. Another 100mg propofol and 50mg rocuronium were given to improve ventilation. Chest xray in the ICU revealed ETT tip to be at the glottic opening. Glidescope was used again and the tube was "goose necked" in the oral pharynx with cuff above the cords. Cuff deflated and tube advanced under visualization with the glidescope. ETCO2 positive and RT reported airway pressures improved. Chest xray showed ETT to be appropriately placed. O2 sats improved to low 90s and LOOM FIXER SUPERVISOR/RT assumed care.
--- NOTE | 2022-01-25 14:54 | XRAY Report ---
PROCEDURE: Chest for Line Placement INDICATIONS: Intubated TECHNIQUE: One view of the chest was acquired. COMPARISON: 01/25/2022 FINDINGS: Right IJ central line has been placed in the interval since prior study, with distal tip projecting o jose the inferior aspect of the SVC. Endotracheal tube terminates within the thoracic trachea approxim ately 2.5 cm above the shante. Enteric tube terminates below the diaphragm and outside the field-of-v iew. Mixed interstitial and alveolar airspace opacities redemonstrated. IMPRESSION: Interval placement of right IJ central line in appropriate position. Appropriate position of endotracheal and enteric tubes. Stable airspace opacities. Reviewed by: Denton Reyes MD on 01/25/2022 2:53 PM PDT Approved by: Denton Ryees MD on 01/25/2022 2:53 PM PDT Station ID: [id number]
--- NOTE | 2022-01-25 14:56 | ANESTHESIA PROCEDURE NOTE ---
Anesth Central Line Template - Central Line Central Line Preparation: Unable to obtain consent (Attempted to call next of kin but no answer. Due to critical illness and emergency situation, it was deemed appropriate to proceed.) Central line location: Right IJ Central line type: Triple lumen Central line catheter tip site resides: Superior vena cava (SVC) Central line aftercare: Chlorhexidine disc placed, Secured, Placement confirmed, No pneumothorax, No complications, Pt tolerated well Other Info/Details: Central line placed by VISH Hodges. Full sterile gown, gloves, drape and mask utilized. Right IJ identified under ultrasound. After skin localization (3ml 1% lidocaine), vein was accessed with needle. Wire advanced with ease and dilated. A 20cm triple lumen catheter was inserted over the wire and wire removed. All ports aspirate and flush with ease. Biopatch applied and line sutured in place. Chest x-ray showed tip in the SVC. #20 gauge arterial line placed to left radial artery by VISH Resendez. Single stick with positive blood return. Adequate waveform noted and line zeroed and flushed.
[2022-01-25] MEDS: DEXTROSE 5%-0.9% NACL 1,000 ML IV SCH (14:59)
[2022-01-25 16:35] LABS: ABG BASE EXCESS -2.1 mmol/L (-2.0-3.0); ABG HCO3 22.3 mmol/L (22.0-26.0); ABG PCO2 37 mmHg (34-45); ABG TCO2 23.5 MMOL/L (21.0-29.0)
[2022-01-25 16:37] LABS: ABG OXYGEN SATURATION 99 % (94-98); ABG PO2 154 mmHg (80-100)
[2022-01-25 16:38] LABS: ABG MODE OF VENTILATION ASSIST/CONTROL; ABG RESPIRATORY RATE 24 b/min
[2022-01-25] MEDS: BUDESONIDE 0.5 MG/2 ML NEB INH SCH (18:00)
[2022-01-25] MEDS: IPRATROPIUM/ALBUTEROL 3 ML NEB INH SCH (18:00)
[2022-01-25] MEDS ORDERED: INSULIN REGULAR HUMAN 300 UNIT/3 ML VIAL SUBQ SCH (18:00)
[2022-01-25] MEDS: INSULIN GLARGINE-YFGN 300 UNIT/3 ML PEN SUBQ SCH (20:27)
[2022-01-25] MEDS: FAMOTIDINE 20 MG/2 ML VIAL IVP SCH (20:27)
[2022-01-26] MEDS: MIDAZOLAM DRIP 50 MG/50 ML 50 MG/50 ML BAG IV SCH ×2 (02:51→11:00)
[2022-01-26] MEDS: SODIUM CHLORIDE FLUSH 0.9% 10 ML SYRINGE IVP PRN ×2 (04:22→04:23)
[2022-01-26 04:39] LABS: CALCIUM, IONIZED 1.13 mmol/L (1.15-1.33); VBG PH 7.479 (7.31-7.41)
[2022-01-26 04:47] LABS: BASOPHILS % (AUTO) 0.1 %; CALCIUM 8.4 mg/dL (8.5-10.3); CREATININE 0.8 mg/dL (0.4-1.0); HCT - HEMATOCRIT 34.9 % (37.0-47.0); HGB - HEMOGLOBIN 11.4 g/dL (12.0-16.0); LYMPHOCYTES # (AUTO) 1.4 10^3/uL (1.5-3.5); LYMPHOCYTES % (AUTO) 11.8 %; MEAN CORPUSCULAR HEMOGLOBIN 30.2 pg (27.0-31.0); MEAN CORPUSCULAR HGB CONC 32.7 g/dL (32.0-36.0); MEAN CORPUSCULAR VOLUME 92.6 fL (81.0-99.0); MEAN PLATELET VOLUME 9.8 fL (7.9-10.8); NEUTROPHILS % (AUTO) 78.2 %; PHOSPHORUS 2.4 mg/dL (2.5-4.6); PLT - PLATELET COUNT 237 10^3/uL (130-450); POTASSIUM 3.6 mmol/L (3.5-5.0); RED BLOOD COUNT 3.77 10^6/uL (4.20-5.40); WHITE BLOOD COUNT 11.5 x10^3/uL (4.8-10.8)
[2022-01-26] MEDS: NEUTRA-PHOS 250 MG TABLET PO SCH ×2 (06:02→08:45)
[2022-01-26] MEDS: INSULIN LISPRO 300 UNIT/3 ML PEN SUBQ SCH ×3 (06:16→17:49)
[2022-01-26] MEDS: fentaNYL 2,500 MCG/250 ML 2,500 MCG/250 ML BAG IV SCH (06:25)
[2022-01-26 06:28] LABS: ABG BASE EXCESS 3.4 mmol/L (-2.0-3.0); ABG HCO3 26.8 mmol/L (22.0-26.0); ABG OXYGEN SATURATION 96 % (94-98); ABG PCO2 37 mmHg (34-45); ABG PH 7.48 (7.35-7.45); ABG PO2 80 mmHg (80-100); ABG TCO2 27.9 MMOL/L (21.0-29.0); ALLEN TEST POSITIVE
[2022-01-26 06:29] LABS: ABG MODE OF VENTILATION ASSIST/CONTROL; ABG RESPIRATORY RATE 24 b/min
[2022-01-26] MEDS: BUDESONIDE 0.5 MG/2 ML NEB INH SCH ×2 (07:21→19:10)
[2022-01-26] MEDS: IPRATROPIUM/ALBUTEROL 3 ML NEB INH SCH ×4 (07:24→19:10)
[2022-01-26] MEDS: ASPIRIN CHEW 81 MG TABLET PO SCH (08:40)
[2022-01-26] MEDS: SACCHAROMYCES BOULARDII 250 MG CAPSULE PO SCH ×2 (08:40→17:49)
[2022-01-26] MEDS: FAMOTIDINE 20 MG/2 ML VIAL IVP SCH ×2 (08:45→20:45)
[2022-01-26] MEDS: cefTRIAXone 2 GM in SODIUM CHLORIDE 0.9% MINIBAG 100 ML IV SCH (08:49)
[2022-01-26] MEDS: SODIUM CHLORIDE FLUSH 0.9% 10 ML SYRINGE IVP SCH ×2 (08:50→18:12)
[2022-01-26] MEDS: INSULIN GLARGINE-YFGN 300 UNIT/3 ML PEN SUBQ SCH ×2 (08:52→20:46)
[2022-01-26] MEDS: ENOXAPARIN 40 MG/0.4 ML SYRINGE SUBQ SCH (08:57)
--- NOTE | 2022-01-26 10:05 | PROVIDER PROGRESS NOTE ---
Objective - Vital Signs/Intake & Output Reviewed Vital Signs: Yes Vital Signs: Vital Signs Temp Pulse Pulse Resp BP BP Pulse Ox 01/26/22 09:37 75 01/26/22 09:00 74 20 98/52 L 97 01/26/22 08:00 37.2 C 72 20 100/51 L 96 01/26/22 07:25 70 20 01/26/22 07:00 37.3 C 67 20 96/49 L 51/40 L 96 01/26/22 06:20 65 Intake & Output: Intake & Output 01/23/22 01/24/22 01/25/22 01/26/22 23:59 23:59 23:59 23:59 Intake Total 2381.667 5833.333 1676.158 668.680 Output Total 200 860 535 Balance 2381.667 5633.333 816.158 133.680 - Objective General Appearance: positive: Other ((Exam done remotely) Pt is sedated on Versed & Fentanyl while intubated) Eyes Bilateral: positive: No lid inflammation ENT: positive: Other (ET tube and og tube in place) Neck: positive: Nml inspection (nearly supine in bed) Respiratory: positive: No respiratory distress (on vent and sedate) Cardiovascular: positive: Regular rate & rhythm Abdomen: positive: Other (Obese with pannus) Skin: positive: Warm, Dry Extremities: positive: No pedal edema Neurologic/Psychiatric: positive: Other (sedated in ICU) - Lab Results Fish Bones: 01/26/22 04:25 01/26/22 04:25 Other Labs: Lab Results x24hrs 01/26/22 01/26/22 01/26/22 Range/Units 06:10 04:25 04:25 WBC (4.8-10.8) x10^3/uL RBC (4.20-5.40) 10^6/uL Hgb (12.0-16.0) g/dL Hct (37.0-47.0) % MCV (81.0-99.0) fL MCH (27.0-31.0) pg MCHC (32.0-36.0) g/dL RDW (12.0-15.0) % Plt Count (130-450) 10^3/uL MPV (7.9-10.8) fL Neut # (Auto) (1.5-6.6) 10^3/uL Lymph # (Auto) (1.5-3.5) 10^3/uL [place] # (Auto) (0.0-1.0) 10^3/uL Eos # (Auto) (0.0-0.7) 10^3/uL Baso # (Auto) (0.0-0.1) 10^3/uL Absolute Nucleated RBC x10^3/uL Nucleated RBC % /100WBC Manual Slide Review Platelet Estimate (NORMAL) Platelet Morphology (NORMAL) RBC Morph Micro Appear (NORMAL) Bld Gas Analysis Time 0617 Sample Site RIGHT BRACHIAL ABG pH 7.48 H (7.35-7.45) ABG pCO2 37 (34-45) mmHg ABG pO2 80 (80-100) mmHg ABG HCO3 26.8 H (22.0-26.0) mmol/L ABG Total CO2 27.9 (21.0-29.0) MMOL/L ABG O2 Saturation 96 (94-98) % ABG Base Excess 3.4 H (-2.0-3.0) mmol/L Boo Test POSITIVE VBG pH 7.479 H (7.31-7.41) Ionized Calcium 1.13 L (1.15-1.33) mmol/L Respiration Rate 24 b/min O2 Delivery Device VENTILATOR Vent Mode ASSIST/CONTROL FiO2 80.00 Tidal Volume 450 mL PEEP 10 cmH2O Sodium 140 (135-145) mmol/L Potassium 3.6 (3.5-5.0) mmol/L Chloride 109 (101-111) mmol/L Carbon Dioxide 24 (21-32) mmol/L Anion Gap 7.0 (6-13) BUN 17 (6-20) mg/dL Creatinine 0.8 (0.4-1.0) mg/dL Estimated GFR (MDRD) 71 L (>89) Glucose 273 H (70-100) mg/dL Calcium 8.4 L (8.5-10.3) mg/dL Phosphorus 2.4 L (2.5-4.6) mg/dL Magnesium 2.0 (1.7-2.8) mg/dL Troponin I High Sens (2.3-14.8) ng/L C-Reactive Protein (0-1.0) mg/dL Nasal Screen MRSA (PCR) (NEGATIVE) 01/26/22 01/25/22 01/25/22 Range/Units 04:25 16:25 16:20 WBC 11.5 H (4.8-10.8) x10^3/uL RBC 3.77 L (4.20-5.40) 10^6/uL Hgb 11.4 L (12.0-16.0) g/dL Hct 34.9 L (37.0-47.0) % MCV 92.6 (81.0-99.0) fL MCH 30.2 (27.0-31.0) pg MCHC 32.7 (32.0-36.0) g/dL RDW 15.0 (12.0-15.0) % Plt Count 237 (130-450) 10^3/uL MPV 9.8 (7.9-10.8) fL Neut # (Auto) 9.0 H (1.5-6.6) 10^3/uL Lymph # (Auto) 1.4 L (1.5-3.5) 10^3/uL [place] # (Auto) 1.0 (0.0-1.0) 10^3/uL Eos # (Auto) 0.0 (0.0-0.7) 10^3/uL Baso # (Auto) 0.0 (0.0-0.1) 10^3/uL Absolute Nucleated RBC 0.00 x10^3/uL Nucleated RBC % 0.0 /100WBC Manual Slide Review Platelet Estimate (NORMAL) Platelet Morphology (NORMAL) RBC Morph Micro Appear (NORMAL) Bld Gas Analysis Time 1634 Sample Site A-LINE ABG pH 7.40 (7.35-7.45) ABG pCO2 37 (34-45) mmHg ABG pO2 154 H* (80-100) mmHg ABG HCO3 22.3 (22.0-26.0) mmol/L ABG Total CO2 23.5 (21.0-29.0) MMOL/L ABG O2 Saturation 99 H (94-98) % ABG Base Excess -2.1 L (-2.0-3.0) mmol/L Boo Test NOT APPLICABLE VBG pH (7.31-7.41) Ionized Calcium (1.15-1.33) mmol/L Respiration Rate 24 b/min O2 Delivery Device VENTILATOR Vent Mode ASSIST/CONTROL FiO2 100.00 Tidal Volume 450 mL PEEP 10 cmH2O Sodium (135-145) mmol/L Potassium (3.5-5.0) mmol/L Chloride (101-111) mmol/L Carbon Dioxide (21-32) mmol/L Anion Gap (6-13) BUN (6-20) mg/dL Creatinine (0.4-1.0) mg/dL Estimated GFR (MDRD) (>89) Glucose (70-100) mg/dL Calcium (8.5-10.3) mg/dL Phosphorus (2.5-4.6) mg/dL Magnesium (1.7-2.8) mg/dL Troponin I High Sens 114.1 H* (2.3-14.8) ng/L C-Reactive Protein (0-1.0) mg/dL Nasal Screen MRSA (PCR) (NEGATIVE) 01/25/22 01/25/22 01/25/22 Range/Units 15:00 13:19 13:19 WBC 20.6 H (4.8-10.8) x10^3/uL RBC 4.59 (4.20-5.40) 10^6/uL Hgb 13.9 (12.0-16.0) g/dL Hct 43.6 (37.0-47.0) % MCV 95.0 (81.0-99.0) fL MCH 30.3 (27.0-31.0) pg MCHC 31.9 L (32.0-36.0) g/dL RDW 15.0 (12.0-15.0) % Plt Count 334 (130-450) 10^3/uL MPV 10.1 (7.9-10.8) fL Neut # (Auto) 17.4 H (1.5-6.6) 10^3/uL Lymph # (Auto) 1.2 L (1.5-3.5) 10^3/uL [place] # (Auto) 1.2 H (0.0-1.0) 10^3/uL Eos # (Auto) 0.0 (0.0-0.7) 10^3/uL Baso # (Auto) 0.1 (0.0-0.1) 10^3/uL Absolute Nucleated RBC 0.00 x10^3/uL Nucleated RBC % 0.0 /100WBC Manual Slide Review Indicated Platelet Estimate NORMAL (130-450,000) (NORMAL) Platelet Morphology NORMAL APPEARANCE (NORMAL) RBC Morph Micro Appear NORMAL APPEARANCE (NORMAL) Bld Gas Analysis Time Sample Site ABG pH (7.35-7.45) ABG pCO2 (34-45) mmHg ABG pO2 (80-100) mmHg ABG HCO3 (22.0-26.0) mmol/L ABG Total CO2 (21.0-29.0) MMOL/L ABG O2 Saturation (94-98) % ABG Base Excess (-2.0-3.0) mmol/L Boo Test VBG pH (7.31-7.41) Ionized Calcium (1.15-1.33) mmol/L Respiration Rate b/min O2 Delivery Device Vent Mode FiO2 Tidal Volume mL PEEP cmH2O Sodium 136 (135-145) mmol/L Potassium 4.5 (3.5-5.0) mmol/L Chloride 103 (101-111) mmol/L Carbon Dioxide 20 L (21-32) mmol/L Anion Gap 13.0 (6-13) BUN 17 (6-20) mg/dL Creatinine 0.8 (0.4-1.0) mg/dL Estimated GFR (MDRD) 71 L (>89) Glucose 377 H (70-100) mg/dL Calcium 8.5 (8.5-10.3) mg/dL Phosphorus (2.5-4.6) mg/dL Magnesium (1.7-2.8) mg/dL Troponin I High Sens (2.3-14.8) ng/L C-Reactive Protein 2.2 H (0-1.0) mg/dL Nasal Screen MRSA (PCR) NEGATIVE (NEGATIVE) 01/25/22 01/25/22 Range/Units 13:19 13:10 WBC (4.8-10.8) x10^3/uL RBC (4.20-5.40) 10^6/uL Hgb (12.0-16.0) g/dL Hct (37.0-47.0) % MCV (81.0-99.0) fL MCH (27.0-31.0) pg MCHC (32.0-36.0) g/dL RDW (12.0-15.0) % Plt Count (130-450) 10^3/uL MPV (7.9-10.8) fL Neut # (Auto) (1.5-6.6) 10^3/uL Lymph # (Auto) (1.5-3.5) 10^3/uL [place] # (Auto) (0.0-1.0) 10^3/uL Eos # (Auto) (0.0-0.7) 10^3/uL Baso # (Auto) (0.0-0.1) 10^3/uL Absolute Nucleated RBC x10^3/uL Nucleated RBC % /100WBC Manual Slide Review Platelet Estimate (NORMAL) Platelet Morphology (NORMAL) RBC Morph Micro Appear (NORMAL) Bld Gas Analysis Time 1327 Sample Site A-LINE ABG pH 7.22 L (7.35-7.45) ABG pCO2 54 H (34-45) mmHg ABG pO2 75 L (80-100) mmHg ABG HCO3 21.3 L (22.0-26.0) mmol/L ABG Total CO2 23.0 (21.0-29.0) MMOL/L ABG O2 Saturation 92 L (94-98) % ABG Base Excess -6.9 L (-2.0-3.0) mmol/L Boo Test NOT APPLICABLE VBG pH (7.31-7.41) Ionized Calcium (1.15-1.33) mmol/L Respiration Rate 22 b/min O2 Delivery Device VENTILATOR Vent Mode ASSIST/CONTROL FiO2 100.00 Tidal Volume 450 mL PEEP 10 cmH2O Sodium (135-145) mmol/L Potassium (3.5-5.0) mmol/L Chloride (101-111) mmol/L Carbon Dioxide (21-32) mmol/L Anion Gap (6-13) BUN (6-20) mg/dL Creatinine (0.4-1.0) mg/dL Estimated GFR (MDRD) (>89) Glucose (70-100) mg/dL Calcium (8.5-10.3) mg/dL Phosphorus (2.5-4.6) mg/dL Magnesium (1.7-2.8) mg/dL Troponin I High Sens 131.3 H* (2.3-14.8) ng/L C-Reactive Protein (0-1.0) mg/dL Nasal Screen MRSA (PCR) (NEGATIVE) Assessment/Plan - Problem List (1) Respiratory arrest Impression: Yesterday she went into her second episode of sudden shortness of breath with air hunger and then had a witnessed respiratory arrest. ZARINA MCLEAN was called. She never lost her pulse or rhythm. She was intubated. She is now in the ICU. The etiology appears to be COVID-pneumonia on top of COPD exacerbation. Today the plan is to continue resting her lungs on the vent, no weaning yet and treating the underlying COPD and COVID-pneumonia. She is in critical condition. I informed her friend (the only contact listed in the EMR) about this yesterday, and the friend said she would reach out to the 5 living children. (2) Acute respiratory failure with hypoxia Assessment/Plan: The patient was more SOB yesterday Chest x-ray yesterday showed increased interstitial changes consistent with atypical pneumonia versus CHF. Her BNP is normal today IV fluids had been discontinued in case of CHF/ARDS but now moderate iv rate while not eating Continue respiratory support Continue to treat her underlying COVID-pneumonia, given Deacadron early, and treating a possible community-acquired pneumonia. (3) Pneumonia due to COVID-19 virus Conclusion/Plan: We began treatment for COVID-pneumonia causing hypoxia. Continue remdesivir. Continue Decadron daily IV. (4) COPD exacerbation Conclusion/Plan: She described that she has needed prescriptions for nebulizers in the past "when she gets a bad deep pneumonia", but at admission she claimed she has not been diagnosed with COPD or asthma. In review of this EMR, she had PFTs done 03/27 and was in fact diagnosed with mild COPD Will order scheduled Duonebs, continue with prn inhaled bronchodilator treatments, add inhaled Pulmicort scheduled and she is already on scheduled daily IV Decadron 6mg, after a first dose of 10 mg given in ER. (5) CAP (community acquired pneumonia) Conclusion/Plan: She had no elva lobar infiltrate but we started the patient on empiric antibiotics using ceftriaxone and Zithromax, in case of bronchitis or an infiltrate that would "blossom" with iv fluids Follow WBC daily Follow CXR often (6) Diabetes mellitus Conclusion/Plan: We ordered a carb controlled diet, long-acting insulin and short acting insulin with meals plus ordered hypoglycemia protocol, fingerstick checks and sliding scale insulin coverage. Her A1c came back at 8.4, indicating poor control. Now that she ins intubated and on the vent, will start iv fluids with D5NS and do fingerstick checks q6h. (7) History of coronary artery disease Conclusion/Plan: As per Hx Her troponins after yesterday's respiratory arrest and her EKG yesterday, did not show an acute [place] She is getting her cardiac meds per NG (8) Morbid obesity with BMI of 45-49, in adult Conclusion/Plan: As per Hx. (9) Sepsis Conclusion/Plan: Elevated Lactic Acid at admission, had decreased. Likely related to her current respiratory infection We re-start the patient on IV fluids.
[2022-01-26] MEDS: DEXAMETHASONE 4 MG/ML VIAL IVP SCH (10:14)
[2022-01-26] MEDS: REMDESIVIR 100MG VIAL 100 MG in SODIUM CHLORIDE 0.9% 100ML 100 ML IV SCH (10:14)
[2022-01-26] MEDS: DEXTROSE 5%-0.9% NACL 1,000 ML IV SCH (12:17)
[2022-01-26] MEDS: CHLORHEXIDINE GLUCONATE 15 ML UDC PO SCH ×2 (17:36→20:45)
[2022-01-27] MEDS: INSULIN LISPRO 300 UNIT/3 ML PEN SUBQ SCH ×5 (00:34→23:37)
[2022-01-27] MEDS: SODIUM CHLORIDE FLUSH 0.9% 10 ML SYRINGE IVP SCH ×4 (00:35→23:38)
[2022-01-27] MEDS: fentaNYL 2,500 MCG/250 ML 2,500 MCG/250 ML BAG IV SCH (02:57)
[2022-01-27] MEDS: MIDAZOLAM DRIP 50 MG/50 ML 50 MG/50 ML BAG IV SCH ×4 (03:46→22:17)
[2022-01-27 05:20] LABS: CALCIUM, IONIZED 1.14 mmol/L (1.15-1.33); VBG PH 7.448 (7.31-7.41)
[2022-01-27 05:22] LABS: BASOPHILS % (AUTO) 0.2 %; EOSINOPHILS % (AUTO) 0.1 %; HGB - HEMOGLOBIN 11.8 g/dL (12.0-16.0); LYMPHOCYTES # (AUTO) 2.4 10^3/uL (1.5-3.5); LYMPHOCYTES % (AUTO) 18.6 %; MEAN CORPUSCULAR HEMOGLOBIN 30.6 pg (27.0-31.0); MEAN CORPUSCULAR HGB CONC 32.8 g/dL (32.0-36.0); MEAN CORPUSCULAR VOLUME 93.5 fL (81.0-99.0); MEAN PLATELET VOLUME 10.1 fL (7.9-10.8); MONOCYTES # (AUTO) 1.1 10^3/uL (0.0-1.0); MONOCYTES % (AUTO) 8.8 %; NEUTROPHILS # (AUTO) 9.3 10^3/uL (1.5-6.6); NEUTROPHILS % (AUTO) 71.7 %; PLT - PLATELET COUNT 235 10^3/uL (130-450); RED BLOOD COUNT 3.85 10^6/uL (4.20-5.40); RED CELL DISTRIBUTION WIDTH 15.6 % (12.0-15.0)
[2022-01-27 05:32] LABS: CALCIUM 8.3 mg/dL (8.5-10.3); CREATININE 0.6 mg/dL (0.4-1.0); PHOSPHORUS 2.3 mg/dL (2.5-4.6); POTASSIUM 3.7 mmol/L (3.5-5.0)
[2022-01-27] MEDS: NEUTRA-PHOS 250 MG TABLET PO SCH ×2 (06:21→08:37)
[2022-01-27] MEDS: BUDESONIDE 0.5 MG/2 ML NEB INH SCH ×2 (07:18→17:42)
[2022-01-27] MEDS: IPRATROPIUM/ALBUTEROL 3 ML NEB INH SCH ×4 (07:18→17:42)
[2022-01-27] MEDS: DEXTROSE 5%-0.9% NACL 1,000 ML IV SCH (08:36)
[2022-01-27] MEDS: CHLORHEXIDINE GLUCONATE 15 ML UDC PO SCH ×2 (08:36→20:32)
[2022-01-27] MEDS: ASPIRIN CHEW 81 MG TABLET PO SCH (08:37)
[2022-01-27] MEDS: SACCHAROMYCES BOULARDII 250 MG CAPSULE PO SCH ×2 (08:37→16:55)
[2022-01-27] MEDS: cefTRIAXone 2 GM in SODIUM CHLORIDE 0.9% MINIBAG 100 ML IV SCH (08:38)
[2022-01-27] MEDS: DEXAMETHASONE 4 MG/ML VIAL IVP SCH (08:39)
[2022-01-27] MEDS: FAMOTIDINE 20 MG/2 ML VIAL IVP SCH ×2 (08:39→20:32)
[2022-01-27] MEDS: ENOXAPARIN 40 MG/0.4 ML SYRINGE SUBQ SCH (08:40)
[2022-01-27] MEDS: INSULIN GLARGINE-YFGN 300 UNIT/3 ML PEN SUBQ SCH ×2 (08:41→20:32)
[2022-01-27] MEDS: REMDESIVIR 100MG VIAL 100 MG in SODIUM CHLORIDE 0.9% 100ML 100 ML IV SCH (10:15)
[2022-01-27] MEDS ORDERED: POTASSIUM CHLOR 20 MEQ/100 ML 20 MEQ/100 ML BAG IV ONE (10:44)
--- NOTE | 2022-01-27 14:40 | PROVIDER PROGRESS NOTE ---
Objective - Vital Signs/Intake & Output Reviewed Vital Signs: Yes Vital Signs: Vital Signs Pulse Pulse Resp BP Pulse Ox 01/27/22 12:00 69 20 119/65 95 01/27/22 11:07 68 01/27/22 11:05 67 20 01/27/22 11:00 70 20 116/65 94 Intake & Output: Intake & Output 01/24/22 01/25/22 01/26/22 01/27/22 23:59 23:59 23:59 23:59 Intake Total 5833.333 2026.158 2174.060 1730.487 Output Total 429 603 6792 856 Balance 5633.333 1166.158 638.060 874.487 - Objective General Appearance: positive: Other ((Exam done remotely) Pt sedated, on the vent.) Eyes Bilateral: positive: No lid inflammation ENT: positive: Other (ET tube and og tubes in place) Neck: positive: Other (Obese) Respiratory: positive: No respiratory distress (on a vent) Cardiovascular: positive: Regular rate & rhythm Abdomen: positive: Other (Obese with umbilical ghernia and a pannus) Skin: positive: Warm, Dry Extremities: positive: No pedal edema Neurologic/Psychiatric: positive: Other (Sedated while on a vent) - Lab Results Fish Bones: 01/27/22 05:10 01/27/22 05:10 Other Labs: Lab Results x24hrs 01/27/22 01/27/22 01/27/22 Range/Units 05:10 05:10 05:10 WBC 13.0 H (4.8-10.8) x10^3/uL RBC 3.85 L (4.20-5.40) 10^6/uL Hgb 11.8 L (12.0-16.0) g/dL Hct 36.0 L (37.0-47.0) % MCV 93.5 (81.0-99.0) fL MCH 30.6 (27.0-31.0) pg MCHC 32.8 (32.0-36.0) g/dL RDW 15.6 H (12.0-15.0) % Plt Count 235 (130-450) 10^3/uL MPV 10.1 (7.9-10.8) fL Neut # (Auto) 9.3 H (1.5-6.6) 10^3/uL Lymph # (Auto) 2.4 (1.5-3.5) 10^3/uL [place] # (Auto) 1.1 H (0.0-1.0) 10^3/uL Eos # (Auto) 0.0 (0.0-0.7) 10^3/uL Baso # (Auto) 0.0 (0.0-0.1) 10^3/uL Absolute Nucleated RBC 0.00 x10^3/uL Nucleated RBC % 0.0 /100WBC VBG pH 7.448 H (7.31-7.41) Ionized Calcium 1.14 L (1.15-1.33) mmol/L Sodium 140 (135-145) mmol/L Potassium 3.7 (3.5-5.0) mmol/L Chloride 107 (101-111) mmol/L Carbon Dioxide 25 (21-32) mmol/L Anion Gap 8.0 (6-13) BUN 14 (6-20) mg/dL Creatinine 0.6 (0.4-1.0) mg/dL Estimated GFR (MDRD) 99 (>89) Glucose 242 H (70-100) mg/dL Calcium 8.3 L (8.5-10.3) mg/dL Phosphorus 2.3 L (2.5-4.6) mg/dL Magnesium 2.0 (1.7-2.8) mg/dL Assessment/Plan - Problem List (1) Respiratory arrest Impression: On 01/25, she had sudden shortness of breath with air hunger and then had a wi tnessed respiratory arrest. [facility] was called. She never lost her pulse or rhythm. She was intubated. She is now in the ICU. The etiology appears to be COVID-pneumonia on top of COPD exacerbation. Today the plan is to continue resting her lungs on the vent as we decrease FIO2 and PEEP settings, no CPAP trial yet and treating the underlying COPD and COVID- pneumonia. She is in critical condition. I spoke to her friend Tino Garcia (the only contact listed in the EMR) after the respiratory arrest on 01/25, and in person yesterday at pt's bedside. The friend said she would reach out to the 5 living children. Today, the pt's daughter Koki from [place] arrived and I updated Koki outside the pt's room. (2) Acute respiratory failure with hypoxia Assessment/Plan: Her last chest x-ray showed increased interstitial changes consistent with atypical pneumonia versus CHF. Her BNP was normal Continue respiratory support on a vent, tapering as possible Continue to treat her underlying COVID-pneumonia, COPD exacerbation, and a possible community-acquired pneumonia. (3) On mechanical vent Conclusion/Plan: She is in the ICU. Today the plan is to continue resting her lungs on the vent as we decrease FIO2 and PEEP settings, no CPAP trial yet and treating the underlying COPD and COVID- pneumonia. She is being turned and repositioned, on sedatives iv drip. (4) Pneumonia due to COVID-19 virus Conclusion/Plan: We began treatment for COVID-pneumonia causing hypoxia. She is finishing remdesivir today Continuing Decadron daily IV. (5) COPD exacerbation Conclusion/Plan: She described that she has needed prescriptions for nebulizers in the past "when she gets a bad deep pneumonia", but at admission she claimed she has not been diagnosed with COPD or asthma. In review of this EMR, she had PFTs done 03/2021 and was in fact diagnosed with mild COPD We ordered scheduled Duonebs, inhaled Pulmicort scheduled, and she is already on scheduled daily IV Decadron 6mg, after a first dose of 10 mg given in ER. (6) CAP (community acquired pneumonia) Conclusion/Plan: She had no elva lobar infiltrate but we started the patient on empiric antibiotics using ceftriaxone and Zithromax, in case of bronchitis or an infiltrate that would "blossom" with iv fluids Follow WBC daily Follow CXR often (7) Diabetes mellitus Conclusion/Plan: We had her on a carb controlled diet, long-acting insulin and short acting insulin with meals plus ordered hypoglycemia protocol, fingerstick checks and sliding scale insulin coverage. Her A1c came back at 8.4, indicating poor c ontrol. Now that she is intubated and on the vent, we started iv fluids with D5NS and doing fingerstick checks q6h w/ ss coverage (8) History of coronary artery disease Conclusion/Plan: As per Hx Her troponins after the respiratory arrest and her repeated EKG, did not show an acute [place] She is getting her cardiac meds per NG (9) Morbid obesity with BMI of 45-49, in adult Conclusion/Plan: As per Hx. (10) Sepsis Conclusion/Plan: Elevated Lactic Acid at admission, had decreased. Likely related to her current respiratory infection We re-started the patient on IV fluids while intubated.
[2022-01-27] MEDS: ACETAMINOPHEN 325 MG TABLET PO PRN (20:33)
[2022-01-28] MEDS: fentaNYL 2,500 MCG/250 ML 2,500 MCG/250 ML BAG IV SCH (02:02)
[2022-01-28] MEDS: SODIUM CHLORIDE FLUSH 0.9% 10 ML SYRINGE IVP PRN ×2 (05:22)
[2022-01-28 05:33] LABS: BASOPHILS % (AUTO) 0.1 %; EOSINOPHILS % (AUTO) 0.1 %; HCT - HEMATOCRIT 37.8 % (37.0-47.0); HGB - HEMOGLOBIN 12.1 g/dL (12.0-16.0); LYMPHOCYTES # (AUTO) 2.3 10^3/uL (1.5-3.5); LYMPHOCYTES % (AUTO) 17.8 %; MEAN CORPUSCULAR HEMOGLOBIN 30.6 pg (27.0-31.0); MEAN CORPUSCULAR VOLUME 95.5 fL (81.0-99.0); MEAN PLATELET VOLUME 10.1 fL (7.9-10.8); MONOCYTES % (AUTO) 7.9 %; NEUTROPHILS # (AUTO) 9.5 10^3/uL (1.5-6.6); NEUTROPHILS % (AUTO) 73.5 %; PLT - PLATELET COUNT 245 10^3/uL (130-450); RED BLOOD COUNT 3.96 10^6/uL (4.20-5.40); RED CELL DISTRIBUTION WIDTH 15.6 % (12.0-15.0)
[2022-01-28 05:36] LABS: CALCIUM, IONIZED 1.16 mmol/L (1.15-1.33); VBG PH 7.433 (7.31-7.41)
[2022-01-28] MEDS: ACETAMINOPHEN 325 MG TABLET PO PRN (05:39)
[2022-01-28] MEDS: INSULIN LISPRO 300 UNIT/3 ML PEN SUBQ SCH ×3 (05:43→18:38)
[2022-01-28 05:47] LABS: CALCIUM 8.3 mg/dL (8.5-10.3); CREATININE 0.5 mg/dL (0.4-1.0); MAGNESIUM 1.9 mg/dL (1.7-2.8); PHOSPHORUS 2.7 mg/dL (2.5-4.6)
[2022-01-28] MEDS: MIDAZOLAM DRIP 50 MG/50 ML 50 MG/50 ML BAG IV SCH (06:37)
[2022-01-28] MEDS: DEXTROSE 5%-0.9% NACL 1,000 ML IV SCH (06:38)
[2022-01-28] MEDS: BUDESONIDE 0.5 MG/2 ML NEB INH SCH (07:17)
[2022-01-28] MEDS: IPRATROPIUM/ALBUTEROL 3 ML NEB INH SCH ×3 (07:17→16:09)
[2022-01-28] MEDS: ASPIRIN CHEW 81 MG TABLET PO SCH (08:42)
[2022-01-28] MEDS: DEXAMETHASONE 4 MG/ML VIAL IVP SCH (08:42)
[2022-01-28] MEDS: SACCHAROMYCES BOULARDII 250 MG CAPSULE PO SCH ×2 (08:42→17:25)
[2022-01-28] MEDS: CHLORHEXIDINE GLUCONATE 15 ML UDC PO SCH ×2 (08:42→22:08)
[2022-01-28] MEDS: ENOXAPARIN 40 MG/0.4 ML SYRINGE SUBQ SCH (08:43)
[2022-01-28] MEDS: INSULIN GLARGINE-YFGN 300 UNIT/3 ML PEN SUBQ SCH ×2 (08:43→21:29)
[2022-01-28] MEDS: FAMOTIDINE 20 MG/2 ML VIAL IVP SCH ×2 (08:43→21:26)
[2022-01-28] MEDS: SODIUM CHLORIDE FLUSH 0.9% 10 ML SYRINGE IVP SCH ×2 (08:44→18:39)
[2022-01-28 10:35] LABS: ABG BASE EXCESS -0.8 mmol/L (-2.0-3.0); ABG HCO3 23.3 mmol/L (22.0-26.0); ABG OXYGEN SATURATION 95 % (94-98); ABG PCO2 37 mmHg (34-45); ABG PH 7.42 (7.35-7.45); ABG PO2 76 mmHg (80-100); ABG TCO2 24.5 MMOL/L (21.0-29.0)
[2022-01-28 10:36] LABS: ABG MODE OF VENTILATION SIMV; ALLEN TEST POSITIVE
--- NOTE | 2022-01-28 11:22 | PROVIDER PROGRESS NOTE ---
Subjective - Subjective Subjective: Sedated , intubated this a.m. In the afternoon, she extubated herself, was still somnolent but tolerating O2 per n.c. Objective - Vital Signs/Intake & Output Reviewed Vital Signs: Yes Vital Signs: Vital Signs Temp Pulse Pulse Resp BP Pulse Ox 01/28/22 11:05 73 19 01/28/22 11:00 76 01/28/22 10:00 70 16 138/69 H 97 01/28/22 09:00 77 14 120/65 95 01/28/22 08:31 37.7 C 01/28/22 08:30 68 20 125/66 94 01/28/22 08:00 37.9 C 68 20 116/62 95 01/28/22 07:30 70 20 96 01/28/22 07:22 69 01/28/22 07:19 69 20 Intake & Output: Intake & Output 01/25/22 01/26/22 01/27/22 01/28/22 23:59 23:59 23:59 23:59 Intake Total 2026.158 2174.060 3079.048 379.131 Output Total 860 1536 1731 770 Balance 1166.158 920.148 0948.048 -390.869 - Objective General Appearance: positive: No acute distress (Exam done remotely. Pt sedated on versed and Fentanyl in am. All sedative turned off at 0830. After she self- extubated at 1540, she was comfortable and somnolent) Eyes Bilateral: positive: No lid inflammation ENT: positive: No signs of dehydration Neck: positive: Nml inspection, Other (No stridor) Respiratory: positive: No respiratory distress (on suppl O2) Cardiovascular: positive: Regular rate & rhythm Abdomen: positive: No distention, Other (Obese with a pannus) Skin: positive: Warm, Dry Extremities: positive: Non-tender, Other (Trace pre-tibial edema) Neurologic/Psychiatric: positive: Other (somnolent, moving all extrem spontaneously in the afternoon) - Lab Results Fish Bones: 01/28/22 05:25 01/28/22 05:25 Other Labs: Lab Results x24hrs 01/28/22 01/28/22 01/28/22 Range/Units 10:12 05:25 05:25 WBC (4.8-10.8) x10^3/uL RBC (4.20-5.40) 10^6/uL Hgb (12.0-16.0) g/dL Hct (37.0-47.0) % MCV (81.0-99.0) fL MCH (27.0-31.0) pg MCHC (32.0-36.0) g/dL RDW (12.0-15.0) % Plt Count (130-450) 10^3/uL MPV (7.9-10.8) fL Neut # (Auto) (1.5-6.6) 10^3/uL Lymph # (Auto) (1.5-3.5) 10^3/uL [place] # (Auto) (0.0-1.0) 10^3/uL Eos # (Auto) (0.0-0.7) 10^3/uL Baso # (Auto) (0.0-0.1) 10^3/uL Absolute Nucleated RBC x10^3/uL Nucleated RBC % /100WBC Bld Gas Analysis Time 1020 Sample Site RIGHT RADIAL ABG pH 7.42 (7.35-7.45) ABG pCO2 37 (34-45) mmHg ABG pO2 76 L (80-100) mmHg ABG HCO3 23.3 (22.0-26.0) mmol/L ABG Total CO2 24.5 (21.0-29.0) MMOL/L ABG O2 Saturation 95 (94-98) % ABG Base Excess -0.8 (-2.0-3.0) mmol/L Boo Test POSITIVE VBG pH 7.433 H (7.31-7.41) Ionized Calcium 1.16 (1.15-1.33) mmol/L O2 Delivery Device VENTILATOR Vent Mode SIMV FiO2 35.00 Tidal Volume 450 mL PEEP 5 cmH2O Pressure Support Vent 5 cmH2O Sodium 140 (135-145) mmol/L Potassium 4.0 (3.5-5.0) mmol/L Chloride 107 (101-111) mmol/L Carbon Dioxide 24 (21-32) mmol/L Anion Gap 9.0 (6-13) BUN 14 (6-20) mg/dL Creatinine 0.5 (0.4-1.0) mg/dL Estimated GFR (MDRD) 122 (>89) Glucose 262 H (70-100) mg/dL Calcium 8.3 L (8.5-10.3) mg/dL Phosphorus 2.7 (2.5-4.6) mg/dL Magnesium 1.9 (1.7-2.8) mg/dL 01/28/22 Range/Units 05:25 WBC 13.0 H (4.8-10.8) x10^3/uL RBC 3.96 L (4.20-5.40) 10^6/uL Hgb 12.1 (12.0-16.0) g/dL Hct 37.8 (37.0-47.0) % MCV 95.5 (81.0-99.0) fL MCH 30.6 (27.0-31.0) pg MCHC 32.0 (32.0-36.0) g/dL RDW 15.6 H (12.0-15.0) % Plt Count 245 (130-450) 10^3/uL MPV 10.1 (7.9-10.8) fL Neut # (Auto) 9.5 H (1.5-6.6) 10^3/uL Lymph # (Auto) 2.3 (1.5-3.5) 10^3/uL [place] # (Auto) 1.0 (0.0-1.0) 10^3/uL Eos # (Auto) 0.0 (0.0-0.7) 10^3/uL Baso # (Auto) 0.0 (0.0-0.1) 10^3/uL Absolute Nucleated RBC 0.00 x10^3/uL Nucleated RBC % 0.0 /100WBC Bld Gas Analysis Time Sample Site ABG pH (7.35-7.45) ABG pCO2 (34-45) mmHg ABG pO2 (80-100) mmHg ABG HCO3 (22.0-26.0) mmol/L ABG Total CO2 (21.0-29.0) MMOL/L ABG O2 Saturation (94-98) % ABG Base Excess (-2.0-3.0) mmol/L Boo Test VBG pH (7.31-7.41) Ionized Calcium (1.15-1.33) mmol/L O2 Delivery Device Vent Mode FiO2 Tidal Volume mL PEEP cmH2O Pressure Support Vent cmH2O Sodium (135-145) mmol/L Potassium (3.5-5.0) mmol/L Chloride (101-111) mmol/L Carbon Dioxide (21-32) mmol/L Anion Gap (6-13) BUN (6-20) mg/dL Creatinine (0.4-1.0) mg/dL Estimated GFR (MDRD) (>89) Glucose (70-100) mg/dL Calcium (8.5-10.3) mg/dL Phosphorus (2.5-4.6) mg/dL Magnesium (1.7-2.8) mg/dL Assessment/Plan - Problem List (1) Respiratory arrest Impression: On 01/25, she had sudden shortness of breath with air hunger and then had a witnessed respiratory arrest. ZARINA MCLEAN was called. She never lost her pulse or rhythm. She was intubated. She is now in the ICU. The etiology appears to be COVID-pneumonia on top of COPD exacerbation. Today the plan is to continue trying to decrease ventilator support and treating the underlying COPD and COVID-pneumonia. She was in critical condition. I spoke to her friend Tino Garcia (the only contact listed in the EMR) after the respiratory arrest on 01/25, and in person on 01/26 at pt's bedside. The friend said she would reach out to the 5 living children. The pt's daughter Koki from [place] arrived on 01/27 and I updated Koki outside the pt's room. (2) Acute respiratory failure with hypoxia Assessment/Plan: Her last chest x-ray showed increased interstitial changes consistent with atypical pneumonia versus CHF. Her BNP was normal Continue respiratory support, tapering FIO2 as possible Continue to treat her underlying COVID-pneumonia, COPD exacerbation, and a possible community-acquired pneumonia. (3) On mechanical vent Conclusion/Plan: She is in the ICU, on sedatives iv drip this am. Today the plan is to decrease settings (decrease PEEP, decrease sedation and try SIMV and a CPAP trial). This was done, she was on CPAP at 1500. Her parameters looked good on CPAP with stable vital signs, RR 20. Then at 1540 she self extubated herself. We are also treating the underlying COPD and COVID-pneumonia. She was being turned and repositioned. [facility]. (4) Pneumonia due to COVID-19 virus Conclusion/Plan: We began treatment for COVID-pneumonia causing hypoxia. She has finished 5 days of remdesivir Continuing Decadron daily IV. (5) COPD exacerbation Conclusion/Plan: At admission she described that she has needed prescriptions for nebulizers in the past "when she gets a bad deep pneumonia", but at admission she claimed she has not been diagnosed with COPD or asthma. In review of this EMR, she had PFTs done 03/2021 and was in fact diagnosed with mild COPD We ordered scheduled Duonebs, inhaled Pulmicort scheduled, and she is already on scheduled daily IV Decadron 6mg, after a first dose of 10 mg given in ER. (6) CAP (community acquired pneumonia) Conclusion/Plan: She had no elva lobar infiltrate but we started the patient on empiric antibiotics using ceftriaxone and Zithromax, in case of bronchitis or an infiltrate that might "blossom" with iv fluids Follow WBC daily Follow CXR when needed (7) Diabetes mellitus Conclusion/Plan: We had her on a carb controlled diet, long-acting and short acting insulin with meals plus ordered hypoglycemia protocol, fingerstick checks and sliding scale insulin coverage. Her A1c came back at 8.4, indicating poor control. Now that she is intubated and sedated, we started iv fluids with D5NS and doing fingerstick checks q6h w/ Lantus bid and ss coverage. Will increase Lantus dose somewhat for glu >200's (likely due to steroids). After extubation, will resume a diet, advancing from clear liquids (8) History of coronary artery disease Conclusion/Plan: As per Hx Her troponins after the respiratory arrest and her repeated EKG, did not show an acute WA She was getting her cardiac meds per NG while intubated (9) Morbid obesity with BMI of 45-49, in adult Conclusion/Plan: As per Hx. (10) Sepsis Conclusion/Plan: Elevated Lactic Acid at admission, had decreased. Likely related to her current respiratory infection We re-started the patient on IV fluids while intubated.
[2022-01-29] MEDS: INSULIN LISPRO 300 UNIT/3 ML PEN SUBQ SCH ×5 (00:28→20:43)
[2022-01-29] MEDS: DEXTROSE 5%-0.9% NACL 1,000 ML IV SCH ×2 (03:25→17:24)
[2022-01-29] MEDS: SODIUM CHLORIDE FLUSH 0.9% 10 ML SYRINGE IVP PRN ×2 (05:08)
[2022-01-29] MEDS ORDERED: PHENOL THROAT SPRAY 177 ML MM PRN (05:46)
[2022-01-29] MEDS ORDERED: BENZOCAINE/MENTHOL LOZENGE MM PRN (05:46)
[2022-01-29 05:51] LABS: BASOPHILS % (AUTO) 0.2 %; EOSINOPHILS % (AUTO) 0.1 %; HCT - HEMATOCRIT 40.4 % (37.0-47.0); HGB - HEMOGLOBIN 12.6 g/dL (12.0-16.0); LYMPHOCYTES # (AUTO) 1.9 10^3/uL (1.5-3.5); LYMPHOCYTES % (AUTO) 11.6 %; MEAN CORPUSCULAR HEMOGLOBIN 30.1 pg (27.0-31.0); MEAN CORPUSCULAR HGB CONC 31.2 g/dL (32.0-36.0); MEAN CORPUSCULAR VOLUME 96.4 fL (81.0-99.0); MEAN PLATELET VOLUME 10.5 fL (7.9-10.8); MONOCYTES # (AUTO) 1.4 10^3/uL (0.0-1.0); MONOCYTES % (AUTO) 8.2 %; NEUTROPHILS # (AUTO) 13.2 10^3/uL (1.5-6.6); NEUTROPHILS % (AUTO) 78.9 %; PLT - PLATELET COUNT 256 10^3/uL (130-450); RED BLOOD COUNT 4.19 10^6/uL (4.20-5.40); RED CELL DISTRIBUTION WIDTH 15.5 % (12.0-15.0); WHITE BLOOD COUNT 16.7 x10^3/uL (4.8-10.8)
[2022-01-29 06:06] LABS: CALCIUM 8.6 mg/dL (8.5-10.3); CREATININE 0.5 mg/dL (0.4-1.0); MAGNESIUM 1.8 mg/dL (1.7-2.8); PHOSPHORUS 3.4 mg/dL (2.5-4.6); POTASSIUM 4.1 mmol/L (3.5-5.0)
[2022-01-29] MEDS: SODIUM CHLORIDE FLUSH 0.9% 10 ML SYRINGE IVP SCH ×4 (06:11→20:44)
[2022-01-29] MEDS: BUDESONIDE 0.5 MG/2 ML NEB INH SCH ×3 (08:33→20:00)
[2022-01-29] MEDS: IPRATROPIUM/ALBUTEROL 3 ML NEB INH SCH ×4 (08:33→20:00)
[2022-01-29] MEDS: fentaNYL 2,500 MCG/250 ML 2,500 MCG/250 ML BAG IV SCH (08:53)
[2022-01-29] MEDS: MIDAZOLAM DRIP 50 MG/50 ML 50 MG/50 ML BAG IV SCH (08:54)
[2022-01-29] MEDS: FAMOTIDINE 20 MG/2 ML VIAL IVP SCH ×2 (08:55→20:44)
[2022-01-29] MEDS: DEXAMETHASONE 4 MG/ML VIAL IVP SCH (08:55)
[2022-01-29] MEDS: ASPIRIN CHEW 81 MG TABLET PO SCH (08:55)
[2022-01-29] MEDS: CHLORHEXIDINE GLUCONATE 15 ML UDC PO SCH (08:55)
[2022-01-29] MEDS: SACCHAROMYCES BOULARDII 250 MG CAPSULE PO SCH ×2 (08:55→17:24)
[2022-01-29] MEDS: ENOXAPARIN 40 MG/0.4 ML SYRINGE SUBQ SCH (08:56)
[2022-01-29] MEDS: INSULIN GLARGINE-YFGN 300 UNIT/3 ML PEN SUBQ SCH ×2 (08:56→20:43)
[2022-01-29] MEDS ORDERED: ZINC OXIDE 20% OINT 30 GM TUBE TOP PRN (13:25)
[2022-01-29] MEDS ORDERED: MIN OIL/DIMETHICON/COCONUT OIL 92 GM TUBE TOP PRN (13:25)
--- NOTE | 2022-01-29 14:32 | PROVIDER PROGRESS NOTE ---
Subjective - Prog Note Date Prog Note Date: 01/29/22 Prog Note Time: 14:45 - Subjective Subjective: Her Peridex has been discontinued. Her insulin coverage needs to be changed to carb controlled before meals and at bedtime. She has unfortunately developed some coccyx blisters here. She is very deconditioned. Cough is very weak, ineffective, she can barely sit herself up. Requires quite a bit of help to stand and transfer to the chair She did not report this to me but she told physical therapy she is very lightheaded now. Physical therapy is finding vertigo and nystagmus more with the central deficit as opposed to peripheral deficit. Current Medications - Current Medications Current Medications: Active Medications Acetaminophen (Acetaminophen 325 Mg Tablet) 650 mg PO Q4HR PRN PRN Reason: Pain 1 to 4, or Fever Last Admin: 01/28/22 05:39 Dose: 650 mg Albuterol/Ipratropium (Ipratropium/Albuterol 3 Ml Neb) 3 ml INH Q4HR PRN PRN Reason: Wheezing Albuterol/Ipratropium (Ipratropium/Albuterol 3 Ml Neb) 3 ml INH RTQID [facility] Last Admin: 01/29/22 08:33 Dose: Not Given Aspirin (Aspirin Chew 81 Mg Tablet) 81 mg PO DAILY [facility] Last Admin: 01/29/22 08:55 Dose: 81 mg Budesonide (Budesonide 0.5 Mg/2 Ml Neb) 0.5 mg INH RTBID [facility] Last Admin: 01/29/22 08:33 Dose: Not Given Dexamethasone (Dexamethasone 4 Mg/Ml Vial) 6 mg IVP DAILY [facility] Last Admin: 01/29/22 08:55 Dose: 6 mg Docusate Sodium (Docusate Sodium 250 Mg Capsule) 250 - 500 mg PO DAILY [facility] Enoxaparin Sodium (Enoxaparin 40 Mg/0.4 Ml Syringe) 40 mg SUBQ DAILY [facility] Last Admin: 01/29/22 08:56 Dose: 40 mg Famotidine (Famotidine 20 Mg/2 Ml Vial) 20 mg IVP BID [facility] Last Admin: 01/29/22 08:55 Dose: 20 mg Dextrose/Sodium Chloride (D5ns) 1,000 mls @ 50 mls/hr IV .Q20H [facility] Last Infusion: 01/29/22 05:08 Dose: 50 mls/hr Insulin Glargine-yfgn (Insulin Glargine-Yfgn 300 Unit/3 Ml Pen) 20 unit SUBQ BID [facility] Insulin Human Lispro (Insulin Lispro 300 Unit/3 Ml Pen) 3 - 11 unit SUBQ Q6H [facility]; Protocol Last Admin: 01/29/22 12:16 Dose: 7 unit Mineral Oil (Min Oil/Dimethicon/Coconut Oil 92 Gm Tube) 1 applic TOP PRN PRN PRN Reason: Skin Care Morphine Sulfate (Morphine 2 Mg/Ml Carpuject) 2 mg IVP Q4HR PRN PRN Reason: PAIN Multi-Ingredient Ointment (Zinc Oxide 20% Oint 30 Gm Tube) 1 applic TOP PRN PRN PRN Reason: Skin Care Ondansetron HCl (Ondansetron 4 Mg/2 Ml Vial) 4 mg IVP Q6HR PRN PRN Reason: Nausea / Vomiting Phenol/Menthol (Phenol Throat [place] 177 Ml) 2 sprays MM Q2HR PRN PRN Reason: Throat Pain Last Admin: 01/29/22 06:08 Dose: 2 sprays Polyethylene Glycol (Polyethylene Glycol 3350 17 Gm Packet) 17 gm PO DAILY [facility] Prochlorperazine Edisylate (Prochlorperazine 10 Mg/2 Ml Vial) 10 mg IVP Q6HR PRN PRN Reason: Nausea / Vomiting Saccharomyces Boulardii (Saccharomyces Boulardii 250 Mg Capsule) 250 mg PO BIDWM [facility] Last Admin: 01/29/22 08:55 Dose: 250 mg Senna (Senna 8.6 Mg Tablet) 8.6 - 17.2 mg PO DAILY [facility] Sodium Chloride (Sodium Chloride Flush 0.9% 10 Ml Syringe) 10 ml IVP PRN PRN PRN Reason: NEEDED PER PROVIDER ORDERS Last Admin: 01/28/22 05:22 Dose: 10 ml Sodium Chloride (Sodium Chloride Flush 0.9% 10 Ml Syringe) 10 ml IVP 0100,0900,1700 [facility] Last Admin: 01/29/22 08:56 Dose: 10 ml Sodium Chloride (Sodium Chloride Flush 0.9% 10 Ml Syringe) 10 ml IVP PRN PRN PRN Reason: NEEDED PER PROVIDER ORDERS Last Admin: 01/29/22 05:08 Dose: 10 ml Sodium Chloride (Sodium Chloride Flush 0.9% 10 Ml Syringe) 20 ml IVP PRN PRN PRN Reason: After Blood Draw Last Admin: 01/29/22 05:08 Dose: 20 ml Throat Lozenges (Benzocaine/Menthol Lozenge) 1 lozenge MM Q2HR PRN PRN Reason: Throat pain Last Admin: 01/29/22 08:55 Dose: 1 lozenge Acetaminophen [Tylenol] 650 mg PO Q4HR PRN 12/10/16 Cyanocobalamin (Vitamin B-12) [Vitamin B-12] 1,000 mcg PO BID 12/10/16 Folic Acid 0.4 mg PO DAILY 12/10/16 Ibuprofen [Motrin] 400 - 800 mg PO Q4HR PRN 12/10/16 Metformin HCl [Metformin HCl ER] 1,000 mg PO BID 12/10/16 Ascorbic Acid [Vitamin C] 500 mg PO DAILY 09/29/18 Cholecalciferol (Vitamin D3) [Vitamin D] 4,000 unit PO DAILY 09/29/18 Lactobacillus Acidophilus [Probiotic Acidophilus] 1 each PO DAILY 09/29/18 Insulin Aspart [NovoLOG] 30 unit SQ TID 01/23/22 Insulin Glargine [Lantus Solostar] 46 unit SQ DAILY 01/23/22 Rosuvastatin Calcium [Crestor] 5 mg PO DAILY 01/23/22 Exenatide Microspheres [Bydureon Bcise] 2 mg SQ .WEEKLY 01/24/22 Objective - Vital Signs/Intake & Output Reviewed Vital Signs: Yes Vital Signs: Vital Signs x48h Temp Pulse Pulse Pulse Pulse Resp BP 01/29/22 14:00 73 19 01/29/22 13:00 74 20 01/29/22 12:00 82 26 H 01/29/22 11:10 83 73 99 172/84 H 01/29/22 11:00 78 29 H 01/29/22 10:55 73 99 01/29/22 10:00 36.6 C 78 29 H 01/29/22 09:00 87 22 01/29/22 08:00 79 24 01/29/22 07:00 77 18 BP BP BP Pulse Ox Pulse Ox Pulse Ox Pulse Ox 01/29/22 14:00 179/82 H 96 01/29/22 13:00 172/143 H 96 01/29/22 12:00 183/97 H 92 01/29/22 11:10 172/84 H 154/90 H 93 92 93 01/29/22 11:00 146/84 H 91 L 01/29/22 10:55 172/84 H 154/90 H 01/29/22 10:00 146/84 H 91 L 01/29/22 09:00 113/60 92 01/29/22 08:00 138/79 H 92 01/29/22 07:00 102/74 91 L Pulse Ox Pulse Ox O2 Flow Rate 01/29/22 14:00 6 01/29/22 13:00 6 01/29/22 12:00 6 01/29/22 11:10 01/29/22 11:00 6 01/29/22 10:55 93 93 01/29/22 10:00 6 01/29/22 09:00 6 01/29/22 08:00 6 01/29/22 07:00 6 Intake & Output: Intake & Output 01/26/22 01/27/22 01/28/22 01/29/22 23:59 23:59 23:59 23:59 Intake Total 2174.060 3079.048 814.845 0684.833 Output Total 1536 1731 1970 1250 Balance 607.470 6961.048 -1590.869 -164.167 - Objective General Appearance: positive: No acute distress, Other (Morbidly obese white female, very fatigued, but able to get to her chair using a walker. She is oriented to person and place but very forgetful about any events. Withdrawn affect.) Eyes Bilateral: positive: PERRL, EOMI ENT: positive: No signs of dehydration Neck: positive: No JVD. negative: Stiff neck Respiratory: positive: Wheezes (Are faint and intermittent. Not with every respiration. Scattered.), Rales (Fine COVID crackles at bases and mid lungs. Overall diminished at bases), Other (Breathing is shallow, can get tachypneic with effort, weak cough) Cardiovascular: positive: Regular rate & rhythm, Other (She was hypotensive with her respiratory arrest. She then required Catapres patch to try and control her blood pressure with hydralazine as needed. She is now p.o. and blood pressure varies between 146 systolic and as high as 183 systolic.) Abdomen: positive: Non-tender, Nml bowel sounds, No distention, Other (Large obese pannus) Skin: positive: Warm, Dry, Other (sacrum and coccyx starting to blister) Extremities: positive: Full ROM, Pedal edema Neurologic/Psychiatric: positive: CN's nml (2-12), Motor nml - Lab Results Fish Bones: 01/29/22 05:08 01/29/22 05:08 Other Labs: Lab Results x24hrs 01/29/22 01/29/22 Range/Units 05:08 05:08 WBC 16.7 H (4.8-10.8) x10^3/uL RBC 4.19 L (4.20-5.40) 10^6/uL Hgb 12.6 (12.0-16.0) g/dL Hct 40.4 (37.0-47.0) % MCV 96.4 (81.0-99.0) fL MCH 30.1 (27.0-31.0) pg MCHC 31.2 L (32.0-36.0) g/dL RDW 15.5 H (12.0-15.0) % Plt Count 256 (130-450) 10^3/uL MPV 10.5 (7.9-10.8) fL Neut # (Auto) 13.2 H (1.5-6.6) 10^3/uL Lymph # (Auto) 1.9 (1.5-3.5) 10^3/uL [place] # (Auto) 1.4 H (0.0-1.0) 10^3/uL Eos # (Auto) 0.0 (0.0-0.7) 10^3/uL Baso # (Auto) 0.0 (0.0-0.1) 10^3/uL Absolute Nucleated RBC 0.00 x10^3/uL Nucleated RBC % 0.0 /100WBC Sodium 145 (135-145) mmol/L Potassium 4.1 (3.5-5.0) mmol/L Chloride 110 (101-111) mmol/L Carbon Dioxide 27 (21-32) mmol/L Anion Gap 8.0 (6-13) BUN 16 (6-20) mg/dL Creatinine 0.5 (0.4-1.0) mg/dL Estimated GFR (MDRD) 122 (>89) Glucose 227 H (70-100) mg/dL Calcium 8.6 (8.5-10.3) mg/dL Phosphorus 3.4 (2.5-4.6) mg/dL Magnesium 1.8 (1.7-2.8) mg/dL ABX Reporting Has patient been on IV antibiotics over the past 48 hours?: No Assessment/Plan - Problem List (1) Acute respiratory failure with hypoxia Impression: I am the new hospitalist on service for this female. She presented to our emergency room January 23 with a several day history of coughing, wheezing, and shortness of breath that was present even at rest. She had a remote history of 2 years ago needing a nebulizer with a respiratory infection but had not used it since. She had already been seen in the emergency room the day before and improved with neb treatment and sent home. But on the day of admission she just got worse. In the emergency room she had increased work of breathing with use of accessory muscles and tachypnea. Diffuse wheezing. She was 37.1, heart rate 119, O2 sat 84% on room air. She required 6 L nasal cannula to bring up her O2. White cell count was 22,000. Chest x-ray showed interstitial pneumonia. Lactic acid was elevated at 4.9. She was COVID-positive. She was felt to have sepsis with COPD exacerbation and viral pneumonia. They were worried about community-acquired pneumonia. On 01/25, she had sudden shortness of breath with air hunger and then had a witnessed respiratory arrest. CODE BLUE was called. She never lost her pulse or rhythm. She was intubated and placed in the ICU. The etiology appears to be COVID-pneumonia on top of COPD exacerbation. The hospitalist spoke to her friend Tino Garcia (the only contact listed in the EMR) after the respiratory arrest on 01/25, and in person on 01/26 at pt's bedside. The friend said she would reach out to the 5 living children. The pt's daughter Koki from [place] arrived on 01/27 and the daughter was updated outside the pt's room. Yesterday afternoon, she extubated herself. Was somnolent but tolerating nasal cannula oxygen. She is on DuoNeb, Pulmicort, Decadron,. Remdesivir was completed. 4 days of Rocephin were completed. Her last dose was January 27. Her last chest x-ray showed increased interstitial changes consistent with aty pical pneumonia versus CHF. Her BNP was normal Continue to treat her underlying COVID-pneumonia, COPD exacerbation, and a possible community-acquired pneumonia sequela. (2) Pneumonia due to COVID-19 virus Conclusion/Plan: We began treatment for COVID-pneumonia causing hypoxia. She has finished 5 days of remdesivir Continuing Decadron daily IV for 10 days total. She is Day 10/14 today. (3) COPD exacerbation Conclusion/Plan: At admission she described that she has needed prescriptions for nebulizers in the past "when she gets a bad deep pneumonia", but at admission she claimed she has not been diagnosed with COPD or asthma. In review of this EMR, she had PFTs done 03/2021 and was in fact diagnosed with mild COPD We ordered scheduled Duonebs, inhaled Pulmicort scheduled, and she is already on scheduled daily IV Decadron 6mg, after a first dose of 10 mg given in ER. She has a weak, ineffective cough. She would be at risk of developing yet another pneumonia if she cannot bring up her secretions. Respiratory therapy is working with her with regards to incentive spirometry, and secretion clearance. (4) CAP (community acquired pneumonia) Conclusion/Plan: She had no elva lobar infiltrate but we started the patient on empiric antibiotics using ceftriaxone for 5 days and Zithromax for 3 days, in case of bronchitis or an infiltrate that might "blossom" with iv fluids Follow WBC daily. White cell count is rising. On admission she was 22,000. Had come all the way down to 11.5 thousand on January 26. Today she is 16.7. January 25 chest x-ray had stable airspace opacities and the central line was in place. In view of the rising white cell count (which may be due to to steroids alone) I will repeat chest x-ray. (5) Diabetes mellitus Conclusion/Plan: We had her on a carb controlled diet, long-acting and short acting insulin with meals plus ordered hypoglycemia protocol, fingerstick checks and sliding scale insulin coverage. Her A1c came back at 8.4, indicating poor control. While she was intubated and sedated, we started iv fluids with D5NS and doing fingerstick checks q6h w/ Lantus bid and ss coverage. Her Lantus was increased from 10 units twice daily to 14 units twice daily. At home this patient was on Lantus 46 units. Nutrition services is recommending that we go ahead and keep on increasing her Lantus. Yesterday on the her glucose was 273, 306, 258, and today she is 214, 203, 233. Increase Lantus to 20 units twice daily and continue sliding scale. Change diet to 4 carb choice . (6) sacral pressure changes Nursing will have to document with photos. She is obese and difficult to move. They managed to get her up today. I will order PT/OT (7) central vertigo Per PT they have documented the findings of central vertigo. I will order a CT of head with. Resolved/Chronic problems: (8) History of coronary artery disease Conclusion/Plan: As per Hx Her troponins after the respiratory arrest and her repeated EKG, did not show an acute AL She was getting her cardiac meds per NG while intubated (9) Morbid obesity with BMI of 45-49, in adult Conclusion/Plan: As per Hx. (10) Sepsis Conclusion/Plan: Elevated Lactic Acid at admission, had decreased. Likely related to her current respiratory infection We re-started the patient on IV fluids while intubated.
[2022-01-29] MEDS ORDERED: iohexoL-300 100 ML VIAL ONE (15:45)
--- NOTE | 2022-01-29 17:42 | CT Report ---
PROCEDURE: ANGIO NECK W INDICATIONS: new vertigo, nystagmus, change in vision CONTRAST: IV contrast TECHNIQUE: After the administration of intravenous contrast, 1.5 mm axial sections acquired from the aortic arch to the [place] of [place]. Coronal 3-D maximum intensity projection (MIP) and/or volume rendering ref ormats were then performed. For radiation dose reduction, the following was used: automated exposur e control, adjustment of mA and/or kV according to patient size. COMPARISON: Correlation is made with the accompanying head CT angiogram 01/29/2022. Correlation is a lso made with the prior recent neck CT, 01/22/2022. FINDINGS: Image quality: Excellent. Carotid system: The great vessels demonstrate a conventional anatomy as they arise from the aortic a rch. The origins of the common carotid arteries appear patent. The common carotid arteries demonstr ate normal calibers and courses. The bifurcation regions appear normal bilaterally. The internal ca rotid arteries demonstrate normal caliber and course. Posterior circulation: The origins of the vertebral arteries appear patent. Incidental note is made of a direct origin of the left vertebral artery from the aortic arch, which is considered to be a dev elopmental variant of typically no clinical consequence. The more superior portions of the vertebral arteries demonstrate normal course and caliber. They join to form a normal appearing basilar artery. Soft tissues: A small right-sided pleural effusion is partially seen. Visualized neck soft tissues de monstrate no suspicious abnormalities. The thyroid is normal in size and there are no incidental fin dings. Bones: No suspicious bony lesions. Visualized cervical spine appears normally aligned. At least m oderate lower cervical spine degenerative changes are seen. IMPRESSION: No hemodynamically significant stenosis can be seen within the arteries of the neck. A small right-sided pleural effusion is partially seen. The estimate of stenosis included in the report of the imaging study was calculated using the NASCET method Reviewed by: Jairo Manzo MD on 01/29/2022 4:41 PM MARTI Approved by: Jairo Manzo MD on 01/29/2022 4:41 PM MARTI Station ID: [id number]
--- NOTE | 2022-01-29 17:44 | CT Report ---
PROCEDURE: ANGIO HEAD W/WO INDICATIONS: new vertigo, nystagmus, change in vision CONTRAST: IV contrast TECHNIQUE: Precontrast 4.5 mm thick angled axial sections acquired from the foramen magnum to the vertex. Afte r the administration of intravenous contrast, 1 mm thick sections acquired through the [place] of [place] is. Postcontrast 4.5 mm thick sections then re-acquired from the foramen magnum to the vertex. 3-di mensional rbzogdq-mbmukejzk-ofuwwqzrnk (MIP) and/or volume rendering reformats were acquired of the c entral intracranial vasculature. For radiation dose reduction, the following was used: automated ex posure control, adjustment of mA and/or kV according to patient size. COMPARISON: Correlation is made with the accompanying neck CT angiogram, 01/29/2022. FINDINGS: Image quality: There is streak artifact seen through the skull base. Anterior circulation: Intracranial internal carotid arteries are normal in size and flow. Incidenta l note is made of a fenestrated right A1 segment, which is considered to be a developmental variant o f typically no clinical consequence. The flow within the paired anterior cerebral arteries is otherwi se normal and symmetric. The flow within the middle cerebral arteries is normal and symmetric. The anterior communicating artery is seen. No aneurysms are seen. Posterior circulation: Visualized portions of the vertebral arteries demonstrate normal caliber, and join to form a normal appearing basilar artery. Flow within the posterior cerebral arteries is norm al and symmetric. No aneurysms are seen. CSF spaces: Ventricles are normal in size and shape. Basal cisterns are patent. No extra-axial flu id collections. Brain: No midline shift. No intracranial bleeds or masses. [place]-white matter interface appears int act. Skull and face: Calvarium and facial bones appear intact, without suspicious lesions. Hyperostosis frontalis is incidentally noted, which is not frankly abnormal for a female patient of this age. Sinuses: Air-fluid levels can be seen within the sphenoid sinuses. Visualized sinuses and mastoids a re otherwise clear. IMPRESSION: No significant intracranial arterial abnormality can be seen. No significant intracranial abnormality is seen. Note is made of air-fluid levels within the sphenoid sinuses, which is not considered to be frankly p athologic in a recently intubated patient. Reviewed by: Jairo Manzo MD on 01/29/2022 4:43 PM AKDT Approved by: Jairo Manzo MD on 01/29/2022 4:43 PM MARTI Station ID: [id number]
[2022-01-30] MEDS: SODIUM CHLORIDE FLUSH 0.9% 10 ML SYRINGE IVP PRN ×2 (04:54→12:16)
[2022-01-30 05:37] LABS: CALCIUM, IONIZED 1.22 mmol/L (1.15-1.33); VBG PH 7.362 (7.31-7.41)
[2022-01-30 05:48] LABS: BASOPHILS % (AUTO) 0.1 %; EOSINOPHILS % (AUTO) 0.2 %; LYMPHOCYTES # (AUTO) 2.3 10^3/uL (1.5-3.5); LYMPHOCYTES % (AUTO) 14.8 %; MEAN CORPUSCULAR HGB CONC 31.7 g/dL (32.0-36.0); MEAN CORPUSCULAR VOLUME 94.5 fL (81.0-99.0); MEAN PLATELET VOLUME 10.7 fL (7.9-10.8); MONOCYTES # (AUTO) 1.1 10^3/uL (0.0-1.0); MONOCYTES % (AUTO) 7.2 %; NEUTROPHILS # (AUTO) 11.9 10^3/uL (1.5-6.6); NEUTROPHILS % (AUTO) 76.5 %; PLT - PLATELET COUNT 308 10^3/uL (130-450); RED BLOOD COUNT 4.34 10^6/uL (4.20-5.40); WHITE BLOOD COUNT 15.5 x10^3/uL (4.8-10.8)
[2022-01-30 05:50] LABS: MAGNESIUM 1.8 mg/dL (1.7-2.8); PHOSPHORUS 3.7 mg/dL (2.5-4.6)
[2022-01-30 05:52] LABS: CALCIUM 9.1 mg/dL (8.5-10.3); CREATININE 0.6 mg/dL (0.4-1.0); POTASSIUM 3.6 mmol/L (3.5-5.0)
[2022-01-30] MEDS: BUDESONIDE 0.5 MG/2 ML NEB INH SCH ×2 (07:13→19:16)
[2022-01-30] MEDS: IPRATROPIUM/ALBUTEROL 3 ML NEB INH SCH ×4 (07:13→19:17)
[2022-01-30] MEDS ORDERED: POTASSIUM CHLORIDE 20 MEQ TABLET PO ONE (08:00)
[2022-01-30] MEDS ORDERED: MAGNESIUM OXIDE 400 MG TABLET PO ONE (08:00)
[2022-01-30] MEDS: INSULIN GLARGINE-YFGN 300 UNIT/3 ML PEN SUBQ SCH ×2 (08:53→20:54)
[2022-01-30] MEDS: INSULIN LISPRO 300 UNIT/3 ML PEN SUBQ SCH ×4 (08:56→20:56)
[2022-01-30] MEDS: polyethylene glycoL 3350 17 GM PACKET PO SCH (08:58)
[2022-01-30] MEDS: ASPIRIN CHEW 81 MG TABLET PO SCH (09:01)
[2022-01-30] MEDS: SACCHAROMYCES BOULARDII 250 MG CAPSULE PO SCH ×2 (09:01→17:15)
[2022-01-30] MEDS: SENNA 8.6 MG TABLET PO SCH (09:01)
[2022-01-30] MEDS: DOCUSATE SODIUM 250 MG CAPSULE PO SCH (09:01)
[2022-01-30] MEDS: DEXAMETHASONE 4 MG/ML VIAL IVP SCH (09:06)
[2022-01-30] MEDS: FAMOTIDINE 20 MG/2 ML VIAL IVP SCH (09:08)
[2022-01-30] MEDS: SODIUM CHLORIDE FLUSH 0.9% 10 ML SYRINGE IVP SCH ×2 (09:11→17:15)
[2022-01-30] MEDS: ENOXAPARIN 40 MG/0.4 ML SYRINGE SUBQ SCH (09:18)
[2022-01-30] MEDS: DEXTROSE 5%-0.9% NACL 1,000 ML IV SCH (14:31)
--- NOTE | 2022-01-30 15:33 | PROVIDER PROGRESS NOTE ---
Subjective - Prog Note Date Prog Note Date: 01/30/22 Prog Note Time: 15:30 - Subjective Pt reports feeling: Improved Subjective: Anesthesia came by to check up on the patient. This was the anesthesiologist who intubated the patient during the patient's respiratory arrest. The patient was described as cyanotic, unresponsive with a pulse and a pressure. It was gratifying, per anesthesia, to see the patient up and about. She is still short of breath, still coughing. But she is needing less and less oxygen. Her main complaint is fatigue. Current Medications - Current Medications Current Medications: Active Medications Acetaminophen (Acetaminophen 325 Mg Tablet) 650 mg PO Q4HR PRN PRN Reason: Pain 1 to 4, or Fever Last Admin: 01/28/22 05:39 Dose: 650 mg Albuterol/Ipratropium (Ipratropium/Albuterol 3 Ml Neb) 3 ml INH Q4HR PRN PRN Reason: Wheezing Albuterol/Ipratropium (Ipratropium/Albuterol 3 Ml Neb) 3 ml INH RTQID [facility] [place] Last Admin: 01/30/22 15:11 Dose: 3 ml Aspirin (Aspirin Chew 81 Mg Tablet) 81 mg PO DAILY [facility] Last Admin: 01/30/22 09:01 Dose: 81 mg Budesonide (Budesonide 0.5 Mg/2 Ml Neb) 0.5 mg INH RTBID [facility] [place] Last Admin: 01/30/22 07:13 Dose: 0.5 mg Dexamethasone (Dexamethasone 4 Mg Tablet) 6 mg PO DAILY [facility] Stop: 02/01/22 12:00 Docusate Sodium (Docusate Sodium 250 Mg Capsule) 250 - 500 mg PO DAILY [facility] Last Admin: 01/30/22 09:01 Dose: 250 mg Enoxaparin Sodium (Enoxaparin 40 Mg/0.4 Ml Syringe) 40 mg SUBQ DAILY [facility] Last Admin: 01/30/22 09:18 Dose: 40 mg Famotidine (Famotidine 20 Mg Tablet) 20 mg PO BID [facility] Insulin Glargine-yfgn (Insulin Glargine-Yfgn 300 Unit/3 Ml Pen) 24 unit SUBQ BID [facility] Insulin Human Lispro (Insulin Lispro 300 Unit/3 Ml Pen) 3 - 11 unit SUBQ 0800,1200,1700,2100 [facility]YA; Protocol Last Admin: 01/30/22 12:16 Dose: 9 unit Mineral Oil (Min Oil/Dimethicon/Coconut Oil 92 Gm Tube) 1 applic TOP PRN PRN PRN Reason: Skin Care Morphine Sulfate (Morphine 2 Mg/Ml Carpuject) 2 mg IVP Q4HR PRN PRN Reason: PAIN Multi-Ingredient Ointment (Zinc Oxide 20% Oint 30 Gm Tube) 1 applic TOP PRN PRN PRN Reason: Skin Care Ondansetron HCl (Ondansetron 4 Mg/2 Ml Vial) 4 mg IVP Q6HR PRN PRN Reason: Nausea / Vomiting Phenol/Menthol (Phenol Throat [place] 177 Ml) 2 sprays MM Q2HR PRN PRN Reason: Throat Pain Last Admin: 01/29/22 06:08 Dose: 2 sprays Polyethylene Glycol (Polyethylene Glycol 3350 17 Gm Packet) 17 gm PO DAILY [facility] [place] Last Admin: 01/30/22 08:58 Dose: 17 gm Prochlorperazine Edisylate (Prochlorperazine 10 Mg/2 Ml Vial) 10 mg IVP Q6HR PRN PRN Reason: Nausea / Vomiting Saccharomyces Boulardii (Saccharomyces Boulardii 250 Mg Capsule) 250 mg PO BI [facility] Last Admin: 01/30/22 09:01 Dose: 250 mg Senna (Senna 8.6 Mg Tablet) 8.6 - 17.2 mg PO DAILY [facility] Last Admin: 01/30/22 09:01 Dose: 8.6 mg Sodium Chloride (Sodium Chloride Flush 0.9% 10 Ml Syringe) 10 ml IVP PRN PRN PRN Reason: NEEDED PER PROVIDER ORDERS Last Admin: 01/28/22 05:22 Dose: 10 ml Sodium Chloride (Sodium Chloride Flush 0.9% 10 Ml Syringe) 10 ml IVP 0100,0900,1700 [facility] Last Admin: 01/30/22 09:11 Dose: 20 ml Sodium Chloride (Sodium Chloride Flush 0.9% 10 Ml Syringe) 10 ml IVP PRN PRN PRN Reason: NEEDED PER PROVIDER ORDERS Last Admin: 01/30/22 12:16 Dose: 10 ml Sodium Chloride (Sodium Chloride Flush 0.9% 10 Ml Syringe) 20 ml IVP PRN PRN PRN Reason: After Blood Draw Last Admin: 01/30/22 04:54 Dose: 20 ml Throat Lozenges (Benzocaine/Menthol Lozenge) 1 lozenge MM Q2HR PRN PRN Reason: Throat pain Last Admin: 01/29/22 08:55 Dose: 1 lozenge Acetaminophen [Tylenol] 650 mg PO Q4HR PRN 12/10/16 Cyanocobalamin (Vitamin B-12) [Vitamin B-12] 1,000 mcg PO BID 12/10/16 Folic Acid 0.4 mg PO DAILY 12/10/16 Ibuprofen [Motrin] 400 - 800 mg PO Q4HR PRN 12/10/16 Metformin HCl [Metformin HCl ER] 1,000 mg PO BID 12/10/16 Ascorbic Acid [Vitamin C] 500 mg PO DAILY 09/29/18 Cholecalciferol (Vitamin D3) [Vitamin D] 4,000 unit PO DAILY 09/29/18 Lactobacillus Acidophilus [Probiotic Acidophilus] 1 each PO DAILY 09/29/18 Insulin Aspart [NovoLOG] 30 unit SQ TID 01/23/22 Insulin Glargine [Lantus Solostar] 46 unit SQ DAILY 01/23/22 Rosuvastatin Calcium [Crestor] 5 mg PO DAILY 01/23/22 Exenatide Microspheres [Bydureon Bcise] 2 mg SQ .WEEKLY 01/24/22 Objective - Vital Signs/Intake & Output Reviewed Vital Signs: Yes Vital Signs: Vital Signs x48h Temp Pulse Pulse Resp BP Pulse Ox O2 Flow Rate 01/30/22 15:13 75 20 01/30/22 12:00 37.2 C 85 21 147/70 H 92 01/30/22 11:10 73 18 01/30/22 11:00 76 21 138/81 H 97 01/30/22 10:00 74 20 128/101 H 98 6 01/30/22 09:00 89 19 197/84 H 97 6 01/30/22 08:00 36.8 C 90 24 184/84 H 99 6 Intake & Output: Intake & Output 01/27/22 01/28/22 01/29/22 01/30/22 23:59 23:59 23:59 23:59 Intake Total 3079.048 410.914 1787.166 1999 Output Total 1731 1970 1950 365 Balance 1348.048 -1590.869 -887.280 8740 - Objective General Appearance: positive: No acute distress, Alert Eyes Bilateral: positive: PERRL, EOMI ENT: positive: No signs of dehydration Neck: positive: No JVD. negative: Stiff neck Respiratory: positive: No respiratory distress, Rales (fine crackles diffusely). negative: Wheezes, Rhonchi Cardiovascular: positive: Regular rate & rhythm Abdomen: positive: Non-tender, No organomegaly, Nml bowel sounds, No distention Skin: positive: Warm, Dry Extremities: positive: No pedal edema Neurologic/Psychiatric: positive: Oriented x3, CN's nml (2-12), Motor nml - Lab Results Fish Bones: 01/30/22 05:00 01/30/22 05:00 Other Labs: Lab Results x24hrs 01/30/22 01/30/22 01/30/22 Range/Units 05:00 05:00 05:00 WBC (4.8-10.8) x10^3/uL RBC (4.20-5.40) 10^6/uL Hgb (12.0-16.0) g/dL Hct (37.0-47.0) % MCV (81.0-99.0) fL MCH (27.0-31.0) pg MCHC (32.0-36.0) g/dL RDW (12.0-15.0) % Plt Count (130-450) 10^3/uL MPV (7.9-10.8) fL Neut # (Auto) (1.5-6.6) 10^3/uL Lymph # (Auto) (1.5-3.5) 10^3/uL [place] # (Auto) (0.0-1.0) 10^3/uL Eos # (Auto) (0.0-0.7) 10^3/uL Baso # (Auto) (0.0-0.1) 10^3/uL Absolute Nucleated RBC x10^3/uL Nucleated RBC % /100WBC VBG pH 7.362 (7.31-7.41) Ionized Calcium 1.22 (1.15-1.33) mmol/L Sodium 141 (135-145) mmol/L Potassium 3.6 (3.5-5.0) mmol/L Chloride 105 (101-111) mmol/L Carbon Dioxide 27 (21-32) mmol/L Anion Gap 9.0 (6-13) BUN 17 (6-20) mg/dL Creatinine 0.6 (0.4-1.0) mg/dL Estimated GFR (MDRD) 99 (>89) Glucose 259 H (70-100) mg/dL Calcium 9.1 (8.5-10.3) mg/dL Phosphorus 3.7 (2.5-4.6) mg/dL Magnesium 1.8 (1.7-2.8) mg/dL 01/30/22 Range/Units 05:00 WBC 15.5 H (4.8-10.8) x10^3/uL RBC 4.34 (4.20-5.40) 10^6/uL Hgb 13.0 (12.0-16.0) g/dL Hct 41.0 (37.0-47.0) % MCV 94.5 (81.0-99.0) fL MCH 30.0 (27.0-31.0) pg MCHC 31.7 L (32.0-36.0) g/dL RDW 15.0 (12.0-15.0) % Plt Count 308 (130-450) 10^3/uL MPV 10.7 (7.9-10.8) fL Neut # (Auto) 11.9 H (1.5-6.6) 10^3/uL Lymph # (Auto) 2.3 (1.5-3.5) 10^3/uL [place] # (Auto) 1.1 H (0.0-1.0) 10^3/uL Eos # (Auto) 0.0 (0.0-0.7) 10^3/uL Baso # (Auto) 0.0 (0.0-0.1) 10^3/uL Absolute Nucleated RBC 0.00 x10^3/uL Nucleated RBC % 0.0 /100WBC VBG pH (7.31-7.41) Ionized Calcium (1.15-1.33) mmol/L Sodium (135-145) mmol/L Potassium (3.5-5.0) mmol/L Chloride (101-111) mmol/L Carbon Dioxide (21-32) mmol/L Anion Gap (6-13) BUN (6-20) mg/dL Creatinine (0.4-1.0) mg/dL Estimated GFR (MDRD) (>89) Glucose (70-100) mg/dL Calcium (8.5-10.3) mg/dL Phosphorus (2.5-4.6) mg/dL Magnesium (1.7-2.8) mg/dL Assessment/Plan - Problem List (1) Acute respiratory failure with hypoxia Impression: I am the new hospitalist on service 01/29 for this female. She presented to our emergency room January 23 with a several day history of coughing, wheezing, and shortness of breath that was present even at rest. She had a remote history of 2 years ago needing a nebulizer with a respiratory infection but had not used it since. She had already been seen in the emergency room the day before and improved with neb treatment and sent home. But on the day of admission she just got worse. In the emergency room she had increased work of breathing with use of accessory muscles and tachypnea. Diffuse wheezing. She was 37.1, heart rate 119, O2 sat 84% on room air. She required 6 L nasal cannula to bring up her O2. White cell count was 22,000. Chest x-ray showed interstitial pneumonia. Lactic acid was elevated at 4.9. She was COVID-positive. She was felt to have sepsis with COPD exacerbation and viral pneumonia. They were worried about community-acquired pneumonia. On 01/25, she had sudden shortness of breath with air hunger and then had a wi tnessed respiratory arrest. ZARINA MCLEAN was called. She never lost her pulse or rhythm. She was intubated and placed in the ICU. The etiology appears to be COVID-pneumonia on top of COPD exacerbation. The hospitalist spoke to her friend Tino Garcia (the only contact listed in the EMR) after the respiratory arrest on 01/25, and in person on 01/26 at pt's bedside. The friend said she would reach out to the 5 living children. The pt's daughter Koki from [place] arrived on 01/27 and the daughter was updated outside the pt's room. 01/28 afternoon, she extubated herself. Was somnolent but tolerating nasal cannula oxygen. She is on DuoNeb, Pulmicort, Decadron,. Remdesivir was completed. 4 days of Rocephin were completed. Her last dose was January 27. Her last chest x-ray showed increased interstitial changes consistent with atypical pneumonia versus CHF. Her BNP was normal On 2 L nasal cannula she is 98% saturated. On room air she is 92% saturated. Continue to treat her underlying COVID-pneumonia, COPD exacerbation, and a possible community-acquired pneumonia sequela. I would anticipate discharge possibly as early as tomorrow but she may need physical rehab before safe dc to home. Transfer to [facility] Surg Status from ICU status today. (2) Pneumonia due to COVID-19 virus Conclusion/Plan: We began treatment for COVID-pneumonia causing hypoxia. She has finished 5 days of remdesivir Continuing Decadron daily IV for 10 days total. She is Day 11/14 today. Change IV to po. She will be out of isolation by 02/01. Today she was able to do sit to stand with a front wheel walker and standby assist and was able to do it twice. She is able to perform standing small marches x5. O2 sat remained above 95%. She walked 30 feet and needed a 15- second break before coming back. Her gait pattern was notable for reduced mehul, flatfoot contact and reduced push off the BL. Dizziness better today than it was yesterday. O2 sat at the end of gait training was 92% and increased to 95% with rest. They do feel she would benefit from continued rehab to address mobility deficits, activity tolerance and balance. They recommend discharge to SNF with continued rehab in order to return to prior living environment where she lives alone. (3) COPD exacerbation Conclusion/Plan: At admission she described that she has needed prescriptions for nebulizers in the past "when she gets a bad deep pneumonia", but at admission she claimed she has not been diagnosed with COPD or asthma. In review of this EMR, she had PFTs done 03/2021 and was in fact diagnosed with mild COPD We ordered scheduled Duonebs, inhaled Pulmicort scheduled, and she is already on scheduled daily IV Decadron 6mg, after a first dose of 10 mg given in ER. She has a weak, ineffective cough. She would be at risk of developing yet another pneumonia if she cannot bring up her secretions. Respiratory therapy is working with her with regards to incentive spirometry, and secretion clearance. If she remains stable on RA today, will plan for dc in am. (4) CAP (community acquired pneumonia) Conclusion/Plan: She had no elva lobar infiltrate but we started the patient on empiric antibiotics using ceftriaxone for 5 days and Zithromax for 3 days, in case of bronchitis or an infiltrate that might "blossom" with iv fluids Follow WBC daily. White cell count is rising. On admission she was 22,000. Had come all the way down to 11.5 thousand on January 26. 01/29 she was 16.7. January 25 chest x-ray had stable airspace opacities and the central line was in place. In view of the rising white cell count (which may be due to to steroids alone) I thought about repeating cxr but decided not to. Today, improved clinically, so no CXR. (5) Diabetes mellitus Conclusion/Plan: We had her on a carb controlled diet, long-acting and short acting insulin with meals plus ordered hypoglycemia protocol, fingerstick checks and sliding scale insulin coverage. Her A1c came back at 8.4, indicating poor control. While she was intubated and sedated, we started iv fluids with D5NS and doing fingerstick checks q6h w/ Lantus bid and ss coverage. Her Lantus was increased from 10 units twice daily to 14 units twice daily. At home this patient was on Lantus 46 units. Nutrition services is recommending that we go ahead and keep on increasing her Lantus. On the her glucose was 273, 306, 258, and 01/29 she was 214, 203, 233. I Increased Lantus to 20 units twice daily and continued sliding scale. Changed diet to 4 carb choice . Today glucoses 226 and 295 in spite of that increase. I will increase lantus to 24 units twice a day. She will complete Decadron on February 01. We will need to watch her glucose closely then because she may drop and become hypoglycemic after steroids (6) sacral pressure changes Nursing will have to document with photos. She is obese and difficult to move. They managed to get her up 01/29 PT/OT working with her. (7) central vertigo CT of the head with angiogram shows no acute changes. No stroke, no clinically significant stenosis Resolved/Chronic problems: (8) History of coronary artery disease Conclusion/Plan: As per Hx Her troponins after the respiratory arrest and her repeated EKG, did not show an acute OK She was getting her cardiac meds per NG while intubated (9) Morbid obesity with BMI of 45-49, in adult Conclusion/Plan: As per Hx. (10) Sepsis Conclusion/Plan: Elevated Lactic Acid at admission, had decreased. Likely related to her current respiratory infection We re-started the patient on IV fluids while intubated.
[2022-01-30] MEDS: FAMOTIDINE 20 MG TABLET PO SCH (20:53)
[2022-01-31] MEDS: ACETAMINOPHEN 325 MG TABLET PO PRN ×4 (00:48→12:38)
[2022-01-31] MEDS: SODIUM CHLORIDE FLUSH 0.9% 10 ML SYRINGE IVP SCH ×2 (00:50→08:23)
[2022-01-31 05:17] LABS: BASOPHILS % (AUTO) 0.1 %; CALCIUM, IONIZED 1.17 mmol/L (1.15-1.33); EOSINOPHILS # (AUTO) 0.1 10^3/uL (0.0-0.7); EOSINOPHILS % (AUTO) 0.4 %; HCT - HEMATOCRIT 40.8 % (37.0-47.0); HGB - HEMOGLOBIN 13.2 g/dL (12.0-16.0); LYMPHOCYTES # (AUTO) 2.8 10^3/uL (1.5-3.5); LYMPHOCYTES % (AUTO) 20.8 %; MEAN CORPUSCULAR HEMOGLOBIN 30.1 pg (27.0-31.0); MEAN CORPUSCULAR HGB CONC 32.4 g/dL (32.0-36.0); MEAN CORPUSCULAR VOLUME 93.2 fL (81.0-99.0); MEAN PLATELET VOLUME 10.7 fL (7.9-10.8); MONOCYTES # (AUTO) 1.2 10^3/uL (0.0-1.0); MONOCYTES % (AUTO) 8.6 %; NEUTROPHILS # (AUTO) 9.3 10^3/uL (1.5-6.6); NEUTROPHILS % (AUTO) 68.8 %; PLT - PLATELET COUNT 324 10^3/uL (130-450); RED BLOOD COUNT 4.38 10^6/uL (4.20-5.40); RED CELL DISTRIBUTION WIDTH 15.2 % (12.0-15.0); VBG PH 7.394 (7.31-7.41); WHITE BLOOD COUNT 13.5 x10^3/uL (4.8-10.8)
[2022-01-31 05:31] LABS: CALCIUM 8.9 mg/dL (8.5-10.3); CREATININE 0.5 mg/dL (0.4-1.0); MAGNESIUM 1.8 mg/dL (1.7-2.8); PHOSPHORUS 3.5 mg/dL (2.5-4.6); POTASSIUM 3.2 mmol/L (3.5-5.0)
[2022-01-31] MEDS: BUDESONIDE 0.5 MG/2 ML NEB INH SCH (07:48)
[2022-01-31] MEDS: IPRATROPIUM/ALBUTEROL 3 ML NEB INH SCH ×2 (07:48→11:32)
[2022-01-31] MEDS ORDERED: POTASSIUM CHLORIDE 20 MEQ TABLET PO SCH (08:00)
[2022-01-31] MEDS: SACCHAROMYCES BOULARDII 250 MG CAPSULE PO SCH (08:21)
[2022-01-31] MEDS: DOCUSATE SODIUM 250 MG CAPSULE PO SCH (08:22)
[2022-01-31] MEDS: ASPIRIN CHEW 81 MG TABLET PO SCH (08:22)
[2022-01-31] MEDS: ENOXAPARIN 40 MG/0.4 ML SYRINGE SUBQ SCH (08:22)
[2022-01-31] MEDS: FAMOTIDINE 20 MG TABLET PO SCH (08:22)
[2022-01-31] MEDS: polyethylene glycoL 3350 17 GM PACKET PO SCH (08:22)
[2022-01-31] MEDS: SENNA 8.6 MG TABLET PO SCH (08:22)
[2022-01-31] MEDS: INSULIN LISPRO 300 UNIT/3 ML PEN SUBQ SCH ×2 (08:24→12:05)
[2022-01-31] MEDS: INSULIN GLARGINE-YFGN 300 UNIT/3 ML PEN SUBQ SCH (08:24)
[2022-01-31] MEDS ORDERED: dexAMETHasone 4 MG TABLET PO SCH (09:00)
[2022-01-31] MEDS ORDERED: ZINC OXIDE 20% OINT 30 GM TUBE TOP PRN (10:23)
--- NOTE | 2022-01-31 10:42 | Discharge Plan ---
Discharge Plan Problem Reviewed?: Yes Disposition: 61 Swing Bed DC/Xfer Condition: Stable Diet: Diabetic Activity Restrictions: Activity as Tolerated Shower Restrictions: No Driving Restrictions: No Assistance Devices: Walker No Smoking: If you smoke, Please STOP! Call for help. Follow-up with: Dona Sosa ARNP [Primary Care Provider] -
--- NOTE | 2022-01-31 10:51 | DISCHARGE SUMMARY ---
Discharge Summary Admit Date: 01/23/22 Discharge Date: 01/31/22 Discharging Provider: Joana Larson Md Primary Care Provider: JUNG Tom Code Status: Attempt Resuscitation Condition at Discharge: Stable Discharge Disposition: 61 Swing Bed DC/Xfer - DIAGNOSES Discharge Diagnoses with Status of Each Condition: 1. Pneumonia due to COVID-19 virus 2. Acute respiratory failure with hypoxia 3. Respiratory arrest 4. COPD exacerbation 5. Community-acquired pneumonia 6. Type 2 diabetes mellitus, without complications, with long-term use of insu sharmila. 7. Sacral pressure changes, not present on admission 8. Central vertigo 9. History of coronary artery disease 10. Morbid obesity with BMI of 45-49 11. Lactic acidosis due to metformin - HPI History of Present Illness: This is a 71-year-old white female with a history of CAD, past history of a COPD exacerbation but no longer on nebulizers, diabetes on metformin. The patient developed shortness of breath with cough and upper respiratory including nasal congestion for 2 days. With this she came to the ER yesterday when she had shortness of breath and air hunger including stridor. She underwent a CT of the neck then, got nebulizers, steroid and had improvement, no findings of obstruction found on neck imaging. Her chest x-ray showed diffuse hazy congestion, her BNP was normal at 87 however and her wheezing improved therefore she was discharged home with presumptive diagnosis of viral pneumonitis. Then today she presented back to the emergency room with worsening cough with sputum production, worsening shortness of breath but the stridor was no longer present. She had documented oxygen desaturations of 84% on room air in the ED. She received nebulizers and started on supplemental oxygen. Chest x-ray shows worsening haziness consistent with interstitial pneumonia. Her white count which was 12 yesterday has increased to 22 today (but she did get Solu-Medrol yesterday). Her lactic acid level is elevated at 4.9. Her viral screen shows that she has COVID-positive results. The patient herself reports she is not short of breath but is wearing nasal cannula supplemental oxygen. She says there is minimal sputum production. She reports no fever, diarrhea or abdominal upset. She says that in the ER she was told that her "chest was clear yesterday and today" and is surprised she has Covid pneumonia, because she has tried to be careful to prevent getting it. The patient is being admitted to the Hospitalist service for community-acquired pneumonia, COVID-pneumonia, and sepsis with a COPD exacerbation. I discussed her CODE CARIDAD wishes and she wants to be a Full Code, including intubation and being on the ventilator, if needed. - Past Medical History Cardiovascular: reports: Hypertension, High cholesterol, Coronary artery disease Respiratory: reports: Asthma, Sleep apnea (She does not use her CPAP machine because it blows air into her tear duct where she has a stent on the L, which causes bubbling and dry eye) Neuro: reports: None Endocrine/Autoimmune: reports: Type 2 diabetes GI: reports: GERD : reports: None HEENT: reports: None Psych: reports: Depression, Anxiety, ADD/ADHD Musculoskeletal: reports: Osteoarthritis, Fibromyalgia Derm: reports: None MRSA Hx?: No - Past Surgical History General: reports: Colonoscopy Ortho: reports: Carpal Tunnel surgery, Other HEENT: reports: Other - CONSULTS | PROCEDURES Procedures: 4 chest x-rays done between January 23 and January 25. A right IJ was placed. There was no pneumothorax. She had cardiomegaly compatible with pulmonary edema or viral pneumonia. She was described as having persistent diffuse interstitial prominence with [place] vascular distinctness and pulmonary vascular congestion. No focal consolidation seen. Suspected small pleural effusion. Neck and head CT angiogram were done for central vertigo. There is no clinicall y significant stenosis seen within the arteries of the neck or head. A small right pleural effusion was seen. Brain was without midline shift, bleeds or masses and the sellers-white matter interface appeared intact. She had air-fluid levels within the sphenoid sinuses. Blood cultures negative from January 23 - HOSPITAL COURSE Hospital Course: She was felt to have sepsis that was due to her current respiratory infection. She had good clinical response and that lactic acid slowly decreased with IV antibiotics and fluids. However in retrospect, this hospitalist feels that her lactic acidosis may have been due to the use of metformin and not true sepsis. She was treated with remdesivir for her COVID-pneumonia, and empiric antibiotic therapy using ceftriaxone and Zithromax. COPD was quite severe and she ended up having a respiratory arrest where she maintained a pulse and a pressure but was cyanotic and blue. She was intubated and transferred to the ICU. She self extubated herself on October 24. She had good but slow recovery. She was deejay rely fatigued, generalized weakness, and work with physical therapy and Occupational Therapy. She did not complain to this hospitalist but did describe to the ICU nurse that she had problems with dysphagia off and on for the last several years. Her diabetes was uncontrolled. A1c before admission was 8.4%. With the Decadron given for IKER, her glucoses were consistently in the 200s. We osorio rivero started Lantus and then increased it on a day by day basis trying to achieve goal. On the day of discharge she was on Lantus 24 units twice daily and was started on lispro 5 units with each meal. She has 1 more day of Decadron left. Electrolyte disorders were handled by supplementing potassium, calcium, magnesium when necessary. She was noted to have sacral pressure changes with slight skin peeling but never a true ulcer. I asked nursing if those were present on admission and they did not have a clear idea of when they started and I must assume that it happened during her stay in ICU. By the time of discharge this was almost completely healed. When working with PT and OT she had an episode that PT felt was central vertigo and as such a CT of the head and CT angiogram was done. Results as above. She continued to have mild dizziness but nothing that prohibited her from cooperating with PT. At the time of discharge physical therapy felt that this patient was deconditioned and with generalized weakness. She lives alone. Still needs help with simple sit to stand, and mobility. PT felt that she would benefit from further rehab services. Assess the patient was transitioned to swing bed status. Greater than 30 minutes was spent coordinating transfer. Upon transfer I am stopping her metformin and continuing Lantus and lispro. This must be noticed that can be resumed when she is discharged from swing bed status. - ALLERGIES Allergies/Adverse Reactions: Allergies Allergy/AdvReac Type Severity Reaction Status Date / Time No Known Drug Allergies Allergy Verified 04/16/19 23:36 - MEDICATIONS Home Medications: Ambulatory Orders Medication Instructions Recorded Confirmed Acetaminophen [Tylenol] 650 mg PO Q4HR PRN 12/10/16 01/23/22 Cyanocobalamin (Vitamin B-12) 1,000 mcg PO BID 12/10/16 01/23/22 [Vitamin B-12] Folic Acid 0.4 mg PO DAILY 12/10/16 01/23/22 Ibuprofen [Motrin] 400 - 800 mg PO Q4HR PRN 12/10/16 01/23/22 Ascorbic Acid [Vitamin C] 500 mg PO DAILY 09/29/18 01/23/22 Cholecalciferol (Vitamin D3) 4,000 unit PO DAILY 09/29/18 01/23/22 [Vitamin D3] Lactobacillus Acidophilus 1 each PO DAILY 09/29/18 01/23/22 [Probiotic Acidophilus] Albuterol Sulfate [Proair Hfa 1 - 2 puffs INH Q4H PRN #1 inhaler 04/16/19 01/23/22 Inhaler] Insulin Aspart [NovoLOG] 30 unit SQ TID 01/23/22 01/23/22 Insulin Glargine [Lantus Solostar] 46 unit SQ DAILY 01/23/22 01/23/22 Rosuvastatin Calcium [Crestor] 5 mg PO DAILY 01/23/22 01/23/22 Exenatide Microspheres [Bydureon 2 mg SQ .WEEKLY 01/24/22 01/24/22 Bcise] Acetaminophen [Tylenol] 650 mg PO Q4HR PRN tab 01/31/22 Aspirin Chewable [[place] Gh[place]hyam 81 mg PO DAILY tab 01/31/22 Aspirin] Budesonide [Pulmicort] 0.5 mg INH RTBID ml 01/31/22 Docusate Sodium 250Mg Capsule 250 - 500 mg PO BID cap 01/31/22 [Colace 250Mg Capsule] Enoxaparin [Lovenox] 40 mg SUBQ DAILY ml 01/31/22 Ipratropium/Albuterol [Duoneb] 3 ml INH Q4HR PRN ml 01/31/22 Ipratropium/Albuterol [Duoneb] 3 ml INH RTQID ml 01/31/22 Min Oil/Dimeth/Coconut Oil Crm 1 applic TOP PRN PRN each 01/31/22 [Cavilon] Potassium Chloride [K-Dur] 40 meq PO DAILYWM tab 01/31/22 Saccharomyces Boulardii [Florastor] 250 mg PO BIDWM cap 01/31/22 Zinc Oxide 20% Oint [Zinc Oxide] 1 applic TOP PRN PRN each 01/31/22 dexAMETHasone [Decadron] 6 mg PO DAILY tab 01/31/22 - LABS Result Diagrams: 01/31/22 04:30 01/31/22 04:30
[2022-01-31] MEDS ORDERED: guaiFENesin 600 MG TABLET PO SCH (11:00)
[2022-01-31 11:27] VITALS: BP 146/83
[2022-01-31] MEDS ORDERED: INSULIN LISPRO 300 UNIT/3 ML PEN SUBQ SCH (12:00)
[2022-01-31] MEDS ORDERED: SENNA 8.6 MG TABLET PO SCH (12:00)
[2022-01-31] MEDS ORDERED: DOCUSATE SODIUM 250 MG CAPSULE PO SCH (17:00)
== END 2022-01-31 12:42 | disposition swing bed (61) | DRG 208 ==
LOC: EDUNIT# → ED 10:49 → MS2 15:19 → ICU 01-25 12:58 → MS2 01-30 14:24
PROVIDERS: ADMIT Internal Medicine; ATTEND Specialist
PROC: XW033E5 Introduction of Remdesivir Anti-infective into Peripheral Vein, Percutaneous Approach, New Technology Group 5 (ICD-10-PCS; principal; 2022-01-24)
PROC: 3E0333Z Introduction of Anti-inflammatory into Peripheral Vein, Percutaneous Approach (ICD-10-PCS; 2022-01-24)
PROC: 5A1945Z Respiratory Ventilation, 24-96 Consecutive Hours (ICD-10-PCS; 2022-01-25)
PROC: 02HV33Z Insertion of Infusion Device into Superior Vena Cava, Percutaneous Approach (ICD-10-PCS; 2022-01-25)
PROC: 0BH17EZ Insertion of Endotracheal Airway into Trachea, Via Natural or Artificial Opening (ICD-10-PCS; 2022-01-25)
DX: A41.9 Sepsis, unspecified organism (principal); U07.1 COVID-19; J12.82 Pneumonia due to coronavirus disease 2019; R09.02 Hypoxemia; J96.01 Acute respiratory failure with hypoxia; J18.9 Pneumonia, unspecified organism; J44.0 Chronic obstructive pulmonary disease with (acute) lower respiratory infection; J44.1 Chronic obstructive pulmonary disease with (acute) exacerbation; Z68.42 Body mass index [BMI] 45.0-49.9, adult; E87.20 Acidosis, unspecified; J90 Pleural effusion, not elsewhere classified; E11.65 Type 2 diabetes mellitus with hyperglycemia; E66.01 Morbid (severe) obesity due to excess calories; T38.3X5A Adverse effect of insulin and oral hypoglycemic [antidiabetic] drugs, initial encounter; Z79.84 Long term (current) use of oral hypoglycemic drugs; I25.10 Atherosclerotic heart disease of native coronary artery without angina pectoris; H81.4 Vertigo of central origin; I10 Essential (primary) hypertension; E78.00 Pure hypercholesterolemia, unspecified; G47.30 Sleep apnea, unspecified; F32.A Depression, unspecified; F41.9 Anxiety disorder, unspecified; R53.1 Weakness; K21.9 Gastro-esophageal reflux disease without esophagitis; F90.9 Attention-deficit hyperactivity disorder, unspecified type; S30.820A Blister (nonthermal) of lower back and pelvis, initial encounter; X58.XXXA Exposure to other specified factors, initial encounter; Y92.239 Unspecified place in hospital as the place of occurrence of the external cause; Z78.1 Physical restraint status
CPT/HCPCS: 36415; 36600; 70496; 70498; 71045; 80048; 80053; 82330; 82803; 83036; 83605; 83690; 83735; 83880; 84100; 84484; 85025; 86140; 87040; 87150; 87633; 93005; 94002; 94003; 94640; 96365; 96366; 96375; 97112; 97116; 97163; 97167; 97530; 97535; 99284; 99285; A6250; A9270; J0330; J1650; J1815; J3010; J7626; J8540; 94770

== ENCOUNTER 2022-01-31 08:22 | Inpatient (IN) | payer MEDICARE, OTHER ==
[2022-01-31] MEDS ORDERED: IBUPROFEN 400 MG TABLET PO PRN (13:55)
[2022-01-31] MEDS ORDERED: oxyCODONE 5 MG TABLET PO PRN (13:55)
[2022-01-31] MEDS ORDERED: ACETAMINOPHEN 325 MG TABLET PO PRN (13:55)
[2022-01-31] MEDS ORDERED: CHERRY SYRUP 10 ML UDC PO ONE (15:10)
--- NOTE | 2022-01-31 15:18 | PHARMACY PROGRESS NOTE ---
- Best Possible Medication History Admit Date and Time: 01/31/22 3770 Processed by: Pharmacy Medication History completed: Yes Secondary Source(s): Previous admit records As the person ultimately responsible for medication therapy, providers are able to order a medication from an existing home medication list in [facility] via the "Reconcile Routine" prior to Confirmation of that medication by clinical support tech. Such practice is discouraged except when the physician, in their clinical judgment, deems that a medical need exists for a medication without regard to previous use.
[2022-01-31] MEDS: INSULIN LISPRO 300 UNIT/3 ML PEN SUBQ SCH ×3 (16:59→21:14)
[2022-01-31] MEDS: SENNA 8.6 MG TABLET PO SCH (17:05)
[2022-01-31] MEDS: DOCUSATE SODIUM 250 MG CAPSULE PO SCH (21:12)
[2022-01-31] MEDS: guaiFENesin 600 MG TABLET PO SCH (21:12)
[2022-01-31] MEDS: INSULIN GLARGINE-YFGN 300 UNIT/3 ML PEN SUBQ SCH (21:14)
[2022-02-01] MEDS: SENNA 8.6 MG TABLET PO SCH ×3 (00:49→11:52)
[2022-02-01] MEDS ORDERED: dexAMETHasone 4 MG TABLET PO ONE (08:00)
[2022-02-01] MEDS: INSULIN LISPRO 300 UNIT/3 ML PEN SUBQ SCH ×7 (08:40→20:24)
[2022-02-01] MEDS: polyethylene glycoL 3350 17 GM PACKET PO SCH (08:43)
[2022-02-01] MEDS: DOCUSATE SODIUM 250 MG CAPSULE PO SCH ×2 (08:43→20:29)
[2022-02-01] MEDS: guaiFENesin 600 MG TABLET PO SCH ×2 (08:43→20:24)
[2022-02-01] MEDS: INSULIN GLARGINE-YFGN 300 UNIT/3 ML PEN SUBQ SCH ×2 (08:44→20:24)
--- NOTE | 2022-02-01 09:50 | HISTORY & PHYSICAL EXAMINATION ---
Chief Complaint - Chief Complaint Chief Complaint: Deconditioning post-covid History of Present Illness - History Obtained From History obtained from: Patient - History of Present Illness HPI Comment/Other: Ms. Stephens is a 71 year old female with history of COPD, CAD, and Type 2 Diabetes, who was discharged on 01/31/2022 for an inpatient stay following diagnosis of COVID pneumonia and COPD exacerbation. She was treated with remdesivir for the pneumonia and given empiric antibiotic therapy with ceftriaxone and Zithromax. While in the hospital, she went into respiratory arrest on 01/25/2022 and was intubated and then transferred to the ICU. She self-extubated herself on 01/28/2022. She developed significant fatigue and weakness and began working with Physical Therapy and Occupational Therapy. At the time of discharge, she continued to appear deconditioned with generalized weakness and physical therapy felt that she needed further rehab services as she lives alone and needed help with sit to stand and mobility. She is being admitted as swing bed status for continued rehab status for further strengthening before she can leave the hospital. Ms. Stephens says she is feeling much better today. She has been able to get out of bed and use the bathroom on her own and has been walking around in her room. She has been able to do these activities with minimal shortness of breath on exertion. She says that she has been able to eat her meals and drink water without any issues. She has been using her incentive spirometer and seeing good results. She is looking forward to possibly visiting with her daughter later today. History - Past Medical History Cardiovascular: reports: Hypertension, High cholesterol, Coronary artery disease Respiratory: reports: Asthma, Sleep apnea (She does not use her CPAP machine because it blows air into her tear duct where she has a stent on the L, which causes bubbling and dry eye) Neuro: reports: None Endocrine/Autoimmune: reports: Type 2 diabetes GI: reports: GERD : reports: None HEENT: reports: None Psych: reports: Depression, Anxiety, ADD/ADHD Musculoskeletal: reports: Osteoarthritis, Fibromyalgia Derm: reports: None MRSA Hx?: No - Past Surgical History General: reports: Colonoscopy Ortho: reports: Carpal Tunnel surgery, Other HEENT: reports: Other - Family & Social History Family History: Mother: , Father: , Sister: Alive and Well (She has 2 older sisters, 1 has many comorbidities) Family History Comment/Other: She has 6 natural children, they are healthy Living Situation: Alone Social History Notes: She never smoked cigarettes, she drinks no alcohol. She uses no illicit drugs. She is and is a retired hairstylist. - Substance History Use: Uses substance without health or social issues: NONE - POLST Patient has POLST: No POLST Status: Full Code Meds/Allgy - Home Medications Home Medications: Ambulatory Orders Medication Instructions Recorded Confirmed Acetaminophen [Tylenol] 650 mg PO Q4HR PRN 12/10/16 01/31/22 Cyanocobalamin (Vitamin B-12) 1,000 mcg PO BID 12/10/16 01/31/22 [Vitamin B-12] Folic Acid 0.4 mg PO DAILY 12/10/16 01/31/22 Ibuprofen [Motrin] 400 - 800 mg PO Q4HR PRN 12/10/16 01/31/22 Ascorbic Acid [Vitamin C] 500 mg PO DAILY 09/29/18 01/31/22 Cholecalciferol (Vitamin D3) 4,000 unit PO DAILY 09/29/18 01/31/22 [Vitamin D3] Lactobacillus Acidophilus 1 each PO DAILY 09/29/18 01/31/22 [Probiotic Acidophilus] Albuterol Sulfate [Proair Hfa 1 - 2 puffs INH Q4H PRN #1 inhaler 04/16/19 01/31/22 Inhaler] Insulin Aspart [NovoLOG] 30 unit SQ TID 01/23/22 01/31/22 Insulin Glargine [Lantus Solostar] 46 unit SQ DAILY 01/23/22 01/31/22 Rosuvastatin Calcium [Crestor] 5 mg PO DAILY 01/23/22 01/31/22 Exenatide Microspheres [Bydureon 2 mg SQ .WEEKLY 01/24/22 01/31/22 Bcise] Acetaminophen [Tylenol] 650 mg PO Q4HR PRN tab 01/31/22 01/31/22 Aspirin Chewable [St Ghanshyam 81 mg PO DAILY tab 01/31/22 01/31/22 Aspirin] Budesonide [Pulmicort] 0.5 mg INH RTBID ml 01/31/22 01/31/22 Docusate Sodium 250Mg Capsule 250 - 500 mg PO BID cap 01/31/22 01/31/22 [Colace 250Mg Capsule] Enoxaparin [Lovenox] 40 mg SUBQ DAILY ml 01/31/22 01/31/22 Ipratropium/Albuterol [Duoneb] 3 ml INH Q4HR PRN ml 01/31/22 01/31/22 Ipratropium/Albuterol [Duoneb] 3 ml INH RTQID ml 01/31/22 01/31/22 Min Oil/Dimeth/Coconut Oil Crm 1 applic TOP PRN PRN each 01/31/22 01/31/22 [Cavilon] Potassium Chloride [K-Dur] 40 meq PO DAILYWM tab 01/31/22 01/31/22 Saccharomyces Boulardii [Florastor] 250 mg PO BIDWM cap 01/31/22 01/31/22 Zinc Oxide 20% Oint [Zinc Oxide] 1 applic TOP PRN PRN each 01/31/22 01/31/22 dexAMETHasone [Decadron] 6 mg PO DAILY tab 01/31/22 01/31/22 - Allergies Allergies/Adverse Reactions: Allergies Allergy/AdvReac Type Severity Reaction Status Date / Time No Known Drug Allergies Allergy Verified 04/16/19 23:36 Review of Systems - Constitutional Constitutional: reports: Fatigue, Weakness (She is continuing to have weakness following covid pneumonia) - Cardiovascular Cariovascular: denies: Chest pain - Respiratory Respiratory: reports: Cough (Her cough overall has been improving), Sputum production. denies: SOB at rest, SOB with exertion - Gastrointestinal Gastrointestinal: denies: Abdominal pain, Poor appetite - Integumentary Integumentary: denies: Rash - All Other Systems All Other Systems: reports: Reviewed and negative Exam - Vital Signs Reviewed Vital Signs: Yes Vital Signs: Vital Signs x48h Temp Pulse Resp BP Pulse Ox 02/01/22 07:55 36.4 C L 74 18 135/80 H 97 - Physical Exam General Appearance: positive: No acute distress, Alert Eyes Bilateral: positive: Normal inspection, PERRL, EOMI Neck: positive: Nml inspection, No JVD. negative: Stiff neck Respiratory: positive: No respiratory distress, Breath sounds nml Cardiovascular: positive: Regular rate & rhythm, No murmur Abdomen: positive: Non-tender, No distention Skin: positive: Color nml, Dry, Other (Sacral skin changes present, covered with silver nitrate) Extremities: positive: Other (Calf and pedal edema was present bilaterally. She says she has edema at baseline and there is no change from baseline since hospitalization) Neurologic/Psychiatric: positive: Mood/affect nml Conclusion/Plan - Problem List (1) Physical deconditioning Conclusion/Plan: She has physical deconditioning and weakness following covid pneumonia associated with acute respiratory failure. Physical therapy felt she would benefit from continued rehab, so we are admitting her as swing bed status with a goal end date of February 07, 2022 at which we will reassess her need to rehab services. The goals for her rehab are to move from supine to sitting to standing without assist, walk 30 feet without dyspnea on exertion, and to toilet, dress, and bathe herself without assistance. She has continued to feel better throughout her hospital stay and was in good spirits today while we talked with her. She is showing continued improvement as she has been getting out bed and using the bathroom by herself without any assist with minimal dyspnea. She is also walking around in her room and since today is her last day in isolation, the goal is for to begin walking in the hallway. (2) COPD exacerbation Conclusion/Plan: She was diagnosed with mild COPD in March 2021. She also had a COPD exacerbation with the covid pneumonia and was treated with Duonebs, inhaled Pulmicort, and Decadron. She got her last dose of Decadron today and we will continue to treat with Pulmicort and Duonebs. She is continuing to have a mild cough that is improving with some phlegm production, and her dyspnea is continuing to improve as well. She is continuing to use her incentive spiromete r. (3) Diabetes mellitus Conclusion/Plan: We will continue to give her lantus and lispro while she is in the hospital. She is currently on Lantus 24U twice daily and Lispro 5mg with meals. Her glucose today was 120 and she also took her last dose of Decadron today as well. We will continue to monitor her glucose to make sure she doesn't become hypoglycemic. We will continue her metformin 1000mg twice daily and Exenatide 2mg weekly once she leaves the hospital. (4) History of coronary artery disease Conclusion/Plan: We will continue her Rosuvastatin 5mg daily and Aspirin 81mg daily while she in the hospital. Hypertension is in her medical history, but upon medical reconciliation, she is not on any hypertensive and her blood pressure has remained well-controlled.
[2022-02-01] MEDS ORDERED: MIN OIL/DIMETHICON/COCONUT OIL 92 GM TUBE TOP PRN (11:38)
[2022-02-01] MEDS ORDERED: ZINC OXIDE 20% OINT 30 GM TUBE TOP PRN (11:38)
[2022-02-01] MEDS: POTASSIUM CHLORIDE 20 MEQ TABLET PO SCH (12:51)
[2022-02-01] MEDS: ASCORBIC ACID 500 MG TABLET PO SCH (12:51)
[2022-02-01] MEDS: ASPIRIN CHEW 81 MG TABLET PO SCH (12:51)
[2022-02-01] MEDS: IPRATROPIUM/ALBUTEROL 3 ML NEB INH SCH ×2 (15:20→20:29)
[2022-02-01] MEDS: SACCHAROMYCES BOULARDII 250 MG CAPSULE PO SCH (16:54)
[2022-02-01] MEDS: ATORVASTATIN 10 MG TABLET PO SCH (20:24)
[2022-02-01] MEDS: BUDESONIDE 0.5 MG/2 ML NEB INH SCH (20:29)
[2022-02-01] MEDS ORDERED: CYANOCOBALAMIN 500 MCG TABLET PO SCH (21:00)
[2022-02-02] MEDS: BUDESONIDE 0.5 MG/2 ML NEB INH SCH (07:06)
[2022-02-02] MEDS: IPRATROPIUM/ALBUTEROL 3 ML NEB INH SCH (07:06)
[2022-02-02] MEDS: polyethylene glycoL 3350 17 GM PACKET PO SCH (08:31)
[2022-02-02] MEDS: POTASSIUM CHLORIDE 20 MEQ TABLET PO SCH (08:32)
[2022-02-02] MEDS: SACCHAROMYCES BOULARDII 250 MG CAPSULE PO SCH ×2 (08:32→16:37)
[2022-02-02] MEDS: CHOLECALCIFEROL 5,000 UNIT CAPSULE PO SCH (08:32)
[2022-02-02] MEDS: FOLIC ACID 1 MG TABLET PO SCH (08:32)
[2022-02-02] MEDS: ASCORBIC ACID 500 MG TABLET PO SCH (08:32)
[2022-02-02] MEDS: ASPIRIN CHEW 81 MG TABLET PO SCH (08:32)
[2022-02-02] MEDS: DOCUSATE SODIUM 250 MG CAPSULE PO SCH ×2 (08:32→20:48)
[2022-02-02] MEDS: guaiFENesin 600 MG TABLET PO SCH ×2 (08:33→20:48)
[2022-02-02] MEDS: ENOXAPARIN 40 MG/0.4 ML SYRINGE SUBQ SCH (08:33)
[2022-02-02] MEDS: INSULIN LISPRO 300 UNIT/3 ML PEN SUBQ SCH ×7 (08:34→20:48)
[2022-02-02] MEDS: INSULIN GLARGINE-YFGN 300 UNIT/3 ML PEN SUBQ SCH (08:35)
[2022-02-02] MEDS ORDERED: ALBUTEROL NEB 2.5 MG/3 ML INH PRN (11:09)
[2022-02-02] MEDS: ATORVASTATIN 10 MG TABLET PO SCH (20:48)
[2022-02-02] MEDS ORDERED: INSULIN GLARGINE-YFGN 300 UNIT/3 ML PEN SUBQ SCH (21:00)
[2022-02-03] MEDS: CHOLECALCIFEROL 5,000 UNIT CAPSULE PO SCH (08:56)
[2022-02-03] MEDS: SACCHAROMYCES BOULARDII 250 MG CAPSULE PO SCH (08:56)
[2022-02-03] MEDS: guaiFENesin 600 MG TABLET PO SCH (08:56)
[2022-02-03] MEDS: ASCORBIC ACID 500 MG TABLET PO SCH (08:56)
[2022-02-03] MEDS: ASPIRIN CHEW 81 MG TABLET PO SCH (08:56)
[2022-02-03] MEDS: FOLIC ACID 1 MG TABLET PO SCH (08:56)
[2022-02-03] MEDS: POTASSIUM CHLORIDE 20 MEQ TABLET PO SCH (08:56)
[2022-02-03] MEDS: INSULIN LISPRO 300 UNIT/3 ML PEN SUBQ SCH ×2 (08:57)
[2022-02-03] MEDS: INSULIN GLARGINE-YFGN 300 UNIT/3 ML PEN SUBQ SCH (08:58)
[2022-02-03] MEDS: DOCUSATE SODIUM 250 MG CAPSULE PO SCH (09:05)
[2022-02-03] MEDS: ENOXAPARIN 40 MG/0.4 ML SYRINGE SUBQ SCH (09:05)
[2022-02-03] MEDS: polyethylene glycoL 3350 17 GM PACKET PO SCH (09:06)
--- NOTE | 2022-02-03 10:03 | Discharge Plan ---
Discharge Plan Problem Reviewed?: Yes Disposition: Home Health Service Condition: Fair Diet: Diabetic Activity Restrictions: Activity as Tolerated Shower Restrictions: No Driving Restrictions: No Assistance Devices: Walker Instruction Topics: Pneumonia, COVID-19 [facility] Health Concerns: You presented to our emergency room because you were short of breath and had a cough on January 22. It also included upper respiratory tract symptoms with severe nasal congestion for at least 2 days before you came to the emergency room. You were short of breath and having sounds of stridor (whistling sound in your neck). Because of the stridor, a CT of the neck was done, you received nebulizers, steroids and no obstruction was seen in your neck. You were stable enough to go home with a presumptive diagnosis of viral pneumonia. You then had to come back to our emergency room January 23 because your cough was much worse, phlegm was worse, and you were now having very low oxygen levels when we checked you in the emergency room. You now had an elevated white cell count, and you had something called lactic acidosis. The second time around you were COVID-positive. So we admitted you as viral pneumonia from COVID, and a possible secondary infection of bacterial pneumonia with emphysema exacerbation. Unfortunately, in spite of all of this treatment, you continue to deteriorate and had a respiratory arrest and you stopped breathing which resulted in intubation. We had to support you with a tube down your trachea and bronchus with air forced in by a machine to help you breathe since you were not breathing on your own. You were transferred to the ICU, stabilized, and you extubated yourself on January 28. Since that time you have steadily improved. You were still weak and deconditioned from being in the ICU. You live alone and we were worried that you would not be able to have the strength to take care of yourself. As such were placed in swing bed status January 31. You have improved quickly in a very short time. You went from being short of breath with 20 feet to now being able to walk 100 feet. You are still short of breath but are able to take care of yourself better. You still have stridor. You have problems with your sinuses that may be impacting your vocal cords with the postnasal drip. I am also wondering if you have something called tracheomalacia. Plan of Treatment: 1. Please see your primary care provider, JUNG Sosa, in the next 1 to 2 weeks. You need to have your lungs and your throat listen to to make sure you are staying stable. 2. Please have her refer you to an panama hat smearer that can evaluate your sinuses, your vocal cords, and the possibility of the tracheal problem. Below is a list of the different ENT groups from [place] to [place] to [place] and into [place]. Until you are seen by them, I would ask you to please avoid nonsteroidal medication. Things like aspirin or Motrin or Aleve. Very rarely there is problems that link taking these medications and sinus issues causing asthma. 3. I am resuming you on your usual home medications. While you were in the hospital we had you on a different type of Lantus and short acting insulin due to our formulary restrictions. But we are not changing her home medications and you can resume your usual diabetic treatment. 4. While you were in the hospital, we did change your inhalers quite a bit. We had you on an inhaled long-acting muscle relaxer for your bronchial tubes, a long-acting inhaled steroid, and short acting albuterol/ipratropium. We are resuming your usual home medication of a simple albuterol HFA inhaler. You made it very clear to me that your problem right now is breathing from stridor and not wheezing. Care Goals: To be able to return to your basic standard physical ability at home. Without weakness, shortness of breath. We will be sending you home with an order to get physical therapy and Occupational Therapy through home health agency. Assessment: Patient is alert, oriented, is very motivated to follow through on referrals to get her better Additional Instructions or Follow Up instructions: Dr. Steven Terrell at [facility] is part of [facility] clinics. they also have different doctors as part of that office in [place] [address], [address], [place] [phone] Andres Valle MD [place] [facility] [address] [facility] [phone] Dr. Rip Krishnamurthy and several ENT in that office, they are part of [facility] ENT [facility] [facility], [address] [place] [phone] [facility] ENT, part of [facility] [address] [facility], [facility], second floor [place] [phone] [facility] ENT, part of [facility] [address] [place] [phone] [facility] [address] [facility]. [place] [phone] Follow-Up Care: Home Health - PT, Home Health - OT, Home Health - ST No Smoking: If you smoke, Please STOP! Call for help. Follow-up with: Dona Sosa ARNP [Provider Admit Priv/Credential] -
--- NOTE | 2022-02-03 10:58 | DISCHARGE SUMMARY ---
Discharge Summary Admit Date: 01/31/22 Discharge Date: 02/03/22 Discharging Provider: Joana Larson MD Primary Care Provider: JUNG Tom Code Status: Attempt Resuscitation Condition at Discharge: Fair Discharge Disposition: Home Health Service - DIAGNOSES Discharge Diagnoses with Status of Each Condition: 1. Physical deconditioning after an ICU stay 2. COPD exacerbation 3. Type 2 diabetes mellitus, uncontrolled with hyperglycemia, on long-term insulin 4. History of coronary artery disease 5. Status post respiratory arrest January 25 6. Status post COVID-pneumonia January 23 - HPI History of Present Illness: Ms. Stephens is a 71 year old female with history of COPD, CAD, and Type 2 Diabet es, who was discharged on 01/31/2022 for an inpatient stay following diagnosis of COVID pneumonia and COPD exacerbation 01/23/22. She was treated with remdesivir for the pneumonia and given empiric antibiotic therapy with ceftriaxone and Zithromax. While in the hospital, she went into respiratory arrest on 01/25/2022 and was intubated and then transferred to the ICU. She self-extubated herself on 01/28/2022. She developed significant fatigue and weakness and began working with Physical Therapy and Occupational Therapy. At the time of discharge, she continued to appear deconditioned with generalized weakness and physical therapy felt that she needed further rehab services as she lives alone and needed help with sit to stand and mobility. She is being admitted as swing bed status for continued rehab status for further strengthening before she can leave the hospital. Ms. Stephens says she is feeling much better today. She has been able to get out of bed and use the bathroom on her own and has been walking around in her room. She has been able to do these activities with minimal shortness of breath on exertion. She says that she has been able to eat her meals and drink water without any issues. She has been using her incentive spirometer and seeing good results. She is looking forward to possibly visiting with her daughter later today. - Past Medical History Cardiovascular: reports: Hypertension, High cholesterol, Coronary artery disease Respiratory: reports: Asthma, Sleep apnea (She does not use her CPAP machine because it blows air into her tear duct where she has a stent on the L, which causes bubbling and dry eye) Neuro: reports: None Endocrine/Autoimmune: reports: Type 2 diabetes GI: reports: GERD : reports: None HEENT: reports: None Psych: reports: Depression, Anxiety, ADD/ADHD Musculoskeletal: reports: Osteoarthritis, Fibromyalgia Derm: reports: None MRSA Hx?: No - Past Surgical History General: reports: Colonoscopy Ortho: reports: Carpal Tunnel surgery, Other HEENT: reports: Other - HOSPITAL COURSE Hospital Course: The patient was seen in the acute inpatient stay by physical therapy and Occupational Therapy who felt that she was deconditioned due to her ICU stay and intubation. She was weak, fatigued. Not completely independent with activities of daily living and she would become tachypneic and short of breath with minimal exertion such as getting up to get out of bed and walk across the room. She lives alone and physical therapy recommended strengthening exercises and endurance exercises to allow her to be able to go home safely. She was transitioned to swing bed status from the acute care status. Within 48 hours she was remarkably rebounded. She was able to walk 300 feet. She was meeting all of her goals. As such we did not feel that she needed a prolonged stay in swing bed status and asked if she felt stable enough to go home alone. She said that she felt very good and would like to go home. We do not have rehab services on Sundays. She is being discharged on a Friday.I am sending her home with home health and physical therapy/Occupational Therapy. Speech therapy did come to see her February 02 but we were mistaken and thinking that this was for a cognitive evaluation that the patient did not need and speech therapy was canceled. She would benefit from home health PT/OT, and speech. However rehab service did see her yesterday. The noted her progress towards her goals: 1) Pt will perform all transfers w/ Randal - MET. Pt performing STS transfers from bedside and chair w/o AD independently during today's session. Pt utilizing walker during toilet transfers per her report w/ modified independence. 2) Pt will amb x200ft w/ FWW for safe home mobility - MET. Pt ambulating in hallway x250+ ft using bariatric walker; ambulating slowly but performing w/o assist or episodes of LOB. 3) Improve standing balance to good for reduced fall risk - MET. Pt performing NBOS stance x60 seconds, standing w/ EC x10 seconds, alternating toe taps to stool x8 reps and modified tandem stance x30 seconds w/o LOB. 4) Pt will improve Resendez Balance Score >/= 45/56 in support of reduced fall risk - MET. Pt scoring a 46/56 on the Resendez on 02/02. 5) Pt will perform daily HEP independently - MET. Per pt reports, she is performing hep and it is going well. During her stay we were using Lantus and lispro to control her insulin. She is worried that she will have to go home on these and I explained to her that this was only because of formulary restrictions in our pharmacy. She can go back to using the same NovoLog, Lantus that she used at home. She also uses exenatide microspheres subcutaneous weekly. During her stay she was also on long-acting bronchodilators, and inhaled steroids. She says that she does not take those at home and would prefer to just be on her ProAir. As such I am not giving her prescription for medication such as Advair or budesonide. Part of her shortness of breath was due to stridor. She says that she has been having difficulty swallowing and having stridor for a while now. Even before she became ill. She states that everyone keeps on getting focused on her wheezing and COPD but not really addressing why does she have stridor. As such she is requesting referral to ENT. I explained I cannot do that but that her primary care provider, JUNG Miranda can. I gave the patient a list of all the ENT providers and [place] I told her that she could have vocal cord paralysis, tracheomalacia, allergic rhinosinusitis, or a syndrome related to nasal polyps, aspirin, and asthma. At discharge temperature was 36.6. Heart rate 87. Blood pressure 143/79. Respirations 18. 97% on room air she is 5 foot 5 inches tall and weighs 122 kg. She had just gotten up to go to the bathroom, wash her hands, then brush her teeth and then get back to sitting in a chair to speak to me. Mildly tachypneic at 24 with stridor audible even without a stethoscope. Lungs have prolonged and exhalation phase but no wheezing. She has a regular rate and rhythm. And obese abdominal pannus, that is with normal bowel sounds, nontender. She has some resolving Gloria underneath the pannus that she needs to put cream on. She has some pressure changes on her sacrum that she developed in ICU but there is no skin breakdown or ulcer. She needs to put cream on that. Legs have trace edema and she is ambulating with a slightly wide-based gait but no imbalance. Greater than 30 minutes was spent coordinating discharge and discussing her stridor, and getting the list together for ENT. - ALLERGIES Allergies/Adverse Reactions: Allergies Allergy/AdvReac Type Severity Reaction Status Date / Time No Known Drug Allergies Allergy Verified 04/16/19 23:36 - MEDICATIONS Home Medications: Ambulatory Orders Medication Instructions Recorded Confirmed Acetaminophen [Tylenol] 650 mg PO Q4HR PRN 12/10/16 01/31/22 Cyanocobalamin (Vitamin B-12) 1,000 mcg PO DAILY 12/10/16 02/03/22 [Vitamin B-12] Folic Acid 0.4 mg PO DAILY 12/10/16 01/31/22 Ascorbic Acid [Vitamin C] 500 mg PO DAILY 09/29/18 01/31/22 Cholecalciferol (Vitamin D3) 4,000 unit PO DAILY 09/29/18 01/31/22 [Vitamin D3] Lactobacillus Acidophilus 1 each PO DAILY 09/29/18 01/31/22 [Probiotic Acidophilus] Albuterol Sulfate [Proair Hfa 1 - 2 puffs INH Q4H PRN #1 inhaler 04/16/19 01/31/22 Inhaler] Insulin Aspart [NovoLOG] 30 unit SQ TID 01/23/22 01/31/22 Insulin Glargine [Lantus Solostar] 46 unit SQ DAILY 01/23/22 01/31/22 Rosuvastatin Calcium [Crestor] 5 mg PO DAILY 01/23/22 01/31/22 Exenatide Microspheres [Bydureon 2 mg SQ .WEEKLY 01/24/22 01/31/22 Bcise] Zinc Oxide 20% Oint [Zinc Oxide] 1 applic TOP PRN PRN each 01/31/22 01/31/22
[2022-02-03 11:20] VITALS: BP 143/79
== END 2022-02-03 11:30 | disposition home health service (06) | DRG 948 ==
LOC: MS2 13:55
PROVIDERS: ADMIT Specialist; ATTEND Specialist
DX: R53.1 Weakness (principal); Z68.41 Body mass index [BMI] 40.0-44.9, adult; J43.9 Emphysema, unspecified; I25.10 Atherosclerotic heart disease of native coronary artery without angina pectoris; E11.65 Type 2 diabetes mellitus with hyperglycemia; I10 Essential (primary) hypertension; E78.00 Pure hypercholesterolemia, unspecified; G47.30 Sleep apnea, unspecified; K21.9 Gastro-esophageal reflux disease without esophagitis; F32.A Depression, unspecified; F41.9 Anxiety disorder, unspecified; F90.9 Attention-deficit hyperactivity disorder, unspecified type; R13.10 Dysphagia, unspecified; E66.9 Obesity, unspecified; R60.0 Localized edema; B37.2 Candidiasis of skin and nail; Z79.4 Long term (current) use of insulin; Z86.16 Personal history of COVID-19; Z87.01 Personal history of pneumonia (recurrent)
CPT/HCPCS: 94640

== ENCOUNTER 2022-03-18 18:08 | Outpatient (CLI) | payer MEDICARE, OTHER ==
--- NOTE | 2022-03-19 14:00 | XRAY Report ---
PROCEDURE: Shoulder 3 View RT INDICATIONS: CONTUSION OF RIGHT SHOULDER TECHNIQUE: 3 views of the shoulder were acquired. COMPARISON: None. FINDINGS: Bones: Severe glenohumeral joint degenerative change with large osteophyte and joint space obliterat ion. No fractures or dislocations. No suspicious bony lesions. Visualized ribs appear intact. Soft tissues: No suspicious soft tissue calcifications. IMPRESSION: Severe glenohumeral joint degenerative arthritis. Reviewed by: Haroon Morrissey MD on 03/19/2022 1:59 PM PST Approved by: Haroon Morrissey MD on 03/19/2022 1:59 PM PST Station ID: [id number]
== END 2022-03-18 18:09 | disposition home or self-care (01) ==
LOC: DI 18:08
PROVIDERS: ATTEND Physician Assistant
DX: S40.011A Contusion of right shoulder, initial encounter (principal); M19.011 Primary osteoarthritis, right shoulder

== ENCOUNTER 2022-04-19 09:37 | Outpatient (CLI) | payer MEDICARE, OTHER ==
[2022-04-19 13:19] LABS: ALBUMIN 3.9 g/dL (3.2-5.5); ALBUMIN/GLOBULIN RATIO 1.1 (1.0-2.2); ALKALINE PHOSPHATASE 114 IU/L (42-121); ALT ALANINE AMINOTRANSFERASE 19 IU/L (10-60); AST ASPARTATE AMINOTRANSFERASE 20 IU/L (10-42); BILIRUBIN,TOTAL 0.9 mg/dL (0.2-1.0); BUN - BLOOD UREA NITROGEN 15 mg/dL (6-20); CALCIUM 9.1 mg/dL (8.5-10.3); CARBON DIOXIDE - CO2 27 mmol/L (21-32); CHLORIDE 100 mmol/L (101-111); CHOL/HDL RATIO 3.4 (<4.4); CHOLESTEROL 177 mg/dL; CREATININE 0.6 mg/dL (0.4-1.0); GFR - MDRD 99 (>89); GLUCOSE 146 mg/dL (70-100); HDL CHOLESTEROL 52 mg/dL; LDL CHOLESTEROL,CALCULATED 97 mg/dL; LDL/HDL RATIO 1.9 (<4.4); SODIUM 135 mmol/L (135-145); TOTAL PROTEIN 7.3 g/dL (6.7-8.2); TRIGLYCERIDES 139 mg/dL; VLDL CHOLESTEROL 28 mg/dL
[2022-04-19 14:06] LABS: ESTIMATED AVERAGE GLUCOSE 171 mg/dL (70-100); HEMOGLOBIN A1c% 7.6 % (4.27-6.07)
== END 2022-04-19 09:38 | disposition home or self-care (01) ==
LOC: LAB.N 09:37
PROVIDERS: ATTEND Nurse Practitioner
DX: E11.65 Type 2 diabetes mellitus with hyperglycemia (principal); I10 Essential (primary) hypertension; E78.5 Hyperlipidemia, unspecified
CPT/HCPCS: 36415; 80053; 80061; 83036; 83721

== ENCOUNTER 2022-09-03 12:37 | Outpatient (CLI) | payer MEDICARE, OTHER ==
[2022-09-03 12:52] LABS: BASOPHILS % (AUTO) 0.4 %; EOSINOPHILS # (AUTO) 0.2 10^3/uL (0.0-0.7); EOSINOPHILS % (AUTO) 1.4 %; HCT - HEMATOCRIT 44.5 % (37.0-47.0); HGB - HEMOGLOBIN 14.8 g/dL (12.0-16.0); LYMPHOCYTES # (AUTO) 2.2 10^3/uL (1.5-3.5); LYMPHOCYTES % (AUTO) 20.2 %; MEAN CORPUSCULAR HEMOGLOBIN 30.4 pg (27.0-31.0); MEAN CORPUSCULAR HGB CONC 33.3 g/dL (32.0-36.0); MEAN CORPUSCULAR VOLUME 91.4 fL (81.0-99.0); MEAN PLATELET VOLUME 9.2 fL (7.9-10.8); NEUTROPHILS # (AUTO) 7.6 10^3/uL (1.5-6.6); NEUTROPHILS % (AUTO) 68.5 %; PLT - PLATELET COUNT 314 10^3/uL (130-450); RED BLOOD COUNT 4.87 10^6/uL (4.20-5.40); RED CELL DISTRIBUTION WIDTH 14.1 % (12.0-15.0); WHITE BLOOD COUNT 11.1 x10^3/uL (4.8-10.8)
[2022-09-03 13:04] LABS: ALBUMIN/GLOBULIN RATIO 1.1 (1.0-2.2); CALCIUM 9.3 mg/dL (8.5-10.3); CREATININE 0.6 mg/dL (0.4-1.0); POTASSIUM 4.2 mmol/L (3.5-5.0); TOTAL PROTEIN 7.8 g/dL (6.7-8.2)
[2022-09-03 13:06] LABS: ESTIMATED AVERAGE GLUCOSE 154 mg/dL (70-100)
== END 2022-09-03 12:38 | disposition home or self-care (01) ==
LOC: LAB 12:37
PROVIDERS: ATTEND Nurse Practitioner Family
DX: I10 Essential (primary) hypertension (principal); E11.8 Type 2 diabetes mellitus with unspecified complications
CPT/HCPCS: 36415; 80053; 83036; 85025

== ENCOUNTER 2023-02-14 13:34 | Outpatient (CLI) | payer MEDICARE, OTHER ==
[2023-02-14 18:24] LABS: CHOL/HDL RATIO 3.4 (<4.4); CHOLESTEROL 163 mg/dL; HDL CHOLESTEROL 48 mg/dL; LDL CHOLESTEROL,CALCULATED 80 mg/dL; LDL/HDL RATIO 1.7 (<4.4); TRIGLYCERIDES 173 mg/dL (48-352); VLDL CHOLESTEROL 35 mg/dL
[2023-02-14 21:19] LABS: ESTIMATED AVERAGE GLUCOSE 148 mg/dL (70-100); HEMOGLOBIN A1c% 6.8 % (4.27-6.07)
== END 2023-02-14 13:35 | disposition home or self-care (01) ==
LOC: LAB.N 13:34
PROVIDERS: ATTEND Nurse Practitioner
DX: E11.8 Type 2 diabetes mellitus with unspecified complications (principal); E78.2 Mixed hyperlipidemia
CPT/HCPCS: 36415; 80061; 83036; 83721

== ENCOUNTER 2023-03-19 11:24 | Outpatient (CLI) | payer MEDICARE, OTHER ==
[2023-03-19 18:31] LABS: ALBUMIN 4.2 g/dL (3.2-5.5); ALBUMIN/GLOBULIN RATIO 1.3 (1.0-2.2); ALKALINE PHOSPHATASE 125 IU/L (42-121); ALT ALANINE AMINOTRANSFERASE 16 IU/L (10-60); AST ASPARTATE AMINOTRANSFERASE 18 IU/L (10-42); BILIRUBIN,TOTAL 0.8 mg/dL (0.2-1.0); BUN - BLOOD UREA NITROGEN 12 mg/dL (6-20); CALCIUM 9.5 mg/dL (8.5-10.3); CARBON DIOXIDE - CO2 26 mmol/L (21-32); CHLORIDE 105 mmol/L (101-111); CHOL/HDL RATIO 3.6 (<4.4); CHOLESTEROL 174 mg/dL; CREATININE 0.5 mg/dL (0.6-1.3); GFR - MDRD 121 (>89); GLUCOSE 159 mg/dL (74-104); HDL CHOLESTEROL 48 mg/dL; LDL CHOLESTEROL,CALCULATED 98 mg/dL; POTASSIUM 4.4 mmol/L (3.5-4.5); SODIUM 137 mmol/L (135-145); TOTAL PROTEIN 7.4 g/dL (6.4-8.9); TRIGLYCERIDES 141 mg/dL (48-352); VLDL CHOLESTEROL 28 mg/dL
[2023-03-19 20:23] LABS: ESTIMATED AVERAGE GLUCOSE 151 mg/dL (70-100); HEMOGLOBIN A1c% 6.9 % (4.27-6.07)
== END 2023-03-19 11:25 | disposition home or self-care (01) ==
LOC: LAB.N 11:24
PROVIDERS: ATTEND Nurse Practitioner Family
DX: I10 Essential (primary) hypertension (principal); E78.5 Hyperlipidemia, unspecified; E11.8 Type 2 diabetes mellitus with unspecified complications
CPT/HCPCS: 36415; 80053; 80061; 83036; 83721

== ENCOUNTER 2023-04-28 13:35 | Outpatient (CLI) | payer MEDICARE, OTHER ==
--- NOTE | 2023-05-02 11:43 | Mammography Report ---
BILATERAL DIGITAL SCREENING MAMMOGRAM 3D/2D: 04/28/2023 CLINICAL: Routine screening. Family history of breast cancer. Comparison is made to exams dated: 10/25/2021 mammogram, 05/10/2016 mammogram, and 04/03/2015 mammogram - [facility]. There are scattered areas of fibroglandular density in both breasts (category b / 25%-50% glandular t issue). There are benign calcifications in both breasts. There also are benign vascular calcifications in tavon th breasts. No significant masses, calcifications, or other findings are seen in either breast. There has been no significant interval change. IMPRESSION: BENIGN There is no mammographic evidence of malignancy. A 1 year screening mammogram is recommended. Based on the Tyrer Cuzick model (a risk assessment model) the patient's lifetime risk is 7.4% and her 10 year risk is 5.5%. According to the ACR, ACS, and NCCN guidelines, an annual breast MRI exam brody g with mammogram is recommended if the patients lifetime risk is 20% or greater. This exam was interpreted at Station ID: [id number]. NOTE: For mammograms, a report in lay terms will be sent to the patient. Approximately 15% of breast malignancies will not be visualized mammographically. In the management of a palpable breast mass, a negative mammogram must not discourage biopsy of a clinically suspicious lesion. Electronically Signed By: Daniel pelletier/casie:05/01/2023 11:56:12 letter sent: No_Letter ACR BI-RADS Category 2: Benign Finding(s) 3342F PARENCHYMAL PATTERN: (A) - The breast(s) demonstrate(s) scattered fibroglandular densities. BI-RADS CATEGORY: (2) - 2 Mammogram [id number] 1 year screening LATERALITY: (B)
== END 2023-04-28 13:36 | disposition home or self-care (01) ==
LOC: DI.N 13:35
DX: Z12.31 Encounter for screening mammogram for malignant neoplasm of breast (principal); Z80.3 Family history of malignant neoplasm of breast; R92.323 Mammographic fibroglandular density, bilateral breasts; R92.1 Mammographic calcification found on diagnostic imaging of breast

== ENCOUNTER 2023-05-29 06:20 | Day surgery (SDC) | payer MEDICARE, OTHER ==
[2023-05-29] MEDS: LACTATED RINGERS 1,000 ML IV ONE ×2 (06:30→08:41)
[2023-05-29] MEDS ORDERED: PROPOFOL 500 MG/50 ML 500 MG/50 ML VIAL ONE ×2 (07:18→07:55)
[2023-05-29] MEDS: ACETAMINOPHEN 500 MG TABLET PO ONE (09:06)
[2023-05-29 09:08] VITALS: BP 121/57; O2SAT 95
--- NOTE | 2023-05-29 17:11 | ANESTHESIA ---
Pre-Anesthesia VS, & Labs - Diagnosis screening - Procedure colonoscopy Vital Signs: Temp Pulse Resp BP Pulse Ox O2 Flow Rate 36.4 C L 90 18 121/57 L 95 05/29/23 08:41 05/29/23 08:59 05/29/23 08:59 05/29/23 08:59 05/29/23 08:59 Height: 5 ft 5.5 in Weight (kg): 123.8 kg Body Mass Index: 44.7 BMI Classification: Morbidly Obese - NPO >8 hours - Is Patient ?: No - Lab Results Current Lab Results: Laboratory Tests 05/29/23 06:59: POC Whole Bld Glucose 174 H Home Medications and Allergies Home Medications: Ambulatory Orders Dulaglutide [Trulicity] 1.5 mg SUBQ OAW 05/23/23 Furosemide [Lasix] 20 mg PO DAILY 05/23/23 Losartan Potassium 12.5 mg PO DAILY 05/23/23 metFORMIN [Glucophage] 1,000 mg PO BIDWM 05/23/23 Acetaminophen [Tylenol] 650 mg PO Q4HR PRN 12/10/16 Ascorbic Acid [Vitamin C] 1,000 mg PO DAILY 09/29/18 Cholecalciferol (Vitamin D3) [Vitamin D3] 5,000 unit PO DAILY 09/29/18 Insulin Aspart [NovoLOG] 28 unit SQ TID 01/23/22 Insulin Glargine [Lantus Solostar] 30 unit SQ QPM 01/23/22 Rosuvastatin Calcium [Crestor] 5 mg PO DAILY 01/23/22 Lysine [l-Lysine] 1,000 mg PO DAILY 04/12/22 Magnesium Oxide [Magnesium] 500 mg PO DAILY 04/12/22 Zinc Gluconate [Zinc] 50 mg PO DAILY 04/12/22 diphenhydrAMINE [Benadryl] 25 mg PO HS 04/12/22 Dulaglutide [Trulicity] 1.5 mg SUBQ OAW 05/23/23 Furosemide [Lasix] 20 mg PO DAILY 05/23/23 Losartan Potassium 12.5 mg PO DAILY 05/23/23 metFORMIN [Glucophage] 1,000 mg PO BIDWM 05/23/23 Allergies/Adverse Reactions: Allergies Allergy/AdvReac Type Severity Reaction Status Date / Time No Known Drug Allergies Allergy Verified 05/23/23 12:32 Anes History & Medical History - Anesthetic History Anesthesia Complications: reports: No previous complications Family history of Anesthesia Complications: Denies Family history of Malignant Hyperthermia: Denies - Medical History Cardiovascular: reports: Hypertension, High cholesterol, Coronary artery disease, Murmur Pulmonary: reports: COPD, Pneumonia, Sleep apnea Gastrointestinal: reports: GERD Urinary: reports: None Neuro: reports: None Musculoskeletal: reports: Osteoarthritis, Fibromyalgia, Chronic back pain Endocrine/Autoimmune: reports: Type 2 diabetes Skin: reports: None Smoking Status: Never smoker - Surgical History General: reports: Colonoscopy Eyes Ears Nose Throat (EENT): reports: Other Orthopedic: reports: Carpal Tunnel surgery, Other Exam General: Alert, Oriented x3, Cooperative Dental: WNL Mouth Openin Fingerbreadth Neck Mobility: Normal Mallampati classification: II Respiratory: Lungs clear Cardiovascular: Regular rate Plan Anesthesia Type: General, Total IV Consent for Procedure(s) Verified and Reviewed: Yes Code Status: Attempt Resuscitation ASA classification: 3-Severe systemic disease Is this case an emergency?: No
--- NOTE | 2023-05-29 17:11 | ANESTHESIA POST OP EVALUATION ---
Anesthesia Post Eval - Post Anesthesia Eval Vitals: Last Vital Signs Temp 36.4 C L 05/29/23 08:41 Pulse 90 05/29/23 08:59 Resp 18 05/29/23 08:59 BP 121/57 L 05/29/23 08:59 Pulse Ox 95 05/29/23 08:59 O2 Flow Rate CV Function Including HR & BP: Stable Pain Control: Satisfactory Nausea & Vomiting: Negative Mental Status: Baseline Respiratory Status: Airway Patent Hydration Status: Satisfactory Anesthesia Complications: None
== END 2023-05-29 06:21 | disposition home or self-care (01) ==
LOC: SDS 06:20
PROVIDERS: ATTEND Surgery
PROC: 0DBN8ZX Excision of Sigmoid Colon, Via Natural or Artificial Opening Endoscopic, Diagnostic (ICD-10-PCS; 2023-05-29)
PROC: 0DBM8ZX Excision of Descending Colon, Via Natural or Artificial Opening Endoscopic, Diagnostic (ICD-10-PCS; 2023-05-29)
PROC: 0DBH8ZX Excision of Cecum, Via Natural or Artificial Opening Endoscopic, Diagnostic (ICD-10-PCS; 2023-05-29)
PROC: 0DBK8ZX Excision of Ascending Colon, Via Natural or Artificial Opening Endoscopic, Diagnostic (ICD-10-PCS; principal; 2023-05-29 07:30)
DX: Z12.11 Encounter for screening for malignant neoplasm of colon (principal); D12.0 Benign neoplasm of cecum; D12.2 Benign neoplasm of ascending colon; D12.4 Benign neoplasm of descending colon; D12.7 Benign neoplasm of rectosigmoid junction; K57.30 Diverticulosis of large intestine without perforation or abscess without bleeding; E11.9 Type 2 diabetes mellitus without complications; I10 Essential (primary) hypertension; I25.10 Atherosclerotic heart disease of native coronary artery without angina pectoris; Z79.4 Long term (current) use of insulin; G47.30 Sleep apnea, unspecified; J44.9 Chronic obstructive pulmonary disease, unspecified; E66.01 Morbid (severe) obesity due to excess calories; Z68.41 Body mass index [BMI] 40.0-44.9, adult; Z79.84 Long term (current) use of oral hypoglycemic drugs; E78.5 Hyperlipidemia, unspecified
CPT/HCPCS: 45380; 45385; A9270; J7120

== ENCOUNTER 2023-06-20 09:45 | Outpatient (CLI) | payer MEDICARE, OTHER ==
--- NOTE | 2023-06-20 13:17 | XRAY Report ---
PROCEDURE: Shoulder 2+V LT INDICATIONS: PAIN IN LEFT SHOULDER TECHNIQUE: 3 views of the shoulder were acquired. COMPARISON: None. FINDINGS: Bones: Moderate to severe glenohumeral and moderate acromioclavicular degenerative changes. Prominen t osteophyte projecting into axillary pouch from the humerus. No displaced fracture or dislocation. Soft tissues: Calcific tendinopathy. IMPRESSION: Advanced degenerative changes. Calcific tendinopathy. If there is high concern for further derangemen t, consider MRI evaluation. Reviewed by: Daniel Marino MD on 06/20/2023 1:15 PM PDT Approved by: Daniel Marino MD on 06/20/2023 1:15 PM PDT Station ID: [id number]
--- NOTE | 2023-06-20 13:18 | XRAY Report ---
PROCEDURE: Finger(s) LT INDICATIONS: PAIN IN LEFT SHOULDER TECHNIQUE: AP hand, 2 views of the first finger(s) acquired. COMPARISON: None. FINDINGS: Bones: Deformity and cystic change at the volar base of the distal phalanx. Scattered degenerative c hanges, mild to moderate, particularly at the second and third DIPs, and first CMC. Soft tissues: No suspicious calcifications. IMPRESSION: There is an age-indeterminate deformity and cystic change at the volar base of the distal phalanx, co rrelate with location of symptoms. Mild to moderate degenerative changes seen throughout the hand. If there is high concern for further derangement, consider MRI evaluation. Reviewed by: Daniel Marino MD on 06/20/2023 1:17 PM PDT Approved by: Daniel Marino MD on 06/20/2023 1:17 PM PDT Station ID: [id number]
== END 2023-06-20 10:00 | disposition home or self-care (01) ==
LOC: DI.N 09:45
PROVIDERS: ATTEND Nurse Practitioner
DX: M18.12 Unilateral primary osteoarthritis of first carpometacarpal joint, left hand (principal); M19.012 Primary osteoarthritis, left shoulder; M67.814 Other specified disorders of tendon, left shoulder

== ENCOUNTER 2023-07-05 00:22 | Emergency (ER) | payer MEDICARE, OTHER ==
[2023-07-05 01:08] VITALS: BP 170/79; O2SAT 96
--- NOTE | 2023-07-05 01:43 | ED Physician Documentation ---
History of Present Illness - Stated complaint Stated Complaint: L HAND PX - Chief complaint Chief Complaint: Ext Problem - History obtained from History obtained from: Patient - Additonal information Additional information: 72-year-old woman with history of arthritis, fibromyalgia, chronic pain, shingles episode of left upper extremity now resolved, presents with left arm and hand pain for the past few weeks as well as 5 days of myalgias, numbness and finger weakness. Denies discoloration or specific injury PD PAST MEDICAL HISTORY - Past Medical History Cardiovascular: Hypertension, High cholesterol, Coronary artery disease, Murmur Respiratory: COPD, Pneumonia, Sleep apnea Neuro: None Endocrine/Autoimmune: Type 2 diabetes GI: GERD : None HEENT: Chronic vision loss, Chronic sinusitis Psych: Depression, Anxiety, ADD/ADHD Musculoskeletal: Osteoarthritis, Fibromyalgia, Chronic back pain Derm: None - Past Surgical History Past Surgical History: Yes General: Colonoscopy Ortho: Carpal Tunnel surgery, Other HEENT: Other - Present Medications Home Medications: Ambulatory Orders Medication Instructions Recorded Confirmed Acetaminophen [Tylenol] 650 mg PO Q4HR PRN 12/10/16 05/29/23 Ascorbic Acid [Vitamin C] 1,000 mg PO DAILY 09/29/18 05/29/23 Cholecalciferol (Vitamin D3) 5,000 unit PO DAILY 09/29/18 05/29/23 [Vitamin D3] Albuterol Sulfate [Proair Hfa 1 - 2 puffs INH Q4H PRN #1 inhaler 04/16/19 05/29/23 Inhaler] Insulin Aspart [NovoLOG] 28 unit SQ TID 01/23/22 05/29/23 Insulin Glargine [Lantus Solostar] 30 unit SQ QPM 01/23/22 05/29/23 Rosuvastatin Calcium [Crestor] 5 mg PO DAILY 01/23/22 05/29/23 Lysine [l-Lysine] 1,000 mg PO DAILY 04/12/22 05/29/23 Magnesium Oxide [Magnesium] 500 mg PO DAILY 04/12/22 05/29/23 Zinc Gluconate [Zinc] 50 mg PO DAILY 04/12/22 05/29/23 diphenhydrAMINE [Benadryl] 25 mg PO HS 04/12/22 05/29/23 Dulaglutide [Trulicity] 1.5 mg SUBQ OAW 05/23/23 05/29/23 Furosemide [Lasix] 20 mg PO DAILY 05/23/23 05/29/23 Losartan Potassium 12.5 mg PO DAILY 05/23/23 05/29/23 metFORMIN [Glucophage] 1,000 mg PO BIDWM 05/23/23 05/29/23 Oxycodone HCl/Acetaminophen 1 each PO Q4H PRN #10 tablet 07/05/23 [Percocet 10-325 mg Tablet] - Allergies Allergies/Adverse Reactions: Allergies Allergy/AdvReac Type Severity Reaction Status Date / Time No Known Drug Allergies Allergy Verified 07/05/23 00:54 - Social History Does the pt smoke?: No Smoking Status: Never smoker Does the pt drink ETOH?: No Does the pt have substance abuse?: No - Immunizations Immunizations are current?: Yes - POLST Patient has POLST: No POLST Status: Full Code PD ED PE NORMAL - Vitals Vital signs reviewed: Yes - General General: Alert and oriented X 3, No acute distress, Well developed/nourished - HEENT HEENT: Atraumatic, PERRL, EOMI - Derm Derm: Normal color, Warm and dry - Extremities Extremities: Other (CSM intact left upper extremity. Visible deformity/arthritis to fingers of BL hands. Diminished strength bilateral upper extremities) Results - Vitals Vitals: Vital Signs - 24 hr 07/05/23 01:03 Temperature 36 C L Heart Rate 110 H Respiratory 16 Rate Blood Pressure 170/79 H O2 Saturation 96 Oxygen O2 Source [Without Activity] Room air O2 Source [With Activity] Room air O2 Source Room air PD Medical Decision Making - ED course ED course: 72-year-old woman with history of chronic pain and recent shingles episode presents with left hand and forearm pain for the past 3 weeks. Patient has had relief with Percocet but states she ran out. Hand function is preserved on physical exam and she has strong radial pulse, intact sensation and good ROM. Prescription was refilled and return precautions given. Advised outpatient follow-up with primary care provider for referral to hand orthopedics and occupational therapy. Departure - Departure Disposition: 01 Home, Self Care Clinical Impression: Pain in extremity, Hand weakness Condition: Stable Instructions: Arthritis Follow-Up: Ankur Lee MD [Physician No Access] - Prescriptions: Oxycodone HCl/Acetaminophen [Percocet 10-325 mg Tablet] 1 each PO Q4H PRN #10 tablet PRN Reason: Pain Comments: You were seen in the emergency department for medical evaluation. I reviewed your xrays from June 19 and have no additional findings to add aside from the radiologist's interpretation. I recommend follow up with a hand orthopedist (referral provided) and with occupational therapy. Pain medication sent electronically to the [facility] pharmacy. Please follow-up with your primary care provider as well and return to the emergency department if you have any new or worsening symptoms or other concerns. Forms: PCP List
[2023-07-05] MEDS: oxyCODONE/ACET 5/325 Prepack 4 PO STA (02:17)
== END 2023-07-05 02:20 | disposition home or self-care (01) ==
LOC: ED 00:22
DX: M79.602 Pain in left arm (principal); R53.1 Weakness; I10 Essential (primary) hypertension; E78.00 Pure hypercholesterolemia, unspecified; I25.10 Atherosclerotic heart disease of native coronary artery without angina pectoris; J44.9 Chronic obstructive pulmonary disease, unspecified; G47.30 Sleep apnea, unspecified; E11.9 Type 2 diabetes mellitus without complications; M79.7 Fibromyalgia; Z79.4 Long term (current) use of insulin; Z79.899 Other long term (current) drug therapy
CPT/HCPCS: 99282; 99283

== ENCOUNTER 2023-08-13 14:32 | Outpatient (CLI) | payer MEDICARE, OTHER ==
--- NOTE | 2023-08-13 17:05 | MRI Report ---
PROCEDURE: Finger(s) LT WO INDICATIONS: First and second digit pain and numbness TECHNIQUE: Noncontrast oblique coronal T1 spin echo and T2 fast spin echo with fat saturation, axial and sagitta l T2 fast spin echo with fat saturation, through the thumb. COMPARISON: Radiograph on 06/20/2023. FINDINGS: Image quality: Excellent. Bone and muscle: Moderate degenerative changes at the first metacarpophalangeal joint. Severe degener ative changes at the first interphalangeal joint. Marked subcutaneous edema of the thumb. There is di ffuse, mild muscle edema of the the thenar musculature, involving the abductor pollicis brevis and th e opponens pollicis. There is moderate erosive osteoarthritis of the second, and third distal interphalangeal joint, with associated mild subchondral marrow edema. Mild degenerative change of the second and third metatarsop halangeal joint. Metacarpophalangeal joint(s): The radial and ulnar collateral ligaments appear intact. The overlyin g aponeurosis of the adductor pollicis muscle also appears normal. The volar plate appears intact on sagittal images. Interphalangeal joint(s): The accessory and proper collateral ligaments appear intact. The volar pl ate demonstrates normal morphology. The extensor central slip appears intact on sagittal images. Tendons: The visualized flexor and extensor tendons appear intact and in expected positions. IMPRESSION: 1.Multifocal moderate and severe degenerative changes of the thumb as described above. Marked subcuta neous edema of the thumb, nonspecific. 2.Diffuse, mild muscle edema of the the thenar musculature, nonspecific and may be secondary to dener vation. 3.Erosive osteoarthritis of the second and third distal interphalangeal joint. Reviewed by: Che Cash MD on 08/13/2023 5:04 PM PDT Approved by: Che Cash MD on 08/13/2023 5:04 PM PDT Station ID: [id number]
--- NOTE | 2023-08-13 17:32 | MRI Report ---
Shoulder LT WO CLINICAL HISTORY: 72 years of age, Female, L SHOULDER IMPINGEMENT. Comparison: Radiograph on 06/20/2023 Technique: Multiplanar, multisequence MRI of the left shoulder was performed without intravenous con trast. IV Contrast: Not Administered. Findings: Osseous acromial outlet: Moderate degenerative changes at the acromioclavicular joint. Type II acromi on on sagittal imaging. No os acromiale. No significant subacromial/subdeltoid bursal fluid. Rotator cuff muscles and tendons: Severe tendinosis of the supraspinatus with low-grade interstitial tear at the critical zone and the footprint of the posterior fiber (7:12). The infraspinatus is unrem arkable. The tendon of the teres minor is intact. There is diffuse mild muscle edema of the teres min or without fatty atrophy. Severe tendinosis of the superior fibers of the subscapularis, with low-gra de interstitial tear. No fatty atrophy of the rotator cuff musculature Labral and capsular structures: Diffuse degeneration. Thickening of the inferior glenohumeral ligamen t, with the obscuration of fat at the rotator interval, which can be seen in the setting of adhesive capsulitis. Biceps tendon and anchor: The extra-articular biceps tendon is medially subluxed into the interstitia l tear of the subscapularis. The intra-articular biceps tendon is not well-visualized. Osseous and cartilaginous structures: Multifocal subchondral cystic changes in the humeral head, reac tive. There is extensive subchondral cyst cystic changes in the inferior glenoid,, degenerative. Saige re degenerative changes of the glenohumeral articulation with high-grade chondral loss of the humeral head, and humeral head osteophytosis. High-grade chondral loss of the glenoid as well. Miscellaneous: No significant glenohumeral effusion. No intra-articular bodies. There is diffuse mi ld muscle edema of the deltoid musculature with mild fatty infiltration. IMPRESSION: 1.Moderate degenerative changes of the acromioclavicular joint. 2.Severe tendinosis supraspinatus with low-grade tear. 3.Severe tendinosis of the superior fibers of the subscapularis with low-grade tear. 4.Mild muscle edema of the teres minor and deltoid, nonspecific. 5.Intra-articular biceps tendon is not visualized. 6.Findings concerning for adhesive capsulitis. 7.Severe degenerative change of the glenohumeral joint. Reviewed by: Che Cash MD on 08/13/2023 5:30 PM PDT Approved by: Che Cash MD on 08/13/2023 5:30 PM PDT Station ID: [id number]
== END 2023-08-13 14:33 | disposition home or self-care (01) ==
LOC: DI 14:32
PROVIDERS: ATTEND Nurse Practitioner Family
DX: M67.814 Other specified disorders of tendon, left shoulder (principal); M75.112 Incomplete rotator cuff tear or rupture of left shoulder, not specified as traumatic; R93.6 Abnormal findings on diagnostic imaging of limbs; M18.12 Unilateral primary osteoarthritis of first carpometacarpal joint, left hand

== ENCOUNTER 2023-09-18 12:19 | Outpatient (CLI) | payer MEDICARE, OTHER ==
[2023-09-18 17:41] LABS: BASOPHILS # (AUTO) 0.1 10^3/uL (0.0-0.1); BASOPHILS % (AUTO) 0.5 %; EOSINOPHILS # (AUTO) 0.2 10^3/uL (0.0-0.7); EOSINOPHILS % (AUTO) 1.5 %; HCT - HEMATOCRIT 44.9 % (37.0-47.0); HGB - HEMOGLOBIN 14.3 g/dL (12.0-16.0); LYMPHOCYTES # (AUTO) 2.1 10^3/uL (1.5-3.5); LYMPHOCYTES % (AUTO) 19.4 %; MEAN CORPUSCULAR HEMOGLOBIN 30.4 pg (27.0-31.0); MEAN CORPUSCULAR HGB CONC 31.8 g/dL (32.0-36.0); MEAN CORPUSCULAR VOLUME 95.3 fL (81.0-99.0); MEAN PLATELET VOLUME 10.2 fL (7.9-10.8); MONOCYTES % (AUTO) 8.7 %; NEUTROPHILS # (AUTO) 7.6 10^3/uL (1.5-6.6); NEUTROPHILS % (AUTO) 69.2 %; PLT - PLATELET COUNT 319 10^3/uL (130-450); RED BLOOD COUNT 4.71 10^6/uL (4.20-5.40); RED CELL DISTRIBUTION WIDTH 14.3 % (12.0-15.0)
[2023-09-18 17:59] LABS: BUN - BLOOD UREA NITROGEN 13 mg/dL (6-20); CALCIUM 9.4 mg/dL (8.5-10.3); CARBON DIOXIDE - CO2 28 mmol/L (21-32); CHLORIDE 104 mmol/L (101-111); CHOL/HDL RATIO 3.2 (<4.4); CHOLESTEROL 148 mg/dL; CREATININE 0.5 mg/dL (0.6-1.3); GFR - MDRD 121 (>89); GLUCOSE 149 mg/dL (74-104); HDL CHOLESTEROL 46 mg/dL; LDL CHOLESTEROL,CALCULATED 75 mg/dL; LDL/HDL RATIO 1.6 (<4.4); POTASSIUM 4.4 mmol/L (3.5-4.5); SODIUM 137 mmol/L (135-145); TRIGLYCERIDES 136 mg/dL (48-352); VLDL CHOLESTEROL 27 mg/dL
[2023-09-18 20:46] LABS: ESTIMATED AVERAGE GLUCOSE 148 mg/dL (70-100); HEMOGLOBIN A1c% 6.8 % (4.27-6.07)
== END 2023-09-18 12:20 | disposition home or self-care (01) ==
LOC: LAB.N 12:19
PROVIDERS: ATTEND Nurse Practitioner Family
DX: I10 Essential (primary) hypertension (principal); E78.5 Hyperlipidemia, unspecified; E11.8 Type 2 diabetes mellitus with unspecified complications
CPT/HCPCS: 36415; 80048; 80061; 83036; 83721; 85025

== ENCOUNTER 2023-12-25 12:21 | Outpatient (CLI) | payer MEDICARE, OTHER | END 2023-12-25 12:22 | disposition home or self-care (01) | LOC: DI 12:21 | PROVIDERS: ATTEND Nurse Practitioner Family | DX: I49.1 Atrial premature depolarization (principal); E78.5 Hyperlipidemia, unspecified; I10 Essential (primary) hypertension; I25.10 Atherosclerotic heart disease of native coronary artery without angina pectoris; R94.31 Abnormal electrocardiogram [ECG] [EKG] | CPT/HCPCS: 93307 ==